=== PATIENT | male | born 1940 | race Caucasian/White ===

== ENCOUNTER → 2018-02-03 | Outpatient (CLI) | payer MEDICARE, BC | END | disposition home or self-care (01) | LOC: PNCL 08:16 | DX: M54.12 Radiculopathy, cervical region (principal) | CPT/HCPCS: 72125; G0463 ==

== ENCOUNTER → 2018-02-10 | Outpatient (CLI) | payer MEDICARE, BC ==
[~2018-02-10] MED LIST: IOHEXOL 180 MG/ML 10 ML VIAL.; LIDOCAINE 1% PF 2 ML VIAL.; methylPREDNISolone ACETATE 40 MG/ML VIAL.; methylPREDNISolone ACETATE 80 MG/ML VIAL.
== END | disposition home or self-care (01) ==
LOC: PNCL 09:21
DX: M50.123 Cervical disc disorder at C6-C7 level with radiculopathy (principal); M48.02 Spinal stenosis, cervical region; K21.9 Gastro-esophageal reflux disease without esophagitis; Z88.1 Allergy status to other antibiotic agents; Z88.8 Allergy status to other drugs, medicaments and biological substances; Z95.810 Presence of automatic (implantable) cardiac defibrillator; Z90.49 Acquired absence of other specified parts of digestive tract; Z85.46 Personal history of malignant neoplasm of prostate; Z90.79 Acquired absence of other genital organ(s); M19.90 Unspecified osteoarthritis, unspecified site; F17.200 Nicotine dependence, unspecified, uncomplicated; Z82.49 Family history of ischemic heart disease and other diseases of the circulatory system; Z83.3 Family history of diabetes mellitus
CPT/HCPCS: 62321; J1030; J1040; Q9965

== ENCOUNTER → 2018-02-24 | Outpatient (CLI) | payer MEDICARE, BC | END | disposition home or self-care (01) | LOC: PNCL 08:56 | DX: M50.10 Cervical disc disorder with radiculopathy, unspecified cervical region (principal); M48.02 Spinal stenosis, cervical region; I10 Essential (primary) hypertension; K21.9 Gastro-esophageal reflux disease without esophagitis; Z82.49 Family history of ischemic heart disease and other diseases of the circulatory system; Z83.3 Family history of diabetes mellitus; Z95.810 Presence of automatic (implantable) cardiac defibrillator; Z90.49 Acquired absence of other specified parts of digestive tract; Z90.79 Acquired absence of other genital organ(s) | CPT/HCPCS: G0463 ==

== ENCOUNTER 2018-06-10 09:17 | Inpatient (IN) | payer MEDICARE, BC ==
[2018-06-10] VITALS (22 sets, daily range): BP systolic 89–150; BP diastolic 60–87
[~2018-06-10] VITALS: Ht 188 cm; Wt 96.2 kg
[~2018-06-10 09:17] MED LIST changes: +AMIO200T4; +AMIO200T4 PO; +ASCO500T2 PO; +ASPI-482 PO; +BERBERINE; +CALC500T54 PO; +CHOL500016 PO; +D RIBOSE; +ESTRODIM; +GLUC100018 PO; +GRAPE SEED; +GREE250C PO; -IOHEXOL 180 MG/ML 10 ML VIAL.; +LEVO125T; -LIDOCAINE 1% PF 2 ML VIAL.; +MAGN400C PO; +METO200T46; +NIAC500T PO; +OMEG-165 PO; +OXYC1TAB15 PO; +POTA20TA4; +PRAS50CA PO; +TAMS0.4C2; +THYR60TA2 PO; +VITA1TAB19 PO; +VITA400C36 PO; +[UNRECOGNIZED DRUG - OTHER]; -methylPREDNISolone ACETATE 40 MG/ML VIAL.; -methylPREDNISolone ACETATE 80 MG/ML VIAL.
[2018-06-10] MEDS ORDERED: ESMOLOL 2500MG/250ML PREMIX 250 ML IV PRN (10:15)
[2018-06-10] MEDS ORDERED: LIDOCAINE 2GM/D5W 500ML PREMIX 500 ML IV PRN (10:15)
[2018-06-10] MEDS ORDERED: LIDOCAINE 2% 100 MG/5 ML SYRINGE. IV ONE (10:15)
[2018-06-10 11:16] LABS: HEMATOCRIT 37.2 % (39.0-53.0); RED BLOOD COUNT 3.75 x10^6/uL (4.30-5.70); RED CELL DISTRIBUTION WIDTH 12.5 % (11.5-14.5); WHITE BLOOD COUNT 5.2 x10^3/uL (4.0-11.0)
[2018-06-10] MEDS ORDERED: MIDAZOLAM HCL/PF 5 MG/5 ML VIAL. ONE ×2 (11:20→12:00)
[2018-06-10] MEDS ORDERED: fentaNYL PF VIAL 100 MCG/2 ML VIAL IV ONE (11:30)
[2018-06-10] MEDS ORDERED: MIDAZOLAM HCL/PF 2 MG/2 ML VIAL. IV ONE ×2 (11:30→13:30)
[2018-06-10] MEDS ORDERED: PROCAINAMIDE 2,000 MG in IV DEXTROSE 5% 500 ML IV PRN (11:30)
[2018-06-10 11:42] LABS: ALBUMIN 3.3 g/dL (3.4-5.0); ALBUMIN/GLOBULIN RATIO 1.1 (1.0-1.7); CALCIUM 8.2 mg/dL (8.5-10.1); GFR 72.5; POTASSIUM 4.4 mmol/L (3.5-5.1); TOTAL BILIRUBIN 0.7 mg/dL (0.2-1.0); TOTAL PROTEIN 6.2 g/dL (6.4-8.2)
[2018-06-10] MEDS ORDERED: PROPOFOL 100 ML IV ONE ×2 (11:53→14:46)
[2018-06-10] MEDS ORDERED: fentaNYL PF VIAL 100 MCG/2 ML VIAL ONE (12:00)
[2018-06-10] MEDS ORDERED: ROCURONIUM 50 MG/5 ML VIAL. ONE (12:00)
[2018-06-10] MEDS ORDERED: PROPOFOL 10 MG/ML (100ML) VIAL. IV ONE (12:00)
[2018-06-10] MEDS ORDERED: ETOMIDATE 20 MG/10 ML VIAL. IV ONE (12:00)
--- NOTE | 2018-06-10 12:06 | PDOC2 ---
CARDIOLOGY CONSULT NOTE CHEIF COMPLAINT: ICD shock. HPI: 77 y.o male with pmx has noted below presenting with ICD shocks. He reports feeling poorly for 2 weeks. Denies any chest pain or dyspnea. He came to ER with episodes of VF and was shocked. His ER labs were not significantly abnormal. Denies any recent changes to meds. Transferred to [place]. He has had recurrent shocks here. He has been started on Amiodarone, procainamide and esmolol gtts. No new OTC meds. PMHX: 1. 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 Normal LV function by echo in 2016 3. Prediabetes 4. Prostate CA. SOCHX: No smoking or illicit drugs. Occ alcohol use. FAMHX: NC CURRENT MEDS: amiodarone, procainamide and esmolol gtt ALLERGIES: Allergies Coded Allergies Type Severity Reaction Last Updated Verified mexiletine Allergy Severe 07/27/17 Yes Cephalosporins Allergy Intermediate itching and swelling 07/27/17 Yes amoxicillin Allergy Intermediate 07/27/17 Yes cefazolin Allergy Intermediate 07/27/17 Yes cephalexin Allergy Intermediate 07/27/17 Yes clavulanic acid Allergy Intermediate 07/27/17 Yes ROS: Negative for 05/02 systems reviewed unless noted above. PHYSICAL EXAM: Vital Signs: HR 60, BP 154/78, RR 14, Pox 95% on 2L Physical Exam: GEN.: No apparent distress. Alert and oriented. HEENT: Head is normocephalic, atraumatic NECK: Supple. LUNGS: Clear to auscultation. HEART: RRR, S1, S2 present. Peripheral pulses intact ABDOMEN: Soft, nontender. Positive bowel sounds. EXTREMITIES: Without any cyanosis. NEUROLOGIC: Normal speech, normal tone PSYCHIATRIC: Normal affect, normal mood. SKIN: No ulcerations DIAGNOSTIC TESTING: EKG: SR, frequent PVC's ICD interrogation: VF successful shocked. NSVT episodes. Labs reviewed, Mg 2.0, K 4.2 Limited Bedside echo: no effusion. EF 40%, global hypokinesis. ASSESSMENT: 1. VF storm 2. Idiopathic VT PLAN: 1. Due to recurrent shocks - approximately 7 despite IV amio and esmolol, will plan for intubation and sedation. 2. Discussed r/b/a of heart cath etc with patient and , they are willing to proceed. 3. Close monitoring of EKG's and lytes. 4. Will consider IABP if needed if any significant hypotension. JORGE LUIS FLORES MD Jun 10, 2018 12:06
[2018-06-10] MEDS ORDERED: MAGNESIUM SULFATE 1GM 100 ML IV ONE (12:30)
--- NOTE | 2018-06-10 12:30 | RAD ---
Single view chest 06/10/2018 CLINICAL INDICATION: Intubation. COMPARISON: None. FINDINGS: Endotracheal tube 3 cm above the level the enid. Mild cardiomegaly without pulmonary venous congestion. There is an irregular nodular opacity in the right midlung. No pleural effusion or pneumothorax. Mild basilar atelectasis. Left chest wall cardiac conduction device. There are multiple abandoned right cardiac conduction leads. IMPRESSION: 1. Endotracheal tube, as detailed. 2. Right midlung nodular opacity, indeterminate. Follow-up CT chest is recommended to exclude pulmonary nodule. Electronically signed by: Mo Mcneil MD (06/10/2018 12:27 PM) [facility]
[2018-06-10] MEDS ORDERED: MIDAZOLAM HCL/PF 2 MG/2 ML VIAL. ONE ×2 (12:32→13:18)
[2018-06-10] MEDS ORDERED: HEPARIN for IV BOLUS 10,000 UNIT/10 ML VIAL. ONE (12:51)
[2018-06-10] MEDS ORDERED: IODIXANOL 320 MG/ML 100 ML VIAL. ONE (13:08)
[2018-06-10] MEDS: IV NORMAL SALINE 1000ML BAG 1,000 ML IV SCH (13:08)
[2018-06-10] MEDS ORDERED: TIROFIBAN 5MG -0.9% NS 100 ML IV ONE (13:09)
[2018-06-10] MEDS: TIROFIBAN 5MG -0.9% NS 100 ML IV PRN ×2 (13:14→16:50)
[2018-06-10] MEDS ORDERED: NITROGLYCERIN 200 MCG/2 ML SYRINGE FOR CATH/VASC LAB. ICAR ONE (13:30)
[2018-06-10] MEDS ORDERED: ASPIRIN 325 MG TABLET PO ONE (13:30)
[2018-06-10] MEDS ORDERED: TICAGRELOR 90 MG TABLET. PO ONE (13:30)
[2018-06-10] MEDS ORDERED: LIDOCAINE 1% PF 30 ML VIAL. INJ ONE (13:30)
[2018-06-10] MEDS ORDERED: HEPARIN for IV BOLUS 10,000 UNIT/10 ML VIAL. IV ONE (13:30)
[2018-06-10] MEDS ORDERED: IODIXANOL 320 MG/ML 100 ML VIAL. IART ONE (13:30)
[2018-06-10] MEDS ORDERED: DEXTROSE 50% 25 GM / 50ML DISP.SYRIN. IV PRN (14:15)
[2018-06-10] MEDS ORDERED: MIDAZOLAM 100mg/100ml NS BAG 100 ML IV PRN (14:15)
[2018-06-10] MEDS ORDERED: fentaNYL PF VIAL 100 MCG/2 ML VIAL IV PRN (14:15)
[2018-06-10] MEDS: INSULIN LISPRO 300 UNITS/3 ML INSULN.PEN. SQ SCH ×2 (14:30→16:50)
[2018-06-10 15:50] LABS: BASE EXCESS ABG -4 mmol/L (-3-3); HCO3 ABG 19 mmol/L (21-28); PCO2 ABG 28 mmHg (35-46); PO2 ABG 144 mmHg (65-108); SAT O2 ABG 98 % (92-99)
[2018-06-10 15:54] LABS: FIO2 ABG 50
--- NOTE | 2018-06-10 15:55 | CARD ---
MR#: [id number] Date of Study: 06/10/2018 Ordering Physician: JORGE LUIS LONGORIA, Referring Physician: DALIA TREVIÑO, Tech: RT Ankur (R) APPROVED REPORT Technologist: RT Ankur (R) Nurse: Dayan Dahl R.N. Procedure(s) performed: Sedation time: 86 minutes [facility], Coronary angiography PCI of the LAD HISTORY The patient is a 77 year-old male with a history of : coronary artery disease, hypertension. INDICATION The indication(s) include : arrhythmia, VF/VT storm.. PROCEDURE NARRATIVE After explaining the risks and benefits of the procedure and alternatives, informed consent was obtai santiago. The patient was brought electively to the cardiac catheterization lab in a fasting state. A yaniv eout was performed confirming the patient's name, date of , procedure, and site of procedure. A ll necessary personnel were wearing the appropriate protective equipment and radiation monitor device s. (See nursing notes for medications administered). The right groin was sterilely prepped and drap ed in the usual fashion. The right groin was infiltrated with 10 mL of 2% lidocaine for subcutaneous anesthesia. A 6 F sheath was inserted into the right femoral artery without difficulty. Right and left coronary angiography was performed using a JR4 and JL4 catheter. Left ventricular end diastolic pressure was obtained with a pigtail catheter and pullback was performed after left ventriculography . Subsequently, a 5 Liberian sheath was inserted into the left common femoral artery in preparation for LAD angioplasty in the setting of VT storm for possibility of injured balloon pump placement if nece ssary. HEMODYNAMICS: AO: 80/60 LVEDP 8 mm Hg No gradient on LV to aortic pullback. LEFT VENTRICULOGRAM: EF 40-45%. Mild global hypokinesis. CORONARY ANGIOGRAPHY: LM is a large caliber vessel with a mid 30% stenosis followed by mid to distal ectasia. LAD is a large caliber vessel proximally and rapidly tapers to a small size vessel after the 1st diag onal. There is a mid 90% stenosis after the diagonal. D1 is a moderate caliber vessel with mild luminal irregularities. LCx is a moderate caliber non-dominant vessel with grossly normal appearance. This vessel has an anom alous origin from the RCC/RCA ostia. OM1 is a moderate caliber vessel with normal angiographic appearance. RCA is a large caliber dominant vessel with mild luminal irregularities. RPDA/RPL are moderate caliber vessels with mild luminal irregularities. Interventional technique: Heparin and tirofiban were used for an to regulation. In light of the patient's significant arrhythmi as with recurrent VF storm and ICD shocks and a critical LAD stenosis and intervention was then perfo rmed. Through a 6 Liberian JL4 guide catheter a 0.014 inch pro-water wire was advanced to the distal LA D. The mid LAD lesion was then angioplastied with a 2.5 x 15 mm balloon at 14 maciej and then subsequent only stented with a resolute 3.5 x 22 mm drug-eluting stent and postdilated with a 4.0 mm noncomplia nt balloon at 16 maciej. Post-PCI angiography demonstrated excellent stent expansion with ADRYAN-3 flow an d no evidence of guider wire-related competitions. The right groin access site sheath was removed and an Angio-Seal device was placed. The left groin ac cess site sheath was sutured to the skin and was used as an arterial line and the patient was transpo rted back to the ICU in critical condition. Conclusion 1. Cardiac arrest and subsequent shock due to VT/VF storm 2. One-vessel critical LAD stenosis status post PCI with a 3.5 x 22 mm drug-eluting stent postdilated with a 4.0 mm noncompliant balloon. 3. Normal left ventricular filling pressures Recommendations Aspirin 81 mg daily Ticagrelor 90 mg twice a day Continue statin therapy. Continue amiodarone and esmolol. We will wean off the procainamide drip over the next 12 hours. Supportive care for now. Discussed with family. Signed by : Jorge Luis Longoria, Electronically Approved : 06/10/2018 15:54:07
[2018-06-10] MEDS ORDERED: SODIUM BICARB ADULT 8.4% 50 MEQ/50 ML DISP.SYRIN. IV ONE (16:30)
--- NOTE | 2018-06-10 17:21 | EKG ---
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
--- NOTE | 2018-06-10 19:39 | PDOC1 ---
History and Physical History of Present Illness History of Present Illness HP per cards: 77 y.o male with pmx has noted below presenting with ICD shocks. He reports feeling poorly for 2 weeks. Denies any chest pain or dyspnea. He came to ER with episodes of VF and was shocked. His ER labs were not significantly abnormal. Denies any recent changes to meds. Transferred to [place]. He has had recurrent shocks here. He has been started on Amiodarone, procainamide and esmolol gtts. No new OTC meds. 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 Past Medical History Cardiovascular: HTN, Other Pulmonary: No pertinent hx GI: No pertinent hx Heme/Onc: No pertinent hx Hepatobiliary: No pertinent hx Psych: No pertinent hx Rheumatologic: No pertinent hx Infectious disease: No pertinent hx Renal/: No pertinent hx Endocrine: No pertinent hx Past Surgical History Past Surgical History: Pacemaker, Other Family History Family History: No Significant Social History ALCOHOL: rare Drugs: None Current Medications Current Medications Current Medications Medications (Trade) Dose Ordered Sig/Jl Start Time Stop Time Status Last Admin Dose Admin Aspirin (Raj Aspirin) 325 mg 1X ONCE 06/10/18 13:30 06/10/18 13:41 DC 06/10/18 14:23 325 MG Dextrose (Dextrose 50%-Water Syringe) 12.5 gm PRN Q15MIN PRN 06/10/18 14:15 Esmolol HCl 250 ml @ 0 mls/hr CONT PRN 06/10/18 10:15 06/10/18 11:07 29.257 MLS/HR Famotidine (Pepcid Vial) 20 mg BID 06/10/18 21:00 Fentanyl Citrate (Fentanyl 2ml Vial) 50 mcg PRN Q1HR PRN 06/10/18 14:15 Heparin Sodium (Porcine) (Heparin Sodium) 7,000 unit 1X ONCE 06/10/18 13:30 06/10/18 13:41 DC 06/10/18 13:30 7,000 UNIT Heparin Sodium/ Sodium Chloride (HEPARIN for ARTERIAL LINE FLUSH) 1,000 unit 1X ONCE 06/10/18 13:30 06/10/18 13:41 DC 06/10/18 13:30 1,000 UNIT Insulin Human Lispro (HumaLOG) 0-5 UNITS Q6HRS 06/10/18 14:30 Iodixanol (Visipaque 320) 209 ml 1X ONCE 06/10/18 13:30 06/10/18 13:41 DC 06/10/18 13:30 209 ML Lidocaine HCl (Lidocaine HCl 2% Abboject) 80 mg 1X ONCE 06/10/18 10:15 06/10/18 10:17 DC Lidocaine HCl (Xylocaine 1% Pf 30ml Vial) 18 ml 1X ONCE 06/10/18 13:30 06/10/18 13:41 DC 06/10/18 13:30 18 ML Lidocaine HCl/ Dextrose 500 ml @ 0 mls/hr CONT PRN 06/10/18 10:15 06/10/18 10:17 DC Magnesium Sulfate/ Dextrose 100 ml @ 100 mls/hr 1X ONCE 06/10/18 12:30 06/10/18 13:29 DC 06/10/18 13:58 100 MLS/HR Midazolam HCl 100 ml @ 0 mls/hr CONT PRN 06/10/18 14:15 06/10/18 14:58 3 MLS/HR Midazolam HCl (Versed) 4 mg 1X ONCE 06/10/18 13:30 06/10/18 13:41 DC 06/10/18 13:30 4 MG Nitroglycerin (Nitroglycerin) 200 mcg 1X ONCE 06/10/18 13:30 06/10/18 13:41 DC 06/10/18 13:30 200 MCG Procainamide HCl 2000 mg/Dextrose 520 ml @ 15.6 mls/hr CONT PRN 06/10/18 11:30 06/10/18 11:36 15.6 MLS/HR Propofol 100 ml @ As Directed STK-MED ONCE 06/10/18 14:46 06/10/18 14:47 DC Sodium Bicarbonate (Sodium Bicarb Adult 8.4% Syr) 50 meq 1X ONCE 06/10/18 16:30 06/10/18 16:31 DC 06/10/18 16:50 50 MEQ Sodium Chloride 1,000 ml @ 75 mls/hr [id number] 06/10/18 14:00 06/10/18 13:08 75 MLS/HR Ticagrelor (Brilinta) 180 mg 1X ONCE 06/10/18 13:30 06/10/18 13:41 DC 06/10/18 14:23 180 MG Tirofiban/Sodium Chloride 100 ml @ 0 mls/hr CONT PRN 06/10/18 13:30 06/10/18 19:30 DC 06/10/18 16:50 17.5 MLS/HR Allergies Allergies Allergies Coded Allergies Type Severity Reaction Last Updated Verified mexiletine Allergy Severe 07/27/17 Yes Cephalosporins Allergy Intermediate itching and swelling 07/27/17 Yes amoxicillin Allergy Intermediate 07/27/17 Yes cefazolin Allergy Intermediate 07/27/17 Yes cephalexin Allergy Intermediate 07/27/17 Yes clavulanic acid Allergy Intermediate 07/27/17 Yes ROS Review of System CONSTITUTIONAL: No fever or chills EYES: No recent changes SKIN: No rash or itching CARDIOVASCULAR: No chest pain, syncope, palpitations, or edema RESPIRATORY: No SOB or cough GASTROINTESTINAL: No nausea, vomiting or abdominal pain NEUROLOGICAL: No headaches or weakness ENDOCRINE: No cold or heat intolerance GENITOURINARY: No urgency or frequency of urination MUSCULOSKELETAL: No back pain or joint pain LYMPHATICS: No enlarged lymph nodes PSYCHIATRIC: No anxiety or depression Physical Exam Physical Exam GEN.: No apparent distress. Alert and oriented. HEENT: Head is normocephalic, atraumatic NECK: Supple. LUNGS: Clear to auscultation. HEART: RRR, S1, S2 present. Peripheral pulses intact ABDOMEN: Soft, nontender. Positive bowel sounds. EXTREMITIES: Without any cyanosis. NEUROLOGIC: Normal speech, normal tone PSYCHIATRIC: Normal affect, normal mood. SKIN: No ulcerations Vitals Vitals Vital Signs Date Time Temp Pulse Resp B/P (MAP) Pulse Ox O2 Delivery O2 Flow Rate FiO2 06/10/18 18:00 79 16 117/62 (80) 98 Ventilator 06/10/18 13:58 2.0 06/10/18 09:15 98.0 98.0 Labs Labs Laboratory Tests Test 06/10/18 11:05 06/10/18 14:59 06/10/18 15:45 06/10/18 16:45 White Blood Count 5.2 x10^3/uL (4.0-11.0) Red Blood Count 3.75 x10^6/uL (4.30-5.70) Hemoglobin 13.0 g/dL (13.0-17.5) Hematocrit 37.2 % (39.0-53.0) Mean Corpuscular Volume 99 fL (79-100) Mean Corpuscular Hemoglobin 35 pg (25-35) Mean Corpuscular Hemoglobin Concent 35 g/dL (31-37) Red Cell Distribution Width 12.5 % (11.5-14.5) Platelet Count 190 x10^3/uL (140-400) Sodium Level 136 mmol/L (136-145) Potassium Level 4.4 mmol/L (3.5-5.1) Chloride Level 105 mmol/L (98-107) Carbon Dioxide Level 26 mmol/L (21-32) Anion Gap 5 (6-14) Blood Urea Nitrogen 13 mg/dL (8-26) Creatinine 1.0 mg/dL (0.7-1.3) Estimated GFR (Cockcroft-Gault) 72.5 BUN/Creatinine Ratio 13 (6-20) Glucose Level 138 mg/dL (70-99) Calcium Level 8.2 mg/dL (8.5-10.1) Magnesium Level 2.0 mg/dL (1.8-2.4) Total Bilirubin 0.7 mg/dL (0.2-1.0) Aspartate Amino Transf (AST/SGOT) 21 U/L (15-37) Alanine Aminotransferase (ALT/SGPT) 27 U/L (16-63) Alkaline Phosphatase 59 U/L (46-116) Total Protein 6.2 g/dL (6.4-8.2) Albumin 3.3 g/dL (3.4-5.0) Albumin/Globulin Ratio 1.1 (1.0-1.7) Glucose (Fingerstick) 110 mg/dL (70-99) 101 mg/dL (70-99) O2 Saturation 98 % (92-99) Arterial Blood pH 7.45 (7.35-7.45) Arterial Blood pCO2 at Patient Temp 28 mmHg (35-46) Arterial Blood pO2 at Patient Temp 144 mmHg (65-108) Arterial Blood HCO3 19 mmol/L (21-28) Arterial Blood Base Excess -4 mmol/L (-3-3) FiO2 50 Laboratory Tests Test 06/10/18 11:05 06/10/18 14:59 06/10/18 15:45 06/10/18 16:45 White Blood Count 5.2 x10^3/uL (4.0-11.0) Red Blood Count 3.75 x10^6/uL (4.30-5.70) Hemoglobin 13.0 g/dL (13.0-17.5) Hematocrit 37.2 % (39.0-53.0) Mean Corpuscular Volume 99 fL (79-100) Mean Corpuscular Hemoglobin 35 pg (25-35) Mean Corpuscular Hemoglobin Concent 35 g/dL (31-37) Red Cell Distribution Width 12.5 % (11.5-14.5) Platelet Count 190 x10^3/uL (140-400) Sodium Level 136 mmol/L (136-145) Potassium Level 4.4 mmol/L (3.5-5.1) Chloride Level 105 mmol/L (98-107) Carbon Dioxide Level 26 mmol/L (21-32) Anion Gap 5 (6-14) Blood Urea Nitrogen 13 mg/dL (8-26) Creatinine 1.0 mg/dL (0.7-1.3) Estimated GFR (Cockcroft-Gault) 72.5 BUN/Creatinine Ratio 13 (6-20) Glucose Level 138 mg/dL (70-99) Calcium Level 8.2 mg/dL (8.5-10.1) Magnesium Level 2.0 mg/dL (1.8-2.4) Total Bilirubin 0.7 mg/dL (0.2-1.0) Aspartate Amino Transf (AST/SGOT) 21 U/L (15-37) Alanine Aminotransferase (ALT/SGPT) 27 U/L (16-63) Alkaline Phosphatase 59 U/L (46-116) Total Protein 6.2 g/dL (6.4-8.2) Albumin 3.3 g/dL (3.4-5.0) Albumin/Globulin Ratio 1.1 (1.0-1.7) Glucose (Fingerstick) 110 mg/dL (70-99) 101 mg/dL (70-99) O2 Saturation 98 % (92-99) Arterial Blood pH 7.45 (7.35-7.45) Arterial Blood pCO2 at Patient Temp 28 mmHg (35-46) Arterial Blood pO2 at Patient Temp 144 mmHg (65-108) Arterial Blood HCO3 19 mmol/L (21-28) Arterial Blood Base Excess -4 mmol/L (-3-3) FiO2 50 VTE Prophylaxis Ordered VTE Prophylaxis Devices: Yes VTE Pharmacological Prophylaxi: Yes Assessment/Plan Assessment/Plan Plan: Intubate/Sedated S/p cath + disease in LAD s/p stent defer further cardiac recc to cards poss extubate in am DALIA TREVIÑO MD Jun 10, 2018 19:39
[2018-06-10] MEDS: FAMOTIDINE 20 MG/2 ML VIAL IVP SCH (21:23)
[2018-06-10] MEDS: PROPOFOL 100 ML IV PRN (21:28)
[2018-06-11] VITALS (24 sets, daily range): BP systolic 83–147; BP diastolic 51–78
[2018-06-11] MEDS: PROPOFOL 100 ML IV PRN ×2 (03:02→09:12)
[2018-06-11] MEDS: INSULIN LISPRO 300 UNITS/3 ML INSULN.PEN. SQ SCH ×4 (06:00→17:00)
[2018-06-11] MEDS: IV NORMAL SALINE 1000ML BAG 1,000 ML IV SCH ×2 (06:50→18:45)
[2018-06-11] MEDS: FAMOTIDINE 20 MG/2 ML VIAL IVP SCH ×2 (08:17→20:55)
[2018-06-11] MEDS ORDERED: ASPIRIN CHEWABLE 81 MG TABLET. PO ONE (08:45)
[2018-06-11 08:56] LABS: BASE EXCESS ABG -3 mmol/L (-3-3); HCO3 ABG 20 mmol/L (21-28); PCO2 ABG 30 mmHg (35-46); PO2 ABG 108 mmHg (65-108); SAT O2 ABG 98 % (92-99)
[2018-06-11 08:57] LABS: FIO2 ABG 40
[2018-06-11] MEDS: TICAGRELOR 90 MG TABLET. PO SCH ×2 (09:14→20:54)
--- NOTE | 2018-06-11 09:59 | PDOC ---
CARDIOLOGY PROGRESS NOTE SUBJECTIVE: No acute events overnight. Sedated. Intubated. OBJECTIVE: Vital SIgns: Vital Signs Date Time Temp Pulse Resp B/P (MAP) Pulse Ox O2 Delivery O2 Flow Rate FiO2 06/11/18 09:00 86 16 86/53 (64) 99 Ventilator 06/11/18 07:00 99.5 99.5 06/10/18 13:58 2.0 I & O Intake and Output 06/11/18 07:00 Intake Total 923.8 ml Output Total 1675 ml Balance -751.2 ml Intake Oral 0 ml IV Total 923.8 ml Output Urine Total 1675 ml Objective: Sedated. Normal heart tones. Clr lungs No edema. Soft groin CURRENT MEDICATIONS: asa, ticagrelor, toprol XL, statin therapy. Amiodarone gtt. DIAGNOSTIC TESTING: Labs/CXR pending ASSESSMENT: 1. VF storm 2. One vessel LAD disease s/p PCI 3. Mixed ischemic and non-ischemic CMP PLAN: 1. Continue present meds. 2. Extubated today per pulmonary 3. Plan for continued forced A-V pacing. 4. Change mode tomorrow. Supportive care. JORGE LUIS FLORES MD Jun 11, 2018 09:59
[2018-06-11] MEDS ORDERED: METOPROLOL SUCC 24HR ER 25 MG TAB.ER.24H. PO ONE (10:00)
--- NOTE | 2018-06-11 10:25 | RAD ---
Single view of the chest. 06/11/2018 9:57 AM Indication: ICU PATIENT. INTUBATION. PRIOR XRAY. Comparison: Chest radiograph June 10, 2018 Findings: Endotracheal tube is stable in configuration. Enteric tube is in place and extends below the diaphragm. Left-sided pacemaking device and right-sided pacemaker leads appear grossly similar. No pneumothorax is identified. No significant pleural effusion is identified. No focal consolidative infiltrate is seen. Heart size appears stable. No acute osseous changes are noted. Nodular opacity in the right midlung is not visualized on today's radiograph. IMPRESSION: 1. Interval placement of enteric tube extending below the diaphragm. Otherwise stable support lines and tubes 2. Nodular opacity seen on prior radiograph is visualized on today's study Electronically signed by: Nolan Hassan MD (06/11/2018 10:22 AM) [id number]
[2018-06-11 11:54] LABS: GFR 72.5; POTASSIUM 3.8 mmol/L (3.5-5.1)
[2018-06-11] MEDS: AMIODARONE 450 MG in IV DEXTROSE 5% 250 ML IV PRN (12:32)
[2018-06-11] MEDS ORDERED: POTASSIUM CHLORIDE 20 MEQ TABLET.ER. PO ONE (13:00)
[2018-06-11] MEDS ORDERED: MAGNESIUM SULFATE 2GM 50 ML IV ONE (13:00)
--- NOTE | 2018-06-11 15:33 | PDOC ---
PULMONARY PROGRESS NOTES Vitals Vital Signs Date Time Temp Pulse Resp B/P (MAP) Pulse Ox O2 Delivery O2 Flow Rate FiO2 06/11/18 14:00 80 16 132/76 (94) 99 Ventilator 06/11/18 11:00 98.6 4.0 98.6 Labs Laboratory Tests Test 06/10/18 11:05 06/10/18 14:59 06/10/18 15:45 06/10/18 16:45 White Blood Count 5.2 x10^3/uL (4.0-11.0) Red Blood Count 3.75 x10^6/uL (4.30-5.70) Hemoglobin 13.0 g/dL (13.0-17.5) Hematocrit 37.2 % (39.0-53.0) Mean Corpuscular Volume 99 fL (79-100) Mean Corpuscular Hemoglobin 35 pg (25-35) Mean Corpuscular Hemoglobin Concent 35 g/dL (31-37) Red Cell Distribution Width 12.5 % (11.5-14.5) Platelet Count 190 x10^3/uL (140-400) Sodium Level 136 mmol/L (136-145) Potassium Level 4.4 mmol/L (3.5-5.1) Chloride Level 105 mmol/L (98-107) Carbon Dioxide Level 26 mmol/L (21-32) Anion Gap 5 (6-14) Blood Urea Nitrogen 13 mg/dL (8-26) Creatinine 1.0 mg/dL (0.7-1.3) Estimated GFR (Cockcroft-Gault) 72.5 BUN/Creatinine Ratio 13 (6-20) Glucose Level 138 mg/dL (70-99) Calcium Level 8.2 mg/dL (8.5-10.1) Magnesium Level 2.0 mg/dL (1.8-2.4) Total Bilirubin 0.7 mg/dL (0.2-1.0) Aspartate Amino Transf (AST/SGOT) 21 U/L (15-37) Alanine Aminotransferase (ALT/SGPT) 27 U/L (16-63) Alkaline Phosphatase 59 U/L (46-116) Total Protein 6.2 g/dL (6.4-8.2) Albumin 3.3 g/dL (3.4-5.0) Albumin/Globulin Ratio 1.1 (1.0-1.7) Glucose (Fingerstick) 110 mg/dL (70-99) 101 mg/dL (70-99) O2 Saturation 98 % (92-99) Arterial Blood pH 7.45 (7.35-7.45) Arterial Blood pCO2 at Patient Temp 28 mmHg (35-46) Arterial Blood pO2 at Patient Temp 144 mmHg (65-108) Arterial Blood HCO3 19 mmol/L (21-28) Arterial Blood Base Excess -4 mmol/L (-3-3) FiO2 50 Test 06/11/18 00:09 06/11/18 06:51 06/11/18 08:35 06/11/18 11:25 Glucose (Fingerstick) 80 mg/dL (70-99) 93 mg/dL (70-99) O2 Saturation 98 % (92-99) Arterial Blood pH 7.44 (7.35-7.45) Arterial Blood pCO2 at Patient Temp 30 mmHg (35-46) Arterial Blood pO2 at Patient Temp 108 mmHg (65-108) Arterial Blood HCO3 20 mmol/L (21-28) Arterial Blood Base Excess -3 mmol/L (-3-3) FiO2 40 Sodium Level 139 mmol/L (136-145) Potassium Level 3.8 mmol/L (3.5-5.1) Chloride Level 105 mmol/L (98-107) Carbon Dioxide Level 24 mmol/L (21-32) Anion Gap 10 (6-14) Blood Urea Nitrogen 10 mg/dL (8-26) Creatinine 1.0 mg/dL (0.7-1.3) Estimated GFR (Cockcroft-Gault) 72.5 Glucose Level 110 mg/dL (70-99) Calcium Level 8.0 mg/dL (8.5-10.1) Magnesium Level 2.0 mg/dL (1.8-2.4) Test 06/11/18 12:27 Glucose (Fingerstick) 97 mg/dL (70-99) Laboratory Tests Test 06/10/18 15:45 06/10/18 16:45 06/11/18 00:09 06/11/18 06:51 O2 Saturation 98 % (92-99) Arterial Blood pH 7.45 (7.35-7.45) Arterial Blood pCO2 at Patient Temp 28 mmHg (35-46) Arterial Blood pO2 at Patient Temp 144 mmHg (65-108) Arterial Blood HCO3 19 mmol/L (21-28) Arterial Blood Base Excess -4 mmol/L (-3-3) FiO2 50 Glucose (Fingerstick) 101 mg/dL (70-99) 80 mg/dL (70-99) 93 mg/dL (70-99) Test 06/11/18 08:35 06/11/18 11:25 06/11/18 12:27 O2 Saturation 98 % (92-99) Arterial Blood pH 7.44 (7.35-7.45) Arterial Blood pCO2 at Patient Temp 30 mmHg (35-46) Arterial Blood pO2 at Patient Temp 108 mmHg (65-108) Arterial Blood HCO3 20 mmol/L (21-28) Arterial Blood Base Excess -3 mmol/L (-3-3) FiO2 40 Sodium Level 139 mmol/L (136-145) Potassium Level 3.8 mmol/L (3.5-5.1) Chloride Level 105 mmol/L (98-107) Carbon Dioxide Level 24 mmol/L (21-32) Anion Gap 10 (6-14) Blood Urea Nitrogen 10 mg/dL (8-26) Creatinine 1.0 mg/dL (0.7-1.3) Estimated GFR (Cockcroft-Gault) 72.5 Glucose Level 110 mg/dL (70-99) Calcium Level 8.0 mg/dL (8.5-10.1) Magnesium Level 2.0 mg/dL (1.8-2.4) Glucose (Fingerstick) 97 mg/dL (70-99) Medications Active Scripts Medications Dose Route/Sig Max Daily Dose Days Date Category [estrodim] BID 02/03/18 Reported [pectacol] 6 Tab DAILY 02/03/18 Reported Green Tea Extract (Green Tea [place] Extract) 250 Mg Capsule 350 Mg PO BID 02/03/18 Reported Glucosamine (Glucosamine Sulfate 2KCL) 1,000 Mg Tablet 2,000 Mg PO DAILY 02/03/18 Reported [berberine/grape seed] DAILY 02/03/18 Reported [D ribose] Unknown Dose 02/03/18 Reported Fish Oil 1,000 mg Softgel ([place]-3S/Dha/Epa/Fish Oil) 1 Each Capsule 1 Each PO DAILY 02/03/18 Reported Vitamin E (Vitamin E Mixed) 400 Unit Capsule 400 Unit PO DAILY 02/03/18 Reported Percocet 5-325 Mg Tablet (Oxycodone/Acetaminophen) 1 Each Tablet 1-2 Tab PO Q4HRS PRN 07/29/17 Reported Vitamin C (Ascorbic Acid) 500 Mg Tablet 500 Mg PO DAILY 07/27/17 Reported Vitamin D3 (Cholecalciferol (Vitamin D3)) 5,000 Unit Tablet 1 Tab PO DAILY 07/27/17 Reported Calcium (Calcium Carbonate) 500 Mg Tab.chew 600 Mg PO DAILY 07/27/17 Reported Niaspan (Niacin) 500 Mg Tab.er.24h 1 Tab PO DAILY 07/27/17 Reported B Complex (Vitamin B Complex) 1 Each Tablet 1 Each PO DAILY 07/27/17 Reported Dhea (Prasterone (Dhea)) 50 Mg Capsule 75 Mg PO DAILY 07/27/17 Reported Aspir 81 (Aspirin) 81 Mg Tablet.dr 1 Tab PO HS 07/27/17 Reported Magnesium (Magnesium Oxide) 400 Mg Capsule 1 Cap PO BID 07/27/17 Reported Amiodarone Hcl 200 Mg Tablet 100 Mg PO QODAY 07/27/17 Reported Klor-Con M20 (Potassium Chloride) 20 Meq Tab.er.prt [id number] 07/27/17 Reported Metoprolol Succinate ( Xl ) (Metoprolol Succinate) 200 Mg Tab.er.24h 100 DAILY 07/27/17 Reported Synthroid (Levothyroxine Sodium) 125 Mcg Tablet 125 DAILY 07/27/17 Reported Amiodarone Hcl 200 Mg Tablet 200 QODAY 07/27/17 Reported Impression . NOTE DICTATED PT EXTUBATED DOING WELL WILL FOLLOW S/P VT AND EMERGENT CATH DANYA VEE MD Jun 11, 2018 15:33
[2018-06-11] MEDS ORDERED: ACETAMINOPHEN 650 MG/20.3 ML SOLUTION. PEG PRN (15:45)
[2018-06-11] MEDS ORDERED: DEXTROSE 50% 25 GM / 50ML DISP.SYRIN. IV PRN (16:00)
--- NOTE | 2018-06-11 18:04 | CARD ---
MR#: [id number] Date of Study: 06/11/2018 Ordering Physician: JORGE LUIS FLORES, Referring Physician: DALIA TREVIÑO, Tech: Kristal Martinez AMARIS APPROVED REPORT EXAM: Two-dimensional and M-mode echocardiogram with Doppler and color Doppler. Other Information Quality : Technically LimitedHR: 80bpm Rhythm : NSRTechnically limited study due to body habitus. INDICATION Arrhythmia 2D DIMENSIONS RVDd3.8 (2.9-3.5cm)Left Atrium(2D)3.7 (1.6-4.0cm) IVSd1.0 (0.7-1.1cm)Aortic Root(2D)3.7 (2.0-3.7cm) LVDd5.1 (3.9-5.9cm)LVOT Diameter2.8 (1.8-2.4cm) PWd1.1 (0.7-1.1cm)LVDs3.6 (2.5-4.0cm) FS (%) 29.6 %SV70.6 ml LVEF(%)56.2 (>50%) M-Mode DIMENSIONS Left Atrium(MM)3.87 (2.5-4.0cm)Aortic Root3.87 (2.2-3.7cm) Aortic Valve AoV Peak Sim.116.3cm/sAoV VTI23.4cm AO Peak GR.5.4mmHgLVOT Peak Sim.83.0cm/s AO Mean GR.3mmHgAVA (VMAX)4.24cm2 CORBY (VTI)3.90cm2 Mitral Valve MV E Mxrqwpna21.3cm/sMV DECEL [id number] MV A Kvubocjy73.0cm/sE/A Ratio0.9 MV A Phtlzgtl103wo Pulmonary Valve PV Peak Rtycozlw14.0cm/s Tricuspid Valve TR P. Dzruoned581zn/sRAP HHAKBUJC34bmMm TR Peak Gr.14pySiNDRL57wrYc LEFT VENTRICLE The left ventricle is normal size. There is mild concentric left ventricular hypertrophy. The left ve ntricular systolic function is normal and the ejection fraction is within normal range. The Ejection Fraction is 55%. There is normal LV segmental wall motion. Septal motion consistent with conduction a bnormality. Transmitral Doppler flow pattern is Grade II-pseudonormal filling dynamics. RIGHT VENTRICLE The right ventricle is borderline dilated. There is normal right ventricular wall thickness. The righ t ventricular systolic function is normal. ICD lead noted in RA/RV. ATRIA The left atrium is borderline dilated. The right atrium is borderline dilated. The interatrial septum is intact with no evidence for an atrial septal defect or patent foramen ovale as noted on 2-D or Do ppler imaging. AORTIC VALVE The aortic valve is calcified but opens well. The aortic valve is trileaflet. Doppler and Color Flow revealed no significant aortic regurgitation. There is no significant aortic valvular stenosis. MITRAL VALVE The mitral valve is normal in structure and function. There is no evidence of mitral valve prolapse. There is no mitral valve stenosis. Doppler and Color Flow revealed no mitral valve regurgitation note d. TRICUSPID VALVE The tricuspid valve is not well visualized. Doppler and Color Flow revealed trace tricuspid regurgita tion. The PA pressure was estimated at 41 mmHg. The tricuspid valve is not well visualized. There is no tricuspid valve stenosis. PULMONIC VALVE The pulmonic valve is not well visualized. GREAT VESSELS The aortic root is normal in size. The ascending aorta is normal in size. PERICARDIAL EFFUSION There is no evidence of significant pericardial effusion. Critical Notification Critical Value: No <Conclusion> The left ventricular systolic function is normal and the ejection fraction is within normal range. Th e Ejection Fraction is 55%. There is normal LV segmental wall motion. Septal motion consistent with conduction abnormality. ICD lead noted in RA/RV. The right ventricle is borderline dilated. Signed by : Jorge Luis Flores, Electronically Approved : 06/11/2018 18:03:08
--- NOTE | 2018-06-11 18:33 | CONS ---
DATE OF CONSULTATION: 06/11/2018 ATTENDING PHYSICIAN: Dr. Garvey REASON FOR CONSULTATION: The patient was seen in pulmonary consultation at the request of Dr. Longoria for vent management. HISTORY OF PRESENT ILLNESS: The patient is a 77-year-old male with a history of previous V-tach, status post ICD placement 20 years ago, presented with having difficulty, not feeling well for the past 2 weeks, denied any chest pain or pressure in the Emergency Room. He had an episode of ventricular fibrillation and was shocked. The patient was taken to the cardiac catheterization lab and found to have a single vessel occlusion. He underwent PCI to the LAD. He had normal left ventricular filling pressures. The patient was placed on amiodarone and esmolol. This morning, he was on mechanical ventilation. He was being given a trial and he self-extubated himself. He is currently off of mechanical ventilation. He is awake, alert and following commands. He smoked for a short period of time many years ago. He denies fever, chills, nausea, vomiting or diarrhea. PAST MEDICAL HISTORY: History of ventricular tachycardia, previous history of ICD placement, hypertension and remote history of tobacco use for a short period of time. PAST SURGICAL HISTORY: As above. FAMILY HISTORY: Nonsignificant. SOCIAL HISTORY: He is rare use of alcohol and smoked for a very short period of time. REVIEW OF SYSTEMS: As indicated above, otherwise, a 10-point system was reviewed and negative. ALLERGIES: CEPHALOSPORINS, AMOXICILLIN, CEFAZOLIN, CEPHALEXIN AND MEXILETINE. PHYSICAL EXAMINATION: GENERAL: The patient was in the intensive care unit. He was off mechanical ventilation awake, alert and following commands. HEENT: Eyes, the sclerae were nonicteric. NECK: Jugular venous distention was not elevated. No lymphadenopathy. CHEST: Full expansion. LUNGS: Adequate airway flow with no wheezes. CARDIOVASCULAR: Regular rate and rhythm with S1, S2, no S3. ABDOMEN: Soft, nontender and nondistended. EXTREMITIES: No clubbing, cyanosis or edema. NEUROLOGIC: The patient was awake, alert and following commands. A detailed neuro exam was not performed. LABORATORY DATA: Reviewed. White count was normal. Hemoglobin and hematocrit were noted. Arterial blood gas noted. Electrolytes were normal. Chest x-ray revealed no acute infiltrates. IMPRESSION: 1. Acute respiratory failure, status post recurrent ventricular tachycardia, status post resuscitation in the Emergency Room. 2. Emergent cardiac catheterization revealing stenosis of the LAD, status post PCI. 3. Mixed ischemic and nonischemic cardiomyopathy. PLAN: 1. The patient extubated as indicated above. 2. Continue current support. 3. Follow Cardiology input. I do appreciate the privilege in sharing in the patient's care. DANYA VEE MD DR: BENIGNO/elizabeth JOB#: [id number] / [id number]
--- NOTE | 2018-06-11 19:33 | PDOC ---
PROGRESS NOTES History of Present Illness History of Present Illness Pt sleeping at bedside No further shocks since LAD stenting Will c/t monitor Cardiac meds per cards team Vitals Vitals Vital Signs Date Time Temp Pulse Resp B/P (MAP) Pulse Ox O2 Delivery O2 Flow Rate FiO2 06/11/18 18:00 80 16 140/72 (94) 99 Room Air 06/11/18 15:00 98.6 98.6 06/11/18 11:00 4.0 Labs LABS Laboratory Tests Test 06/11/18 00:09 06/11/18 06:51 06/11/18 08:35 06/11/18 11:25 Glucose (Fingerstick) 80 mg/dL (70-99) 93 mg/dL (70-99) O2 Saturation 98 % (92-99) Arterial Blood pH 7.44 (7.35-7.45) Arterial Blood pCO2 at Patient Temp 30 mmHg (35-46) Arterial Blood pO2 at Patient Temp 108 mmHg (65-108) Arterial Blood HCO3 20 mmol/L (21-28) Arterial Blood Base Excess -3 mmol/L (-3-3) FiO2 40 Sodium Level 139 mmol/L (136-145) Potassium Level 3.8 mmol/L (3.5-5.1) Chloride Level 105 mmol/L (98-107) Carbon Dioxide Level 24 mmol/L (21-32) Anion Gap 10 (6-14) Blood Urea Nitrogen 10 mg/dL (8-26) Creatinine 1.0 mg/dL (0.7-1.3) Estimated GFR (Cockcroft-Gault) 72.5 Glucose Level 110 mg/dL (70-99) Calcium Level 8.0 mg/dL (8.5-10.1) Magnesium Level 2.0 mg/dL (1.8-2.4) Test 06/11/18 12:27 06/11/18 17:31 Glucose (Fingerstick) 97 mg/dL (70-99) 142 mg/dL (70-99) Comment Review of Relevant I have reviewed the following items guille (where applicable) has been applied. Labs Laboratory Tests Test 06/10/18 09:20 06/10/18 11:05 06/10/18 14:59 06/10/18 15:45 Nasal Screen MRSA (PCR) Negative (Negative) White Blood Count 5.2 x10^3/uL (4.0-11.0) Red Blood Count 3.75 x10^6/uL (4.30-5.70) Hemoglobin 13.0 g/dL (13.0-17.5) Hematocrit 37.2 % (39.0-53.0) Mean Corpuscular Volume 99 fL (79-100) Mean Corpuscular Hemoglobin 35 pg (25-35) Mean Corpuscular Hemoglobin Concent 35 g/dL (31-37) Red Cell Distribution Width 12.5 % (11.5-14.5) Platelet Count 190 x10^3/uL (140-400) Sodium Level 136 mmol/L (136-145) Potassium Level 4.4 mmol/L (3.5-5.1) Chloride Level 105 mmol/L (98-107) Carbon Dioxide Level 26 mmol/L (21-32) Anion Gap 5 (6-14) Blood Urea Nitrogen 13 mg/dL (8-26) Creatinine 1.0 mg/dL (0.7-1.3) Estimated GFR (Cockcroft-Gault) 72.5 BUN/Creatinine Ratio 13 (6-20) Glucose Level 138 mg/dL (70-99) Calcium Level 8.2 mg/dL (8.5-10.1) Magnesium Level 2.0 mg/dL (1.8-2.4) Total Bilirubin 0.7 mg/dL (0.2-1.0) Aspartate Amino Transf (AST/SGOT) 21 U/L (15-37) Alanine Aminotransferase (ALT/SGPT) 27 U/L (16-63) Alkaline Phosphatase 59 U/L (46-116) Total Protein 6.2 g/dL (6.4-8.2) Albumin 3.3 g/dL (3.4-5.0) Albumin/Globulin Ratio 1.1 (1.0-1.7) Glucose (Fingerstick) 110 mg/dL (70-99) O2 Saturation 98 % (92-99) Arterial Blood pH 7.45 (7.35-7.45) Arterial Blood pCO2 at Patient Temp 28 mmHg (35-46) Arterial Blood pO2 at Patient Temp 144 mmHg (65-108) Arterial Blood HCO3 19 mmol/L (21-28) Arterial Blood Base Excess -4 mmol/L (-3-3) FiO2 50 Test 06/10/18 16:45 06/11/18 00:09 06/11/18 06:51 06/11/18 08:35 Glucose (Fingerstick) 101 mg/dL (70-99) 80 mg/dL (70-99) 93 mg/dL (70-99) O2 Saturation 98 % (92-99) Arterial Blood pH 7.44 (7.35-7.45) Arterial Blood pCO2 at Patient Temp 30 mmHg (35-46) Arterial Blood pO2 at Patient Temp 108 mmHg (65-108) Arterial Blood HCO3 20 mmol/L (21-28) Arterial Blood Base Excess -3 mmol/L (-3-3) FiO2 40 Test 06/11/18 11:25 06/11/18 12:27 06/11/18 17:31 Sodium Level 139 mmol/L (136-145) Potassium Level 3.8 mmol/L (3.5-5.1) Chloride Level 105 mmol/L (98-107) Carbon Dioxide Level 24 mmol/L (21-32) Anion Gap 10 (6-14) Blood Urea Nitrogen 10 mg/dL (8-26) Creatinine 1.0 mg/dL (0.7-1.3) Estimated GFR (Cockcroft-Gault) 72.5 Glucose Level 110 mg/dL (70-99) Calcium Level 8.0 mg/dL (8.5-10.1) Magnesium Level 2.0 mg/dL (1.8-2.4) Glucose (Fingerstick) 97 mg/dL (70-99) 142 mg/dL (70-99) Laboratory Tests Test 06/11/18 00:09 06/11/18 06:51 06/11/18 08:35 06/11/18 11:25 Glucose (Fingerstick) 80 mg/dL (70-99) 93 mg/dL (70-99) O2 Saturation 98 % (92-99) Arterial Blood pH 7.44 (7.35-7.45) Arterial Blood pCO2 at Patient Temp 30 mmHg (35-46) Arterial Blood pO2 at Patient Temp 108 mmHg (65-108) Arterial Blood HCO3 20 mmol/L (21-28) Arterial Blood Base Excess -3 mmol/L (-3-3) FiO2 40 Sodium Level 139 mmol/L (136-145) Potassium Level 3.8 mmol/L (3.5-5.1) Chloride Level 105 mmol/L (98-107) Carbon Dioxide Level 24 mmol/L (21-32) Anion Gap 10 (6-14) Blood Urea Nitrogen 10 mg/dL (8-26) Creatinine 1.0 mg/dL (0.7-1.3) Estimated GFR (Cockcroft-Gault) 72.5 Glucose Level 110 mg/dL (70-99) Calcium Level 8.0 mg/dL (8.5-10.1) Magnesium Level 2.0 mg/dL (1.8-2.4) Test 06/11/18 12:27 06/11/18 17:31 Glucose (Fingerstick) 97 mg/dL (70-99) 142 mg/dL (70-99) Medications Current Medications Lidocaine HCl/ Dextrose 500 ml @ 0 mls/hr CONT PRN IV SEE I/O RECORD; Start at 10:15; Stop 06/10/18 at 10:17; Status DC Lidocaine HCl (Lidocaine HCl 2% Abboject) 80 mg 1X ONCE IV ; Start 06/10/18 at 10:15; Stop 06/10/18 at 10:17; Status DC Esmolol HCl 250 ml @ 0 mls/hr CONT PRN IV SEE I/O RECORD Last administered on 06/10/18at 11:07; Start 06/10/18 at 10:15 Fentanyl Citrate (Fentanyl 2ml Vial) 50 mcg 1X ONCE IV Last administered on at 13:58; Start 06/10/18 at 11:30; Stop 06/10/18 at 11:31; Status DC Midazolam HCl (Versed) 2 mg 1X ONCE IV ; Start 06/10/18 at 11:30; Stop at 11:31; Status DC Procainamide HCl 2000 mg/Dextrose 520 ml @ 15.6 mls/hr CONT PRN IV SEE I/O RECORD Last administered on 06/10/18at 11:36; Start 06/10/18 at 11:30 Midazolam HCl (Versed) 5 mg STK-MED ONCE .ROUTE ; Start 06/10/18 at 11:20; Stop 06/10/18 at 11:21; Status DC Propofol 100 ml @ As Directed STK-MED ONCE IV ; Start 06/10/18 at 11:53; Stop 06/10/18 at 11:54; Status DC Magnesium Sulfate/ Dextrose 100 ml @ 100 mls/hr 1X ONCE IV Last administered on 06/10/18at 13:58; Start 06/10/18 at 12:30; Stop 06/10/18 at 13:29; Status DC Midazolam HCl (Versed) 2 mg STK-MED ONCE .ROUTE ; Start 06/10/18 at 12:32; Stop 06/10/18 at 12:34; Status DC Heparin Sodium (Porcine) (Heparin Sodium) 10,000 unit STK-MED ONCE .ROUTE ; Start 06/10/18 at 12:51; Stop 06/10/18 at 12:52; Status DC Iodixanol (Visipaque 320) 100 ml STK-MED ONCE .ROUTE ; Start 06/10/18 at 13:08 ; Stop 06/10/18 at 13:09; Status DC Tirofiban/Sodium Chloride 100 ml @ As Directed STK-MED ONCE IV ; Start at 13:09; Stop 06/10/18 at 13:10; Status DC Midazolam HCl (Versed) 2 mg STK-MED ONCE .ROUTE ; Start 06/10/18 at 13:18; Stop 06/10/18 at 13:19; Status DC Nitroglycerin (Nitroglycerin) 200 mcg 1X ONCE ICAR Last administered on at 13:30; Start 06/10/18 at 13:30; Stop 06/10/18 at 13:41; Status DC Heparin Sodium/ Sodium Chloride (HEPARIN for ARTERIAL LINE FLUSH) 1,000 unit 1X ONCE IART Last administered on 06/10/18at 13:30; Start 06/10/18 at 13:30; Stop 06/10/18 at 13:41; Status DC Heparin Sodium/ Sodium Chloride (HEPARIN for ARTERIAL LINE FLUSH) 1,000 unit 1X ONCE IART Last administered on 06/10/18at 13:30; Start 06/10/18 at 13:30; Stop 06/10/18 at 13:41; Status DC Midazolam HCl (Versed) 4 mg 1X ONCE IV Last administered on 06/10/18at 13:30; Start 06/10/18 at 13:30; Stop 06/10/18 at 13:41; Status DC Iodixanol (Visipaque 320) 209 ml 1X ONCE IART Last administered on 06/10/18at 13:30; Start 06/10/18 at 13:30; Stop 06/10/18 at 13:41; Status DC Ticagrelor (Brilinta) 180 mg 1X ONCE PO Last administered on 06/10/18at 14:23 ; Start 06/10/18 at 13:30; Stop 06/10/18 at 13:41; Status DC Aspirin (Raj Aspirin) 325 mg 1X ONCE PO Last administered on 06/10/18at 14: 23; Start 06/10/18 at 13:30; Stop 06/10/18 at 13:41; Status DC Heparin Sodium (Porcine) (Heparin Sodium) 7,000 unit 1X ONCE IV Last administered on 06/10/18at 13:30; Start 06/10/18 at 13:30; Stop 06/10/18 at 13 :41; Status DC Tirofiban/Sodium Chloride 100 ml @ 0 mls/hr CONT PRN IV PER PROTOCOL Last administered on 06/10/18at 16:50; Start 06/10/18 at 13:30; Stop 06/10/18 at 19 :30; Status DC Lidocaine HCl (Xylocaine 1% Pf 30ml Vial) 18 ml 1X ONCE INJ Last administered on 06/10/18at 13:30; Start 06/10/18 at 13:30; Stop 06/10/18 at 13:41; Status DC Sodium Chloride 1,000 ml @ 75 mls/hr [id number] IV Last administered on at 18:45; Start 06/10/18 at 14:00 Insulin Human Lispro (HumaLOG) 0-5 UNITS Q6HRS SQ ; Start 06/10/18 at 14:30; Stop 06/11/18 at 15:57; Status DC Dextrose (Dextrose 50%-Water Syringe) 12.5 gm PRN Q15MIN PRN IV SEE COMMENTS; Start 06/10/18 at 14:15; Stop 06/11/18 at 15:57; Status DC Fentanyl Citrate (Fentanyl 2ml Vial) 50 mcg PRN Q1HR PRN IV SEE COMMENTS; Start 06/10/18 at 14:15 Midazolam HCl 100 ml @ 0 mls/hr CONT PRN IV SEE PROTOCOL Last administered on 06/10/18at 14:58; Start 06/10/18 at 14:15; Stop 06/11/18 at 15:57; Status DC Propofol 100 ml @ As Directed STK-MED ONCE IV ; Start 06/10/18 at 14:46; Stop 06/10/18 at 14:47; Status DC Famotidine (Pepcid Vial) 20 mg BID IVP Last administered on 06/11/18at 08:17; Start 06/10/18 at 21:00 Sodium Bicarbonate (Sodium Bicarb Adult 8.4% Syr) 50 meq 1X ONCE IV Last administered on 06/10/18at 16:50; Start 06/10/18 at 16:30; Stop 06/10/18 at 16 :31; Status DC Propofol 100 ml @ 0 mls/hr CONT PRN IV SEE I/O RECORD Last administered on at 09:12; Start 06/10/18 at 21:15; Stop 06/11/18 at 15:57; Status DC Rocuronium [place] (Zemuron) 50 mg STK-MED ONCE .ROUTE ; Start 06/10/18 at 12: 00; Stop 06/11/18 at 07:23; Status DC Etomidate (Amidate) 20 mg STK-MED ONCE IV ; Start 06/10/18 at 12:00; Stop at 07:23; Status DC Aspirin (Children'S Aspirin) 81 mg 1X ONCE PO Last administered on 06/11/18at 09:14; Start 06/11/18 at 08:45; Stop 06/11/18 at 08:46; Status DC Aspirin (Children'S Aspirin) 81 mg DAILYWBKFT PO ; Start 06/12/18 at 08:00 Ticagrelor (Brilinta) 90 mg BID PO Last administered on 06/11/18at 09:14; Start 06/11/18 at 09:00 Amiodarone HCl 450 mg/Dextrose 259 ml @ 17.26 mls/ hr CONT PRN IV SEE I/O RECORD Last administered on 06/11/18at 12:32; Start 06/11/18 at 09:45 Metoprolol Succinate (Toprol Xl) 25 mg 1X ONCE PO Last administered on at 13:51; Start 06/11/18 at 10:00; Stop 06/11/18 at 10:01; Status DC Metoprolol Succinate (Toprol Xl) 25 mg DAILY PO ; Start 06/12/18 at 09:00 Atorvastatin Calcium (Lipitor) 40 mg QHS PO ; Start 06/11/18 at 21:00 Potassium Chloride (Klor-Con) 40 meq 1X ONCE PO Last administered on at 13:51; Start 06/11/18 at 13:00; Stop 06/11/18 at 13:01; Status DC Magnesium Sulfate 50 ml @ 25 mls/hr 1X ONCE IV Last administered on at 12:38; Start 06/11/18 at 13:00; Stop 06/11/18 at 14:59; Status DC Acetaminophen (Tylenol) 650 mg PRN Q4HRS PRN PEG MILD PAIN / TEMP; Start 06/11 at 15:45; Stop 06/11/18 at 15:57; Status DC Insulin Human Lispro (HumaLOG) 0-5 UNITS TIDWMEALS SQ ; Start 06/11/18 at 17:00 Dextrose (Dextrose 50%-Water Syringe) 12.5 gm PRN Q15MIN PRN IV SEE COMMENTS; Start 06/11/18 at 16:00 Temazepam (Restoril) 7.5 mg PRN QHS PRN PO INSOMNIA; Start 06/11/18 at 19:30; Status UNV Active Scripts Active Reported [estrodim] BID [pectacol] 6 Tab DAILY Green Tea Extract (Green Tea [place] Extract) 250 Mg Capsule 350 Mg PO BID Glucosamine (Glucosamine Sulfate 2KCL) 1,000 Mg Tablet 2,000 Mg PO DAILY [berberine/grape seed] DAILY [D ribose] Unknown Dose Fish Oil 1,000 mg Softgel (Naselle-3S/Dha/Epa/Fish Oil) 1 Each Capsule 1 Each PO DAILY Vitamin E (Vitamin E Mixed) 400 Unit Capsule 400 Unit PO DAILY Percocet 5-325 Mg Tablet (Oxycodone/Acetaminophen) 1 Each Tablet 1-2 Tab PO Q4HRS PRN Vitamin C (Ascorbic Acid) 500 Mg Tablet 500 Mg PO DAILY Vitamin D3 (Cholecalciferol (Vitamin D3)) 5,000 Unit Tablet 1 Tab PO DAILY Calcium (Calcium Carbonate) 500 Mg Tab.chew 600 Mg PO DAILY Niaspan (Niacin) 500 Mg Tab.er.24h 1 Tab PO DAILY B Complex (Vitamin B Complex) 1 Each Tablet 1 Each PO DAILY Dhea (Prasterone (Dhea)) 50 Mg Capsule 75 Mg PO DAILY Aspir 81 (Aspirin) 81 Mg Tablet.dr 1 Tab PO HS Magnesium (Magnesium Oxide) 400 Mg Capsule 1 Cap PO BID Amiodarone Hcl 200 Mg Tablet 100 Mg PO QODAY Klor-Con M20 (Potassium Chloride) 20 Meq Tab.er.prt DAILYWBKFT Metoprolol Succinate ( Xl ) (Metoprolol Succinate) 200 Mg Tab.er.24h 100 DAILY Synthroid (Levothyroxine Sodium) 125 Mcg Tablet 125 DAILY Amiodarone Hcl 200 Mg Tablet 200 QODAY Vitals/I & O Vital Sign - Last 24 Hours 06/10/18 06/10/18 06/10/18 06/10/18 20:00 20:00 20:05 21:00 Temp 98.4 98.4 Pulse 80 80 Resp 16 16 B/P (MAP) 117/73 (88) 114/68 (83) Pulse Ox 100 100 100 O2 Delivery Mechanical Ventilator Ventilator Ventilator Ventilator 06/10/18 06/10/18 06/10/18 06/11/18 22:00 23:00 23:46 00:00 Pulse 80 80 Resp 16 16 B/P (MAP) 117/70 (86) 115/70 (85) Pulse Ox 100 99 99 O2 Delivery Ventilator Ventilator Ventilator Mechanical Ventilator 06/11/18 06/11/18 06/11/18 06/11/18 00:00 01:00 02:00 02:22 Temp 98.6 98.6 Pulse 80 80 80 Resp 16 16 16 B/P (MAP) 105/67 (80) 120/67 (84) 83/51 (62) Pulse Ox 99 98 98 99 O2 Delivery Ventilator Ventilator Ventilator Ventilator 06/11/18 06/11/18 06/11/18 06/11/18 03:00 04:00 04:00 04:00 Temp 98.1 98.1 Pulse 80 80 Resp 16 16 B/P (MAP) 95/56 (69) 87/54 (65) Pulse Ox 98 99 98 O2 Delivery Ventilator Ventilator Mechanical Ventilator Ventilator 06/11/18 06/11/18 06/11/18 06/11/18 05:00 05:50 06:00 07:00 Temp 99.5 99.5 Pulse 80 80 86 Resp 16 16 16 B/P (MAP) 91/51 (64) 92/55 (67) 107/61 (76) Pulse Ox 97 99 98 98 O2 Delivery Ventilator Ventilator Ventilator Ventilator 06/11/18 06/11/18 06/11/18 06/11/18 07:58 08:00 08:35 09:00 Pulse 82 86 Resp 16 16 B/P (MAP) 94/53 (67) 86/53 (64) Pulse Ox 99 99 99 O2 Delivery Mechanical Ventilator Ventilator Ventilator Ventilator 06/11/18 06/11/18 06/11/18 06/11/18 10:00 11:00 12:00 12:00 Temp 98.6 98.6 Pulse 80 80 80 Resp 16 16 16 B/P (MAP) 96/59 (71) 140/68 (92) 136/77 (96) Pulse Ox 99 98 99 O2 Delivery Ventilator Nasal Cannula Ventilator Mechanical Ventilator O2 Flow Rate 4.0 06/11/18 06/11/18 06/11/18 06/11/18 13:00 13:51 14:00 15:00 Temp 98.6 98.6 Pulse 80 80 80 80 Resp 16 16 16 B/P (MAP) 134/77 (96) 134/77 132/76 (94) 137/78 (97) Pulse Ox 99 99 99 O2 Delivery Ventilator Ventilator Ventilator 06/11/18 06/11/18 06/11/18 06/11/18 16:00 16:00 17:00 18:00 Pulse 80 80 80 Resp 16 16 16 B/P (MAP) 137/70 (92) 134/70 (91) 140/72 (94) Pulse Ox 98 98 99 O2 Delivery Room Air Room Air Room Air Room Air Intake and Output 06/10/18 06/10/18 06/11/18 15:00 23:00 07:00 Intake Total 200 ml 723.8 ml Output Total 950 ml 450 ml 275 ml Balance -950 ml -250 ml 448.8 ml DALIA TREVIÑO MD Jun 11, 2018 19:33
[2018-06-11] MEDS: ATORVASTATIN CALCIUM 40 MG TABLET. PO SCH (20:54)
[2018-06-11] MEDS: TEMAZEPAM 7.5 MG CAPSULE PO PRN (20:54)
[2018-06-12] VITALS (15 sets, daily range): BP systolic 123–170; BP diastolic 55–91
[2018-06-12 03:51] LABS: HEMATOCRIT 33.5 % (39.0-53.0); HEMOGLOBIN 11.8 g/dL (13.0-17.5); RED BLOOD COUNT 3.39 x10^6/uL (4.30-5.70); RED CELL DISTRIBUTION WIDTH 12.5 % (11.5-14.5); WHITE BLOOD COUNT 9.1 x10^3/uL (4.0-11.0)
[2018-06-12 04:22] LABS: CALCIUM 8.2 mg/dL (8.5-10.1); GFR 72.5; MAGNESIUM 2.1 mg/dL (1.8-2.4); POTASSIUM 3.5 mmol/L (3.5-5.1)
[2018-06-12] MEDS: AMIODARONE 450 MG in IV DEXTROSE 5% 250 ML IV PRN (05:53)
--- NOTE | 2018-06-12 06:27 | PDOC ---
PULMONARY PROGRESS NOTES Subjective no sob, no cp, has occ cough. on amio, on home cpap Vitals Vital Signs Date Time Temp Pulse Resp B/P (MAP) Pulse Ox O2 Delivery O2 Flow Rate FiO2 06/12/18 06:00 80 22 128/68 (88) 96 Room Air 06/12/18 04:00 98.3 98.3 06/11/18 11:00 4.0 Comments ros as mentioned as above other sys otherwise neg ROS: No Nausea General: Alert HEENT: Other (nc at perrl nose throat clear neck no lad, no thyromegaly) Lungs: Crackles Cardiovascular: S1, S2 Abdomen: Soft, Non-tender Neuro Exam: Alert Extremities: No Edema Skin: Warm Labs Laboratory Tests Test 06/10/18 09:20 06/10/18 11:05 06/10/18 14:59 06/10/18 15:45 Nasal Screen MRSA (PCR) Negative (Negative) White Blood Count 5.2 x10^3/uL (4.0-11.0) Red Blood Count 3.75 x10^6/uL (4.30-5.70) Hemoglobin 13.0 g/dL (13.0-17.5) Hematocrit 37.2 % (39.0-53.0) Mean Corpuscular Volume 99 fL (79-100) Mean Corpuscular Hemoglobin 35 pg (25-35) Mean Corpuscular Hemoglobin Concent 35 g/dL (31-37) Red Cell Distribution Width 12.5 % (11.5-14.5) Platelet Count 190 x10^3/uL (140-400) Sodium Level 136 mmol/L (136-145) Potassium Level 4.4 mmol/L (3.5-5.1) Chloride Level 105 mmol/L (98-107) Carbon Dioxide Level 26 mmol/L (21-32) Anion Gap 5 (6-14) Blood Urea Nitrogen 13 mg/dL (8-26) Creatinine 1.0 mg/dL (0.7-1.3) Estimated GFR (Cockcroft-Gault) 72.5 BUN/Creatinine Ratio 13 (6-20) Glucose Level 138 mg/dL (70-99) Calcium Level 8.2 mg/dL (8.5-10.1) Magnesium Level 2.0 mg/dL (1.8-2.4) Total Bilirubin 0.7 mg/dL (0.2-1.0) Aspartate Amino Transf (AST/SGOT) 21 U/L (15-37) Alanine Aminotransferase (ALT/SGPT) 27 U/L (16-63) Alkaline Phosphatase 59 U/L (46-116) Total Protein 6.2 g/dL (6.4-8.2) Albumin 3.3 g/dL (3.4-5.0) Albumin/Globulin Ratio 1.1 (1.0-1.7) Glucose (Fingerstick) 110 mg/dL (70-99) O2 Saturation 98 % (92-99) Arterial Blood pH 7.45 (7.35-7.45) Arterial Blood pCO2 at Patient Temp 28 mmHg (35-46) Arterial Blood pO2 at Patient Temp 144 mmHg (65-108) Arterial Blood HCO3 19 mmol/L (21-28) Arterial Blood Base Excess -4 mmol/L (-3-3) FiO2 50 Test 06/10/18 16:45 06/11/18 00:09 06/11/18 06:51 06/11/18 08:35 Glucose (Fingerstick) 101 mg/dL (70-99) 80 mg/dL (70-99) 93 mg/dL (70-99) O2 Saturation 98 % (92-99) Arterial Blood pH 7.44 (7.35-7.45) Arterial Blood pCO2 at Patient Temp 30 mmHg (35-46) Arterial Blood pO2 at Patient Temp 108 mmHg (65-108) Arterial Blood HCO3 20 mmol/L (21-28) Arterial Blood Base Excess -3 mmol/L (-3-3) FiO2 40 Test 06/11/18 11:25 06/11/18 12:27 06/11/18 17:31 06/12/18 02:30 Sodium Level 139 mmol/L (136-145) 144 mmol/L (136-145) Potassium Level 3.8 mmol/L (3.5-5.1) 3.5 mmol/L (3.5-5.1) Chloride Level 105 mmol/L (98-107) 108 mmol/L (98-107) Carbon Dioxide Level 24 mmol/L (21-32) 26 mmol/L (21-32) Anion Gap 10 (6-14) 10 (6-14) Blood Urea Nitrogen 10 mg/dL (8-26) 9 mg/dL (8-26) Creatinine 1.0 mg/dL (0.7-1.3) 1.0 mg/dL (0.7-1.3) Estimated GFR (Cockcroft-Gault) 72.5 72.5 Glucose Level 110 mg/dL (70-99) 128 mg/dL (70-99) Calcium Level 8.0 mg/dL (8.5-10.1) 8.2 mg/dL (8.5-10.1) Magnesium Level 2.0 mg/dL (1.8-2.4) 2.1 mg/dL (1.8-2.4) Glucose (Fingerstick) 97 mg/dL (70-99) 142 mg/dL (70-99) Test 06/12/18 03:00 White Blood Count 9.1 x10^3/uL (4.0-11.0) Red Blood Count 3.39 x10^6/uL (4.30-5.70) Hemoglobin 11.8 g/dL (13.0-17.5) Hematocrit 33.5 % (39.0-53.0) Mean Corpuscular Volume 99 fL (79-100) Mean Corpuscular Hemoglobin 35 pg (25-35) Mean Corpuscular Hemoglobin Concent 35 g/dL (31-37) Red Cell Distribution Width 12.5 % (11.5-14.5) Platelet Count 185 x10^3/uL (140-400) Laboratory Tests Test 06/11/18 06:51 06/11/18 08:35 06/11/18 11:25 06/11/18 12:27 Glucose (Fingerstick) 93 mg/dL (70-99) 97 mg/dL (70-99) O2 Saturation 98 % (92-99) Arterial Blood pH 7.44 (7.35-7.45) Arterial Blood pCO2 at Patient Temp 30 mmHg (35-46) Arterial Blood pO2 at Patient Temp 108 mmHg (65-108) Arterial Blood HCO3 20 mmol/L (21-28) Arterial Blood Base Excess -3 mmol/L (-3-3) FiO2 40 Sodium Level 139 mmol/L (136-145) Potassium Level 3.8 mmol/L (3.5-5.1) Chloride Level 105 mmol/L (98-107) Carbon Dioxide Level 24 mmol/L (21-32) Anion Gap 10 (6-14) Blood Urea Nitrogen 10 mg/dL (8-26) Creatinine 1.0 mg/dL (0.7-1.3) Estimated GFR (Cockcroft-Gault) 72.5 Glucose Level 110 mg/dL (70-99) Calcium Level 8.0 mg/dL (8.5-10.1) Magnesium Level 2.0 mg/dL (1.8-2.4) Test 06/11/18 17:31 06/12/18 02:30 06/12/18 03:00 Glucose (Fingerstick) 142 mg/dL (70-99) Sodium Level 144 mmol/L (136-145) Potassium Level 3.5 mmol/L (3.5-5.1) Chloride Level 108 mmol/L (98-107) Carbon Dioxide Level 26 mmol/L (21-32) Anion Gap 10 (6-14) Blood Urea Nitrogen 9 mg/dL (8-26) Creatinine 1.0 mg/dL (0.7-1.3) Estimated GFR (Cockcroft-Gault) 72.5 Glucose Level 128 mg/dL (70-99) Calcium Level 8.2 mg/dL (8.5-10.1) Magnesium Level 2.1 mg/dL (1.8-2.4) White Blood Count 9.1 x10^3/uL (4.0-11.0) Red Blood Count 3.39 x10^6/uL (4.30-5.70) Hemoglobin 11.8 g/dL (13.0-17.5) Hematocrit 33.5 % (39.0-53.0) Mean Corpuscular Volume 99 fL (79-100) Mean Corpuscular Hemoglobin 35 pg (25-35) Mean Corpuscular Hemoglobin Concent 35 g/dL (31-37) Red Cell Distribution Width 12.5 % (11.5-14.5) Platelet Count 185 x10^3/uL (140-400) Medications Active Scripts Medications Dose Route/Sig Max Daily Dose Days Date Category [estrodim] BID 02/03/18 Reported [pectacol] 6 Tab DAILY 02/03/18 Reported Green Tea Extract (Green Tea [place] Extract) 250 Mg Capsule 350 Mg PO BID 02/03/18 Reported Glucosamine (Glucosamine Sulfate 2KCL) 1,000 Mg Tablet 2,000 Mg PO DAILY 02/03/18 Reported [berberine/grape seed] DAILY 02/03/18 Reported [D ribose] Unknown Dose 02/03/18 Reported Fish Oil 1,000 mg Softgel ([place]-3S/Dha/Epa/Fish Oil) 1 Each Capsule 1 Each PO DAILY 02/03/18 Reported Vitamin E (Vitamin E Mixed) 400 Unit Capsule 400 Unit PO DAILY 02/03/18 Reported Percocet 5-325 Mg Tablet (Oxycodone/Acetaminophen) 1 Each Tablet 1-2 Tab PO Q4HRS PRN 07/29/17 Reported Vitamin C (Ascorbic Acid) 500 Mg Tablet 500 Mg PO DAILY 07/27/17 Reported Vitamin D3 (Cholecalciferol (Vitamin D3)) 5,000 Unit Tablet 1 Tab PO DAILY 07/27/17 Reported Calcium (Calcium Carbonate) 500 Mg Tab.chew 600 Mg PO DAILY 07/27/17 Reported Niaspan (Niacin) 500 Mg Tab.er.24h 1 Tab PO DAILY 07/27/17 Reported B Complex (Vitamin B Complex) 1 Each Tablet 1 Each PO DAILY 07/27/17 Reported Dhea (Prasterone (Dhea)) 50 Mg Capsule 75 Mg PO DAILY 07/27/17 Reported Aspir 81 (Aspirin) 81 Mg Tablet.dr 1 Tab PO HS 07/27/17 Reported Magnesium (Magnesium Oxide) 400 Mg Capsule 1 Cap PO BID 07/27/17 Reported Amiodarone Hcl 200 Mg Tablet 100 Mg PO QODAY 07/27/17 Reported Klor-Con M20 (Potassium Chloride) 20 Meq Tab.er.prt DAILYWBKFT 07/27/17 Reported Metoprolol Succinate ( Xl ) (Metoprolol Succinate) 200 Mg Tab.er.24h 100 DAILY 07/27/17 Reported Synthroid (Levothyroxine Sodium) 125 Mcg Tablet 125 DAILY 07/27/17 Reported Amiodarone Hcl 200 Mg Tablet 200 QODAY 07/27/17 Reported Comments cxr reviewed Impression . IMPRESSION: 1. Acute respiratory failure, status post recurrent ventricular tachycardia, status post resuscitation in the Emergency Room. 2. Emergent cardiac catheterization revealing stenosis of the LAD, status post PCI. 3. Mixed ischemic and nonischemic cardiomyopathy. 4. KENY Plan . PLAN: 1. o2 titration 2. Continue current support. 3. Follow Cardiology input. 4. use cpap during sleep discussed w rn, pt ROSEMARY SMITH MD Jun 12, 2018 06:27
[2018-06-12] MEDS: INSULIN LISPRO 300 UNITS/3 ML INSULN.PEN. SQ SCH ×3 (08:00→17:00)
[2018-06-12] MEDS: FAMOTIDINE 20 MG/2 ML VIAL IVP SCH ×2 (08:27→20:01)
[2018-06-12] MEDS: IV NORMAL SALINE 1000ML BAG 1,000 ML IV SCH (08:27)
[2018-06-12] MEDS: TICAGRELOR 90 MG TABLET. PO SCH ×2 (08:28→20:01)
[2018-06-12] MEDS: METOPROLOL SUCC 24HR ER 25 MG TAB.ER.24H. PO SCH (08:28)
[2018-06-12] MEDS: ASPIRIN CHEWABLE 81 MG TABLET. PO SCH (08:28)
[2018-06-12] MEDS: AMIODARONE HCL 200 MG TABLET. PO SCH ×2 (09:56→20:02)
[2018-06-12] MEDS ORDERED: LORazepam 0.5 MG TABLET PO ONE (11:00)
--- NOTE | 2018-06-12 12:10 | PDOC ---
CARDIOLOGY PROGRESS NOTE SUBJECTIVE: No new events overnight. Denies any chest pain Anxiety about future ICD shocks. OBJECTIVE: Vital SIgns: Vital Signs Date Time Temp Pulse Resp B/P (MAP) Pulse Ox O2 Delivery O2 Flow Rate FiO2 06/12/18 11:00 79 20 170/91 (117) 97 Room Air 06/12/18 07:00 98.2 98.2 06/11/18 11:00 4.0 I & O Intake and Output 06/12/18 07:00 Intake Total 1974 ml Output Total 2770 ml Balance -796 ml Intake Oral 420 ml IV Total 1454 ml Other 100 ml Output Urine Total 2770 ml Objective: a/o x 3. NAD CVS; RRR, no m/r/g. PULM: CTAB ABD: Soft, NT/ND +BS EXT: No edema. CURRENT MEDICATIONS: Amiodarone 400mg bid TOprol XL ASA Ticagrelor 90mg bid DIAGNOSTIC TESTING: K 3.5, Mg 2.1 ASSESSMENT: 1. VT storm 2. 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 HTN PLAN: 1. Continue current medical therapy with Amiodarone, Toprol XL and asa/ ticagrelor 2. Continue statin therapy. 3. Will change pacing rate 60 baseline 4. Reassess PVC burden. Will discuss with primary EP regarding additional agents to his regimen. JORGE LUIS FLORES MD Jun 12, 2018 12:10
[2018-06-12] MEDS ORDERED: amLODIPine BESYLATE 5 MG TABLET PO ONE (12:15)
[2018-06-12] MEDS ORDERED: POTASSIUM CHLORIDE 20 MEQ TABLET.ER. PO ONE (12:30)
[2018-06-12] MEDS ORDERED: LORazepam 0.5 MG TABLET PO PRN (14:45)
--- NOTE | 2018-06-12 19:51 | PDOC ---
PROGRESS NOTES History of Present Illness History of Present Illness Plan: Pt awake and oob --> chair and family at bedside No further shocks since LAD stenting Will c/t monitor Cardiac meds per cards team Poss dc on Thursday or per Cards ativan for anxiety related to shocks Tx to 2nd floor Consults: Cards Pending Issues: titrate meds ensure no more Defib shocks Vitals Vitals Vital Signs Date Time Temp Pulse Resp B/P (MAP) Pulse Ox O2 Delivery O2 Flow Rate FiO2 06/12/18 19:43 98.4 61 19 137/61 (86) 95 Room Air 98.4 06/11/18 11:00 4.0 Physical Exam Lungs: Crackles Labs LABS Laboratory Tests Test 06/12/18 02:30 06/12/18 03:00 06/12/18 10:45 06/12/18 12:13 Sodium Level 144 mmol/L (136-145) Potassium Level 3.5 mmol/L (3.5-5.1) Chloride Level 108 mmol/L (98-107) Carbon Dioxide Level 26 mmol/L (21-32) Anion Gap 10 (6-14) Blood Urea Nitrogen 9 mg/dL (8-26) Creatinine 1.0 mg/dL (0.7-1.3) Estimated GFR (Cockcroft-Gault) 72.5 Glucose Level 128 mg/dL (70-99) Calcium Level 8.2 mg/dL (8.5-10.1) Magnesium Level 2.1 mg/dL (1.8-2.4) White Blood Count 9.1 x10^3/uL (4.0-11.0) Red Blood Count 3.39 x10^6/uL (4.30-5.70) Hemoglobin 11.8 g/dL (13.0-17.5) Hematocrit 33.5 % (39.0-53.0) Mean Corpuscular Volume 99 fL (79-100) Mean Corpuscular Hemoglobin 35 pg (25-35) Mean Corpuscular Hemoglobin Concent 35 g/dL (31-37) Red Cell Distribution Width 12.5 % (11.5-14.5) Platelet Count 185 x10^3/uL (140-400) Glucose (Fingerstick) 167 mg/dL (70-99) 132 mg/dL (70-99) Test 06/12/18 17:31 Glucose (Fingerstick) 143 mg/dL (70-99) Comment Review of Relevant I have reviewed the following items guille (where applicable) has been applied. Labs Laboratory Tests Test 06/11/18 00:09 06/11/18 06:51 06/11/18 08:35 06/11/18 11:25 Glucose (Fingerstick) 80 mg/dL (70-99) 93 mg/dL (70-99) O2 Saturation 98 % (92-99) Arterial Blood pH 7.44 (7.35-7.45) Arterial Blood pCO2 at Patient Temp 30 mmHg (35-46) Arterial Blood pO2 at Patient Temp 108 mmHg (65-108) Arterial Blood HCO3 20 mmol/L (21-28) Arterial Blood Base Excess -3 mmol/L (-3-3) FiO2 40 Sodium Level 139 mmol/L (136-145) Potassium Level 3.8 mmol/L (3.5-5.1) Chloride Level 105 mmol/L (98-107) Carbon Dioxide Level 24 mmol/L (21-32) Anion Gap 10 (6-14) Blood Urea Nitrogen 10 mg/dL (8-26) Creatinine 1.0 mg/dL (0.7-1.3) Estimated GFR (Cockcroft-Gault) 72.5 Glucose Level 110 mg/dL (70-99) Calcium Level 8.0 mg/dL (8.5-10.1) Magnesium Level 2.0 mg/dL (1.8-2.4) Test 06/11/18 12:27 06/11/18 17:31 06/12/18 02:30 06/12/18 03:00 Glucose (Fingerstick) 97 mg/dL (70-99) 142 mg/dL (70-99) Sodium Level 144 mmol/L (136-145) Potassium Level 3.5 mmol/L (3.5-5.1) Chloride Level 108 mmol/L (98-107) Carbon Dioxide Level 26 mmol/L (21-32) Anion Gap 10 (6-14) Blood Urea Nitrogen 9 mg/dL (8-26) Creatinine 1.0 mg/dL (0.7-1.3) Estimated GFR (Cockcroft-Gault) 72.5 Glucose Level 128 mg/dL (70-99) Calcium Level 8.2 mg/dL (8.5-10.1) Magnesium Level 2.1 mg/dL (1.8-2.4) White Blood Count 9.1 x10^3/uL (4.0-11.0) Red Blood Count 3.39 x10^6/uL (4.30-5.70) Hemoglobin 11.8 g/dL (13.0-17.5) Hematocrit 33.5 % (39.0-53.0) Mean Corpuscular Volume 99 fL (79-100) Mean Corpuscular Hemoglobin 35 pg (25-35) Mean Corpuscular Hemoglobin Concent 35 g/dL (31-37) Red Cell Distribution Width 12.5 % (11.5-14.5) Platelet Count 185 x10^3/uL (140-400) Test 06/12/18 10:45 06/12/18 12:13 06/12/18 17:31 Glucose (Fingerstick) 167 mg/dL (70-99) 132 mg/dL (70-99) 143 mg/dL (70-99) Laboratory Tests Test 06/12/18 02:30 06/12/18 03:00 06/12/18 10:45 06/12/18 12:13 Sodium Level 144 mmol/L (136-145) Potassium Level 3.5 mmol/L (3.5-5.1) Chloride Level 108 mmol/L (98-107) Carbon Dioxide Level 26 mmol/L (21-32) Anion Gap 10 (6-14) Blood Urea Nitrogen 9 mg/dL (8-26) Creatinine 1.0 mg/dL (0.7-1.3) Estimated GFR (Cockcroft-Gault) 72.5 Glucose Level 128 mg/dL (70-99) Calcium Level 8.2 mg/dL (8.5-10.1) Magnesium Level 2.1 mg/dL (1.8-2.4) White Blood Count 9.1 x10^3/uL (4.0-11.0) Red Blood Count 3.39 x10^6/uL (4.30-5.70) Hemoglobin 11.8 g/dL (13.0-17.5) Hematocrit 33.5 % (39.0-53.0) Mean Corpuscular Volume 99 fL (79-100) Mean Corpuscular Hemoglobin 35 pg (25-35) Mean Corpuscular Hemoglobin Concent 35 g/dL (31-37) Red Cell Distribution Width 12.5 % (11.5-14.5) Platelet Count 185 x10^3/uL (140-400) Glucose (Fingerstick) 167 mg/dL (70-99) 132 mg/dL (70-99) Test 06/12/18 17:31 Glucose (Fingerstick) 143 mg/dL (70-99) Medications Current Medications Lidocaine HCl/ Dextrose 500 ml @ 0 mls/hr CONT PRN IV SEE I/O RECORD; Start at 10:15; Stop 06/10/18 at 10:17; Status DC Lidocaine HCl (Lidocaine HCl 2% Abboject) 80 mg 1X ONCE IV ; Start 06/10/18 at 10:15; Stop 06/10/18 at 10:17; Status DC Esmolol HCl 250 ml @ 0 mls/hr CONT PRN IV SEE I/O RECORD Last administered on 06/10/18at 11:07; Start 06/10/18 at 10:15 Fentanyl Citrate (Fentanyl 2ml Vial) 50 mcg 1X ONCE IV Last administered on at 13:58; Start 06/10/18 at 11:30; Stop 06/10/18 at 11:31; Status DC Midazolam HCl (Versed) 2 mg 1X ONCE IV ; Start 06/10/18 at 11:30; Stop at 11:31; Status DC Procainamide HCl 2000 mg/Dextrose 520 ml @ 15.6 mls/hr CONT PRN IV SEE I/O RECORD Last administered on 06/10/18at 11:36; Start 06/10/18 at 11:30 Midazolam HCl (Versed) 5 mg STK-MED ONCE .ROUTE ; Start 06/10/18 at 11:20; Stop 06/10/18 at 11:21; Status DC Propofol 100 ml @ As Directed STK-MED ONCE IV ; Start 06/10/18 at 11:53; Stop 06/10/18 at 11:54; Status DC Magnesium Sulfate/ Dextrose 100 ml @ 100 mls/hr 1X ONCE IV Last administered on 06/10/18at 13:58; Start 06/10/18 at 12:30; Stop 06/10/18 at 13:29; Status DC Midazolam HCl (Versed) 2 mg STK-MED ONCE .ROUTE ; Start 06/10/18 at 12:32; Stop 06/10/18 at 12:34; Status DC Heparin Sodium (Porcine) (Heparin Sodium) 10,000 unit STK-MED ONCE .ROUTE ; Start 06/10/18 at 12:51; Stop 06/10/18 at 12:52; Status DC Iodixanol (Visipaque 320) 100 ml STK-MED ONCE .ROUTE ; Start 06/10/18 at 13:08 ; Stop 06/10/18 at 13:09; Status DC Tirofiban/Sodium Chloride 100 ml @ As Directed STK-MED ONCE IV ; Start at 13:09; Stop 06/10/18 at 13:10; Status DC Midazolam HCl (Versed) 2 mg STK-MED ONCE .ROUTE ; Start 06/10/18 at 13:18; Stop 06/10/18 at 13:19; Status DC Nitroglycerin (Nitroglycerin) 200 mcg 1X ONCE ICAR Last administered on at 13:30; Start 06/10/18 at 13:30; Stop 06/10/18 at 13:41; Status DC Heparin Sodium/ Sodium Chloride (HEPARIN for ARTERIAL LINE FLUSH) 1,000 unit 1X ONCE IART Last administered on 06/10/18at 13:30; Start 06/10/18 at 13:30; Stop 06/10/18 at 13:41; Status DC Heparin Sodium/ Sodium Chloride (HEPARIN for ARTERIAL LINE FLUSH) 1,000 unit 1X ONCE IART Last administered on 06/10/18at 13:30; Start 06/10/18 at 13:30; Stop 06/10/18 at 13:41; Status DC Midazolam HCl (Versed) 4 mg 1X ONCE IV Last administered on 06/10/18at 13:30; Start 06/10/18 at 13:30; Stop 06/10/18 at 13:41; Status DC Iodixanol (Visipaque 320) 209 ml 1X ONCE IART Last administered on 06/10/18at 13:30; Start 06/10/18 at 13:30; Stop 06/10/18 at 13:41; Status DC Ticagrelor (Brilinta) 180 mg 1X ONCE PO Last administered on 06/10/18at 14:23 ; Start 06/10/18 at 13:30; Stop 06/10/18 at 13:41; Status DC Aspirin (Raj Aspirin) 325 mg 1X ONCE PO Last administered on 06/10/18at 14: 23; Start 06/10/18 at 13:30; Stop 06/10/18 at 13:41; Status DC Heparin Sodium (Porcine) (Heparin Sodium) 7,000 unit 1X ONCE IV Last administered on 06/10/18at 13:30; Start 06/10/18 at 13:30; Stop 06/10/18 at 13 :41; Status DC Tirofiban/Sodium Chloride 100 ml @ 0 mls/hr CONT PRN IV PER PROTOCOL Last administered on 06/10/18at 16:50; Start 06/10/18 at 13:30; Stop 06/10/18 at 19 :30; Status DC Lidocaine HCl (Xylocaine 1% Pf 30ml Vial) 18 ml 1X ONCE INJ Last administered on 06/10/18at 13:30; Start 06/10/18 at 13:30; Stop 06/10/18 at 13:41; Status DC Sodium Chloride 1,000 ml @ 75 mls/hr [id number] IV Last administered on at 08:27; Start 06/10/18 at 14:00; Stop 06/12/18 at 12:52; Status DC Insulin Human Lispro (HumaLOG) 0-5 UNITS Q6HRS SQ ; Start 06/10/18 at 14:30; Stop 06/11/18 at 15:57; Status DC Dextrose (Dextrose 50%-Water Syringe) 12.5 gm PRN Q15MIN PRN IV SEE COMMENTS; Start 06/10/18 at 14:15; Stop 06/11/18 at 15:57; Status DC Fentanyl Citrate (Fentanyl 2ml Vial) 50 mcg PRN Q1HR PRN IV SEE COMMENTS; Start 06/10/18 at 14:15 Midazolam HCl 100 ml @ 0 mls/hr CONT PRN IV SEE PROTOCOL Last administered on 06/10/18at 14:58; Start 06/10/18 at 14:15; Stop 06/11/18 at 15:57; Status DC Propofol 100 ml @ As Directed STK-MED ONCE IV ; Start 06/10/18 at 14:46; Stop 06/10/18 at 14:47; Status DC Famotidine (Pepcid Vial) 20 mg BID IVP Last administered on 06/12/18at 08:27; Start 06/10/18 at 21:00 Sodium Bicarbonate (Sodium Bicarb Adult 8.4% Syr) 50 meq 1X ONCE IV Last administered on 06/10/18at 16:50; Start 06/10/18 at 16:30; Stop 06/10/18 at 16 :31; Status DC Propofol 100 ml @ 0 mls/hr CONT PRN IV SEE I/O RECORD Last administered on at 09:12; Start 06/10/18 at 21:15; Stop 06/11/18 at 15:57; Status DC Rocuronium [place] (Zemuron) 50 mg STK-MED ONCE .ROUTE ; Start 06/10/18 at 12: 00; Stop 06/11/18 at 07:23; Status DC Etomidate (Amidate) 20 mg STK-MED ONCE IV ; Start 06/10/18 at 12:00; Stop at 07:23; Status DC Aspirin (Children'S Aspirin) 81 mg 1X ONCE PO Last administered on 06/11/18at 09:14; Start 06/11/18 at 08:45; Stop 06/11/18 at 08:46; Status DC Aspirin (Children'S Aspirin) 81 mg DAILYWBKFT PO Last administered on at 08:28; Start 06/12/18 at 08:00 Ticagrelor (Brilinta) 90 mg BID PO Last administered on 06/12/18at 08:28; Start 06/11/18 at 09:00 Amiodarone HCl 450 mg/Dextrose 259 ml @ 17.26 mls/ hr CONT PRN IV SEE I/O RECORD Last administered on 06/12/18at 05:53; Start 06/11/18 at 09:45 Metoprolol Succinate (Toprol Xl) 25 mg 1X ONCE PO Last administered on at 13:51; Start 06/11/18 at 10:00; Stop 06/11/18 at 10:01; Status DC Metoprolol Succinate (Toprol Xl) 25 mg DAILY PO Last administered on at 08:28; Start 06/12/18 at 09:00 Atorvastatin Calcium (Lipitor) 40 mg QHS PO Last administered on 06/11/18at 20: 54; Start 06/11/18 at 21:00 Potassium Chloride (Klor-Con) 40 meq 1X ONCE PO Last administered on at 13:51; Start 06/11/18 at 13:00; Stop 06/11/18 at 13:01; Status DC Magnesium Sulfate 50 ml @ 25 mls/hr 1X ONCE IV Last administered on at 12:38; Start 06/11/18 at 13:00; Stop 06/11/18 at 14:59; Status DC Acetaminophen (Tylenol) 650 mg PRN Q4HRS PRN PEG MILD PAIN / TEMP; Start 06/11 at 15:45; Stop 06/11/18 at 15:57; Status DC Insulin Human Lispro (HumaLOG) 0-5 UNITS TIDWMEALS SQ ; Start 06/11/18 at 17:00 Dextrose (Dextrose 50%-Water Syringe) 12.5 gm PRN Q15MIN PRN IV SEE COMMENTS; Start 06/11/18 at 16:00 Temazepam (Restoril) 7.5 mg PRN QHS PRN PO INSOMNIA Last administered on at 20:54; Start 06/11/18 at 19:30 Amiodarone HCl (Cordarone) 400 mg BID PO Last administered on 06/12/18at 09:56 ; Start 06/12/18 at 10:00 Lorazepam (Ativan) 0.5 mg 1X ONCE PO Last administered on 06/12/18at 10:51; Start 06/12/18 at 11:00; Stop 06/12/18 at 11:01; Status DC Potassium Chloride (Klor-Con) 80 meq 1X ONCE PO Last administered on at 12:26; Start 06/12/18 at 12:30; Stop 06/12/18 at 12:31; Status DC Amlodipine Besylate (Norvasc) 5 mg 1X ONCE PO Last administered on 06/12/18at 12:26; Start 06/12/18 at 12:15; Stop 06/12/18 at 12:16; Status DC Amlodipine Besylate (Norvasc) 5 mg DAILY PO ; Start 06/13/18 at 09:00 Lorazepam (Ativan) 0.5 mg PRN Q8HRS PRN PO ANXIETY / AGITATION; Start at 14:45 Active Scripts Active Reported [estrodim] BID [pectacol] 6 Tab DAILY Green Tea Extract (Green Tea [place] Extract) 250 Mg Capsule 350 Mg PO BID Glucosamine (Glucosamine Sulfate 2KCL) 1,000 Mg Tablet 2,000 Mg PO DAILY [berberine/grape seed] DAILY [D ribose] Unknown Dose Fish Oil 1,000 mg Softgel ([place]-3S/Dha/Epa/Fish Oil) 1 Each Capsule 1 Each PO DAILY Vitamin E (Vitamin E Mixed) 400 Unit Capsule 400 Unit PO DAILY Percocet 5-325 Mg Tablet (Oxycodone/Acetaminophen) 1 Each Tablet 1-2 Tab PO Q4HRS PRN Vitamin C (Ascorbic Acid) 500 Mg Tablet 500 Mg PO DAILY Vitamin D3 (Cholecalciferol (Vitamin D3)) 5,000 Unit Tablet 1 Tab PO DAILY Calcium (Calcium Carbonate) 500 Mg Tab.chew 600 Mg PO DAILY Niaspan (Niacin) 500 Mg Tab.er.24h 1 Tab PO DAILY B Complex (Vitamin B Complex) 1 Each Tablet 1 Each PO DAILY Dhea (Prasterone (Dhea)) 50 Mg Capsule 75 Mg PO DAILY Aspir 81 (Aspirin) 81 Mg Tablet.dr 1 Tab PO HS Magnesium (Magnesium Oxide) 400 Mg Capsule 1 Cap PO BID Amiodarone Hcl 200 Mg Tablet 100 Mg PO QODAY Klor-Con M20 (Potassium Chloride) 20 Meq Tab.er.prt DAILYWBKFT Metoprolol Succinate ( Xl ) (Metoprolol Succinate) 200 Mg Tab.er.24h 100 DAILY Synthroid (Levothyroxine Sodium) 125 Mcg Tablet 125 DAILY Amiodarone Hcl 200 Mg Tablet 200 QODAY Vitals/I & O Vital Sign - Last 24 Hours 06/11/18 06/11/18 06/11/18 06/11/18 20:00 20:00 21:00 22:00 Temp 98.1 98.1 Pulse 80 80 80 Resp 24 17 22 B/P (MAP) 147/68 (94) 145/74 (97) 116/74 (88) Pulse Ox 96 97 97 O2 Delivery Room Air Room Air Room Air Room Air 06/11/18 06/12/18 06/12/18 06/12/18 23:00 00:00 00:00 01:00 Pulse 80 80 80 Resp 17 22 18 B/P (MAP) 142/71 (94) 145/85 (105) 124/56 (78) Pulse Ox 97 97 96 O2 Delivery Room Air Room Air Room Air Room Air 06/12/18 06/12/18 06/12/18 06/12/18 02:00 03:00 04:00 04:00 Temp 98.3 98.3 Pulse 80 80 80 Resp 20 19 19 B/P (MAP) 123/55 (77) 128/58 (81) 131/63 (85) Pulse Ox 96 95 96 O2 Delivery Room Air Room Air Room Air Room Air 06/12/18 06/12/18 06/12/18 06/12/18 05:00 06:00 07:00 08:00 Temp 98.2 98.2 Pulse 80 80 79 81 Resp 19 22 14 18 B/P (MAP) 142/61 (88) 128/68 (88) 159/74 (102) 150/74 (99) Pulse Ox 96 96 96 96 O2 Delivery Room Air Room Air Room Air Room Air 06/12/18 06/12/18 06/12/18 06/12/18 08:00 08:28 09:00 09:56 Pulse 79 81 83 Resp 22 B/P (MAP) 150/74 127/67 (87) 127/67 Pulse Ox 97 O2 Delivery Room Air Room Air 06/12/18 06/12/18 06/12/18 06/12/18 10:00 11:00 12:00 12:00 Temp 98.4 98.4 Pulse 82 79 60 Resp 20 20 20 B/P (MAP) 156/79 (104) 170/91 (117) 143/74 (97) Pulse Ox 98 97 97 O2 Delivery Room Air Room Air Room Air Room Air 06/12/18 06/12/18 06/12/18 12:26 17:19 19:43 Temp 97.8 98.4 97.8 98.4 Pulse 63 61 Resp 19 B/P (MAP) 155/86 158/85 (109) 137/61 (86) Pulse Ox 95 O2 Delivery Room Air Intake and Output 06/11/18 06/11/18 06/12/18 15:00 23:00 07:00 Intake Total 390 ml 610 ml 974 ml Output Total 970 ml 800 ml 1000 ml Balance -580 ml -190 ml -26 ml DALIA TREVIÑO MD Jun 12, 2018 19:51
[2018-06-12] MEDS: ATORVASTATIN CALCIUM 40 MG TABLET. PO SCH (20:01)
[2018-06-12] MEDS: TEMAZEPAM 7.5 MG CAPSULE PO PRN (20:01)
[2018-06-13 00:27] VITALS: BP 168/78
--- NOTE | 2018-06-13 06:22 | PDOC ---
PULMONARY PROGRESS NOTES Subjective on home cpap, no sob, no cp, has cough. has post nasal drip. has arm pain, iv infiltrated, iv out Vitals Vital Signs Date Time Temp Pulse Resp B/P (MAP) Pulse Ox O2 Delivery O2 Flow Rate FiO2 06/13/18 00:27 97.6 66 19 168/78 (108) 94 Room Air 97.6 Comments ros as mentioned as above other sys otherwise neg ROS: No Nausea General: Alert HEENT: Other (nc at perrl nose throat clear neck no lad, no thyromegaly) Lungs: Crackles Cardiovascular: S1, S2 Abdomen: Soft, Non-tender Neuro Exam: Alert Extremities: No Edema Skin: Warm Labs Laboratory Tests Test 06/11/18 06:51 06/11/18 08:35 06/11/18 11:25 06/11/18 12:27 Glucose (Fingerstick) 93 mg/dL (70-99) 97 mg/dL (70-99) O2 Saturation 98 % (92-99) Arterial Blood pH 7.44 (7.35-7.45) Arterial Blood pCO2 at Patient Temp 30 mmHg (35-46) Arterial Blood pO2 at Patient Temp 108 mmHg (65-108) Arterial Blood HCO3 20 mmol/L (21-28) Arterial Blood Base Excess -3 mmol/L (-3-3) FiO2 40 Sodium Level 139 mmol/L (136-145) Potassium Level 3.8 mmol/L (3.5-5.1) Chloride Level 105 mmol/L (98-107) Carbon Dioxide Level 24 mmol/L (21-32) Anion Gap 10 (6-14) Blood Urea Nitrogen 10 mg/dL (8-26) Creatinine 1.0 mg/dL (0.7-1.3) Estimated GFR (Cockcroft-Gault) 72.5 Glucose Level 110 mg/dL (70-99) Calcium Level 8.0 mg/dL (8.5-10.1) Magnesium Level 2.0 mg/dL (1.8-2.4) Test 06/11/18 17:31 06/12/18 02:30 06/12/18 03:00 06/12/18 10:45 Glucose (Fingerstick) 142 mg/dL (70-99) 167 mg/dL (70-99) Sodium Level 144 mmol/L (136-145) Potassium Level 3.5 mmol/L (3.5-5.1) Chloride Level 108 mmol/L (98-107) Carbon Dioxide Level 26 mmol/L (21-32) Anion Gap 10 (6-14) Blood Urea Nitrogen 9 mg/dL (8-26) Creatinine 1.0 mg/dL (0.7-1.3) Estimated GFR (Cockcroft-Gault) 72.5 Glucose Level 128 mg/dL (70-99) Calcium Level 8.2 mg/dL (8.5-10.1) Magnesium Level 2.1 mg/dL (1.8-2.4) White Blood Count 9.1 x10^3/uL (4.0-11.0) Red Blood Count 3.39 x10^6/uL (4.30-5.70) Hemoglobin 11.8 g/dL (13.0-17.5) Hematocrit 33.5 % (39.0-53.0) Mean Corpuscular Volume 99 fL (79-100) Mean Corpuscular Hemoglobin 35 pg (25-35) Mean Corpuscular Hemoglobin Concent 35 g/dL (31-37) Red Cell Distribution Width 12.5 % (11.5-14.5) Platelet Count 185 x10^3/uL (140-400) Test 06/12/18 12:13 06/12/18 17:31 06/12/18 20:32 Glucose (Fingerstick) 132 mg/dL (70-99) 143 mg/dL (70-99) 154 mg/dL (70-99) Laboratory Tests Test 06/12/18 10:45 06/12/18 12:13 06/12/18 17:31 06/12/18 20:32 Glucose (Fingerstick) 167 mg/dL (70-99) 132 mg/dL (70-99) 143 mg/dL (70-99) 154 mg/dL (70-99) Medications Active Scripts Medications Dose Route/Sig Max Daily Dose Days Date Category [estrodim] BID 02/03/18 Reported [pectacol] 6 Tab DAILY 02/03/18 Reported Green Tea Extract (Green Tea [employer] Extract) 250 Mg Capsule 350 Mg PO BID 02/03/18 Reported Glucosamine (Glucosamine Sulfate 2KCL) 1,000 Mg Tablet 2,000 Mg PO DAILY 02/03/18 Reported [berberine/grape seed] DAILY 02/03/18 Reported [D ribose] Unknown Dose 02/03/18 Reported Fish Oil 1,000 mg Softgel ([place]-3S/Dha/Epa/Fish Oil) 1 Each Capsule 1 Each PO DAILY 02/03/18 Reported Vitamin E (Vitamin E Mixed) 400 Unit Capsule 400 Unit PO DAILY 02/03/18 Reported Percocet 5-325 Mg Tablet (Oxycodone/Acetaminophen) 1 Each Tablet 1-2 Tab PO Q4HRS PRN 07/29/17 Reported Vitamin C (Ascorbic Acid) 500 Mg Tablet 500 Mg PO DAILY 07/27/17 Reported Vitamin D3 (Cholecalciferol (Vitamin D3)) 5,000 Unit Tablet 1 Tab PO DAILY 07/27/17 Reported Calcium (Calcium Carbonate) 500 Mg Tab.chew 600 Mg PO DAILY 07/27/17 Reported Niaspan (Niacin) 500 Mg Tab.er.24h 1 Tab PO DAILY 07/27/17 Reported B Complex (Vitamin B Complex) 1 Each Tablet 1 Each PO DAILY 07/27/17 Reported Dhea (Prasterone (Dhea)) 50 Mg Capsule 75 Mg PO DAILY 07/27/17 Reported Aspir 81 (Aspirin) 81 Mg Tablet.dr 1 Tab PO HS 07/27/17 Reported Magnesium (Magnesium Oxide) 400 Mg Capsule 1 Cap PO BID 07/27/17 Reported Amiodarone Hcl 200 Mg Tablet 100 Mg PO QODAY 07/27/17 Reported Klor-Con M20 (Potassium Chloride) 20 Meq Tab.er.prt DAILYWBKFT 07/27/17 Reported Metoprolol Succinate ( Xl ) (Metoprolol Succinate) 200 Mg Tab.er.24h 100 DAILY 07/27/17 Reported Synthroid (Levothyroxine Sodium) 125 Mcg Tablet 125 DAILY 07/27/17 Reported Amiodarone Hcl 200 Mg Tablet 200 QODAY 07/27/17 Reported Comments cxr reviewed Impression . IMPRESSION: 1. Acute respiratory failure, status post recurrent ventricular tachycardia, status post resuscitation in the Emergency Room. 2. Emergent cardiac catheterization revealing stenosis of the LAD, status post PCI. 3. Mixed ischemic and nonischemic cardiomyopathy. 4. KENY 5. allergic rhinitis Plan . PLAN: 1. o2 titration 2. Continue current support. 3. Follow Cardiology input. 4. use cpap during sleep, keny the importance of tx discussed 5. add flonase. discussed w rn, pt ROSEMARY SMITH MD Jun 13, 2018 06:22
[2018-06-13 07:24] VITALS: BP 124/63
[2018-06-13] MEDS: INSULIN LISPRO 300 UNITS/3 ML INSULN.PEN. SQ SCH ×3 (08:00→17:00)
[2018-06-13] MEDS: AMIODARONE HCL 200 MG TABLET. PO SCH ×2 (08:07→20:35)
[2018-06-13] MEDS: TICAGRELOR 90 MG TABLET. PO SCH ×2 (08:07→20:35)
[2018-06-13] MEDS: ASPIRIN CHEWABLE 81 MG TABLET. PO SCH (08:07)
[2018-06-13] MEDS: METOPROLOL SUCC 24HR ER 25 MG TAB.ER.24H. PO SCH (08:07)
[2018-06-13] MEDS: FAMOTIDINE 20 MG/2 ML VIAL IVP SCH (08:08)
[2018-06-13] MEDS: FLUTICASONE 50MCG/NASAL SPRAY 16GM BOTTLE. NS SCH ×2 (08:08→08:13)
[2018-06-13] MEDS: amLODIPine BESYLATE 5 MG TABLET PO SCH ×2 (08:09→08:12)
--- NOTE | 2018-06-13 10:55 | PDOC ---
CARDIOLOGY PROGRESS NOTE SUBJECTIVE: No new events. OBJECTIVE: Vital SIgns: Vital Signs Date Time Temp Pulse Resp B/P (MAP) Pulse Ox O2 Delivery O2 Flow Rate FiO2 06/13/18 08:15 Room Air 06/13/18 08:12 65 124/63 06/13/18 07:24 98.0 19 97 98.0 I & O Intake and Output 06/13/18 07:00 Intake Total 200 ml Output Total 825 ml Balance -625 ml Intake Oral 200 ml Output Urine Total 825 ml # Voids 2 # Bowel Movements 1 Objective: Normal heart tones. Clear lungs No edema. CURRENT MEDICATIONS: Current Medications Medications (Trade) Dose Ordered Sig/Jl Start Time Stop Time Status Last Admin Dose Admin Acetaminophen (Tylenol) 650 mg PRN Q4HRS PRN 06/11/18 15:45 06/11/18 15:57 DC Amiodarone HCl (Cordarone) 400 mg BID 06/12/18 10:00 06/13/18 08:07 400 MG Amiodarone HCl 450 mg/Dextrose 259 ml @ 17.26 mls/ hr CONT PRN 06/11/18 09:45 06/12/18 05:53 17.26 MLS/HR Amlodipine Besylate (Norvasc) 5 mg DAILY 06/13/18 09:00 Aspirin (Raj Aspirin) 325 mg 1X ONCE 06/10/18 13:30 06/10/18 13:41 DC 06/10/18 14:23 325 MG Aspirin (Children'S Aspirin) 81 mg DAILYWBKFT 06/12/18 08:00 06/13/18 08:07 81 MG Atorvastatin Calcium (Lipitor) 40 mg QHS 06/11/18 21:00 06/12/18 20:01 40 MG Dextrose (Dextrose 50%-Water Syringe) 12.5 gm PRN Q15MIN PRN 06/11/18 16:00 Esmolol HCl 250 ml @ 0 mls/hr CONT PRN 06/10/18 10:15 06/10/18 11:07 29.257 MLS/HR Etomidate (Amidate) 20 mg STK-MED ONCE 06/10/18 12:00 06/11/18 07:23 DC Famotidine (Pepcid Vial) 20 mg BID 06/10/18 21:00 06/13/18 08:08 20 MG Fentanyl Citrate (Fentanyl 2ml Vial) 50 mcg PRN Q1HR PRN 06/10/18 14:15 Fluticasone Propionate (Flonase) 2 spray DAILY 06/13/18 09:00 Heparin Sodium (Porcine) (Heparin Sodium) 7,000 unit 1X ONCE 06/10/18 13:30 06/10/18 13:41 DC 06/10/18 13:30 7,000 UNIT Heparin Sodium/ Sodium Chloride (HEPARIN for ARTERIAL LINE FLUSH) 1,000 unit 1X ONCE 06/10/18 13:30 06/10/18 13:41 DC 06/10/18 13:30 1,000 UNIT Insulin Human Lispro (HumaLOG) 0-5 UNITS TIDWMEALS 06/11/18 17:00 Iodixanol (Visipaque 320) 209 ml 1X ONCE 06/10/18 13:30 06/10/18 13:41 DC 06/10/18 13:30 209 ML Lidocaine HCl (Lidocaine HCl 2% Abboject) 80 mg 1X ONCE 06/10/18 10:15 06/10/18 10:17 DC Lidocaine HCl (Xylocaine 1% Pf 30ml Vial) 18 ml 1X ONCE 06/10/18 13:30 06/10/18 13:41 DC 06/10/18 13:30 18 ML Lidocaine HCl/ Dextrose 500 ml @ 0 mls/hr CONT PRN 06/10/18 10:15 06/10/18 10:17 DC Lorazepam (Ativan) 0.5 mg PRN Q8HRS PRN 06/12/18 14:45 Magnesium Sulfate 50 ml @ 25 mls/hr 1X ONCE 06/11/18 13:00 06/11/18 14:59 DC 06/11/18 12:38 25 MLS/HR Magnesium Sulfate/ Dextrose 100 ml @ 100 mls/hr 1X ONCE 06/10/18 12:30 06/10/18 13:29 DC 06/10/18 13:58 100 MLS/HR Metoprolol Succinate (Toprol Xl) 25 mg DAILY 06/12/18 09:00 06/13/18 08:07 25 MG Midazolam HCl 100 ml @ 0 mls/hr CONT PRN 06/10/18 14:15 06/11/18 15:57 DC 06/10/18 14:58 3 MLS/HR Midazolam HCl (Versed) 4 mg 1X ONCE 06/10/18 13:30 06/10/18 13:41 DC 06/10/18 13:30 4 MG Nitroglycerin (Nitroglycerin) 200 mcg 1X ONCE 06/10/18 13:30 06/10/18 13:41 DC 06/10/18 13:30 200 MCG Potassium Chloride (Klor-Con) 80 meq 1X ONCE 06/12/18 12:30 06/12/18 12:31 DC 06/12/18 12:26 80 MEQ Procainamide HCl 2000 mg/Dextrose 520 ml @ 15.6 mls/hr CONT PRN 06/10/18 11:30 06/10/18 11:36 15.6 MLS/HR Propofol 100 ml @ 0 mls/hr CONT PRN 06/10/18 21:15 06/11/18 15:57 DC 06/11/18 09:12 17.5 MLS/HR Rocuronium [place] (Zemuron) 50 mg STK-MED ONCE 06/10/18 12:00 06/11/18 07:23 DC Sodium Bicarbonate (Sodium Bicarb Adult 8.4% Syr) 50 meq 1X ONCE 06/10/18 16:30 06/10/18 16:31 DC 06/10/18 16:50 50 MEQ Sodium Chloride 1,000 ml @ 75 mls/hr [id number] 06/10/18 14:00 06/12/18 12:52 DC 06/12/18 08:27 75 MLS/HR Temazepam (Restoril) 7.5 mg PRN QHS PRN 06/11/18 19:30 06/12/18 20:01 7.5 MG Ticagrelor (Brilinta) 90 mg BID 06/11/18 09:00 06/13/18 08:07 90 MG Tirofiban/Sodium Chloride 100 ml @ 0 mls/hr CONT PRN 06/10/18 13:30 06/10/18 19:30 DC 06/10/18 16:50 17.5 MLS/HR DIAGNOSTIC TESTING: Tele - no VT/VF ASSESSMENT: 1. VF storm, resolved. 2. CAD s/p LAD PCI PLAN: 1 Continue present cardiac meds. 2. Plan for device interrogation for PVC burden. 3. Plan for DC tomorrow. Thanks. JORGE LUIS FLORES MD Jun 13, 2018 10:55
[2018-06-13 11:04] VITALS: BP 136/73
[2018-06-13 11:48] LABS: CALCIUM 8.8 mg/dL (8.5-10.1); CREATININE 1.1 mg/dL (0.7-1.3); GFR 64.9; POTASSIUM 3.9 mmol/L (3.5-5.1)
[2018-06-13 11:49] LABS: MAGNESIUM 1.6 mg/dL (1.8-2.4)
[2018-06-13] MEDS ORDERED: MAGNESIUM SULFATE 2GM 50 ML IV ONE (12:00)
[2018-06-13] MEDS ORDERED: POTASSIUM CHLORIDE 20 MEQ TABLET.ER. PO ONE (12:00)
[2018-06-13 14:47] VITALS: BP 126/67
--- NOTE | 2018-06-13 17:46 | PDOC ---
PROGRESS NOTES History of Present Illness History of Present Illness Plan: Pt awake and oob --> chair and family at bedside No further shocks since LAD stenting last week Will c/t monitor Cardiac meds per cards team [facility] on Thursday per carads rec Consults: Cards Pending Issues: titrate meds ensure no more Defib shocks Vitals Vitals Vital Signs Date Time Temp Pulse Resp B/P (MAP) Pulse Ox O2 Delivery O2 Flow Rate FiO2 06/13/18 14:47 98.0 60 19 126/67 (86) 96 Room Air 98.0 06/13/18 08:15 Physical Exam General: Alert, Oriented X3 Heart: Regular rate, No murmurs, Rubs Lungs: Crackles Extremities: No clubbing, No cyanosis Labs LABS Laboratory Tests Test 06/12/18 20:32 06/13/18 07:15 06/13/18 11:15 06/13/18 11:51 Glucose (Fingerstick) 154 mg/dL (70-99) 122 mg/dL (70-99) 147 mg/dL (70-99) Sodium Level 140 mmol/L (136-145) Potassium Level 3.9 mmol/L (3.5-5.1) Chloride Level 104 mmol/L (98-107) Carbon Dioxide Level 27 mmol/L (21-32) Anion Gap 9 (6-14) Blood Urea Nitrogen 10 mg/dL (8-26) Creatinine 1.1 mg/dL (0.7-1.3) Estimated GFR (Cockcroft-Gault) 64.9 Glucose Level 187 mg/dL (70-99) Calcium Level 8.8 mg/dL (8.5-10.1) Magnesium Level 1.6 mg/dL (1.8-2.4) Test 06/13/18 17:17 Glucose (Fingerstick) 184 mg/dL (70-99) Comment Review of Relevant I have reviewed the following items guille (where applicable) has been applied. Labs Laboratory Tests Test 06/12/18 02:30 06/12/18 03:00 06/12/18 10:45 06/12/18 12:13 Sodium Level 144 mmol/L (136-145) Potassium Level 3.5 mmol/L (3.5-5.1) Chloride Level 108 mmol/L (98-107) Carbon Dioxide Level 26 mmol/L (21-32) Anion Gap 10 (6-14) Blood Urea Nitrogen 9 mg/dL (8-26) Creatinine 1.0 mg/dL (0.7-1.3) Estimated GFR (Cockcroft-Gault) 72.5 Glucose Level 128 mg/dL (70-99) Calcium Level 8.2 mg/dL (8.5-10.1) Magnesium Level 2.1 mg/dL (1.8-2.4) White Blood Count 9.1 x10^3/uL (4.0-11.0) Red Blood Count 3.39 x10^6/uL (4.30-5.70) Hemoglobin 11.8 g/dL (13.0-17.5) Hematocrit 33.5 % (39.0-53.0) Mean Corpuscular Volume 99 fL (79-100) Mean Corpuscular Hemoglobin 35 pg (25-35) Mean Corpuscular Hemoglobin Concent 35 g/dL (31-37) Red Cell Distribution Width 12.5 % (11.5-14.5) Platelet Count 185 x10^3/uL (140-400) Glucose (Fingerstick) 167 mg/dL (70-99) 132 mg/dL (70-99) Test 06/12/18 17:31 06/12/18 20:32 06/13/18 07:15 06/13/18 11:15 Glucose (Fingerstick) 143 mg/dL (70-99) 154 mg/dL (70-99) 122 mg/dL (70-99) Sodium Level 140 mmol/L (136-145) Potassium Level 3.9 mmol/L (3.5-5.1) Chloride Level 104 mmol/L (98-107) Carbon Dioxide Level 27 mmol/L (21-32) Anion Gap 9 (6-14) Blood Urea Nitrogen 10 mg/dL (8-26) Creatinine 1.1 mg/dL (0.7-1.3) Estimated GFR (Cockcroft-Gault) 64.9 Glucose Level 187 mg/dL (70-99) Calcium Level 8.8 mg/dL (8.5-10.1) Magnesium Level 1.6 mg/dL (1.8-2.4) Test 06/13/18 11:51 06/13/18 17:17 Glucose (Fingerstick) 147 mg/dL (70-99) 184 mg/dL (70-99) Laboratory Tests Test 06/12/18 20:32 06/13/18 07:15 06/13/18 11:15 06/13/18 11:51 Glucose (Fingerstick) 154 mg/dL (70-99) 122 mg/dL (70-99) 147 mg/dL (70-99) Sodium Level 140 mmol/L (136-145) Potassium Level 3.9 mmol/L (3.5-5.1) Chloride Level 104 mmol/L (98-107) Carbon Dioxide Level 27 mmol/L (21-32) Anion Gap 9 (6-14) Blood Urea Nitrogen 10 mg/dL (8-26) Creatinine 1.1 mg/dL (0.7-1.3) Estimated GFR (Cockcroft-Gault) 64.9 Glucose Level 187 mg/dL (70-99) Calcium Level 8.8 mg/dL (8.5-10.1) Magnesium Level 1.6 mg/dL (1.8-2.4) Test 06/13/18 17:17 Glucose (Fingerstick) 184 mg/dL (70-99) Medications Current Medications Lidocaine HCl/ Dextrose 500 ml @ 0 mls/hr CONT PRN IV SEE I/O RECORD; Start at 10:15; Stop 06/10/18 at 10:17; Status DC Lidocaine HCl (Lidocaine HCl 2% Abboject) 80 mg 1X ONCE IV ; Start 06/10/18 at 10:15; Stop 06/10/18 at 10:17; Status DC Esmolol HCl 250 ml @ 0 mls/hr CONT PRN IV SEE I/O RECORD Last administered on 06/10/18at 11:07; Start 06/10/18 at 10:15; Stop 06/13/18 at 15:58; Status DC Fentanyl Citrate (Fentanyl 2ml Vial) 50 mcg 1X ONCE IV Last administered on at 13:58; Start 06/10/18 at 11:30; Stop 06/10/18 at 11:31; Status DC Midazolam HCl (Versed) 2 mg 1X ONCE IV ; Start 06/10/18 at 11:30; Stop at 11:31; Status DC Procainamide HCl 2000 mg/Dextrose 520 ml @ 15.6 mls/hr CONT PRN IV SEE I/O RECORD Last administered on 06/10/18at 11:36; Start 06/10/18 at 11:30; Stop at 15:59; Status DC Midazolam HCl (Versed) 5 mg STK-MED ONCE .ROUTE ; Start 06/10/18 at 11:20; Stop 06/10/18 at 11:21; Status DC Propofol 100 ml @ As Directed STK-MED ONCE IV ; Start 06/10/18 at 11:53; Stop 06/10/18 at 11:54; Status DC Magnesium Sulfate/ Dextrose 100 ml @ 100 mls/hr 1X ONCE IV Last administered on 06/10/18at 13:58; Start 06/10/18 at 12:30; Stop 06/10/18 at 13:29; Status DC Midazolam HCl (Versed) 2 mg STK-MED ONCE .ROUTE ; Start 06/10/18 at 12:32; Stop 06/10/18 at 12:34; Status DC Heparin Sodium (Porcine) (Heparin Sodium) 10,000 unit STK-MED ONCE .ROUTE ; Start 06/10/18 at 12:51; Stop 06/10/18 at 12:52; Status DC Iodixanol (Visipaque 320) 100 ml STK-MED ONCE .ROUTE ; Start 06/10/18 at 13:08 ; Stop 06/10/18 at 13:09; Status DC Tirofiban/Sodium Chloride 100 ml @ As Directed STK-MED ONCE IV ; Start at 13:09; Stop 06/10/18 at 13:10; Status DC Midazolam HCl (Versed) 2 mg STK-MED ONCE .ROUTE ; Start 06/10/18 at 13:18; Stop 06/10/18 at 13:19; Status DC Nitroglycerin (Nitroglycerin) 200 mcg 1X ONCE ICAR Last administered on at 13:30; Start 06/10/18 at 13:30; Stop 06/10/18 at 13:41; Status DC Heparin Sodium/ Sodium Chloride (HEPARIN for ARTERIAL LINE FLUSH) 1,000 unit 1X ONCE IART Last administered on 06/10/18at 13:30; Start 06/10/18 at 13:30; Stop 06/10/18 at 13:41; Status DC Heparin Sodium/ Sodium Chloride (HEPARIN for ARTERIAL LINE FLUSH) 1,000 unit 1X ONCE IART Last administered on 06/10/18at 13:30; Start 06/10/18 at 13:30; Stop 06/10/18 at 13:41; Status DC Midazolam HCl (Versed) 4 mg 1X ONCE IV Last administered on 06/10/18at 13:30; Start 06/10/18 at 13:30; Stop 06/10/18 at 13:41; Status DC Iodixanol (Visipaque 320) 209 ml 1X ONCE IART Last administered on 06/10/18at 13:30; Start 06/10/18 at 13:30; Stop 06/10/18 at 13:41; Status DC Ticagrelor (Brilinta) 180 mg 1X ONCE PO Last administered on 06/10/18at 14:23 ; Start 06/10/18 at 13:30; Stop 06/10/18 at 13:41; Status DC Aspirin (Raj Aspirin) 325 mg 1X ONCE PO Last administered on 06/10/18at 14: 23; Start 06/10/18 at 13:30; Stop 06/10/18 at 13:41; Status DC Heparin Sodium (Porcine) (Heparin Sodium) 7,000 unit 1X ONCE IV Last administered on 06/10/18at 13:30; Start 06/10/18 at 13:30; Stop 06/10/18 at 13 :41; Status DC Tirofiban/Sodium Chloride 100 ml @ 0 mls/hr CONT PRN IV PER PROTOCOL Last administered on 06/10/18at 16:50; Start 06/10/18 at 13:30; Stop 06/10/18 at 19 :30; Status DC Lidocaine HCl (Xylocaine 1% Pf 30ml Vial) 18 ml 1X ONCE INJ Last administered on 06/10/18at 13:30; Start 06/10/18 at 13:30; Stop 06/10/18 at 13:41; Status DC Sodium Chloride 1,000 ml @ 75 mls/hr [id number] IV Last administered on at 08:27; Start 06/10/18 at 14:00; Stop 06/12/18 at 12:52; Status DC Insulin Human Lispro (HumaLOG) 0-5 UNITS Q6HRS SQ ; Start 06/10/18 at 14:30; Stop 06/11/18 at 15:57; Status DC Dextrose (Dextrose 50%-Water Syringe) 12.5 gm PRN Q15MIN PRN IV SEE COMMENTS; Start 06/10/18 at 14:15; Stop 06/11/18 at 15:57; Status DC Fentanyl Citrate (Fentanyl 2ml Vial) 50 mcg PRN Q1HR PRN IV SEE COMMENTS; Start 06/10/18 at 14:15 Midazolam HCl 100 ml @ 0 mls/hr CONT PRN IV SEE PROTOCOL Last administered on 06/10/18at 14:58; Start 06/10/18 at 14:15; Stop 06/11/18 at 15:57; Status DC Propofol 100 ml @ As Directed STK-MED ONCE IV ; Start 06/10/18 at 14:46; Stop 06/10/18 at 14:47; Status DC Famotidine (Pepcid Vial) 20 mg BID IVP Last administered on 06/13/18at 08:08; Start 06/10/18 at 21:00; Stop 06/13/18 at 16:07; Status DC Sodium Bicarbonate (Sodium Bicarb Adult 8.4% Syr) 50 meq 1X ONCE IV Last administered on 06/10/18at 16:50; Start 06/10/18 at 16:30; Stop 06/10/18 at 16 :31; Status DC Propofol 100 ml @ 0 mls/hr CONT PRN IV SEE I/O RECORD Last administered on at 09:12; Start 06/10/18 at 21:15; Stop 06/11/18 at 15:57; Status DC Rocuronium [place] (Zemuron) 50 mg STK-MED ONCE .ROUTE ; Start 06/10/18 at 12: 00; Stop 06/11/18 at 07:23; Status DC Etomidate (Amidate) 20 mg STK-MED ONCE IV ; Start 06/10/18 at 12:00; Stop at 07:23; Status DC Aspirin (Children'S Aspirin) 81 mg 1X ONCE PO Last administered on 06/11/18at 09:14; Start 06/11/18 at 08:45; Stop 06/11/18 at 08:46; Status DC Aspirin (Children'S Aspirin) 81 mg DAILYWBKFT PO Last administered on at 08:07; Start 06/12/18 at 08:00 Ticagrelor (Brilinta) 90 mg BID PO Last administered on 06/13/18at 08:07; Start 06/11/18 at 09:00 Amiodarone HCl 450 mg/Dextrose 259 ml @ 17.26 mls/ hr CONT PRN IV SEE I/O RECORD Last administered on 06/12/18at 05:53; Start 06/11/18 at 09:45; Stop at 16:00; Status DC Metoprolol Succinate (Toprol Xl) 25 mg 1X ONCE PO Last administered on at 13:51; Start 06/11/18 at 10:00; Stop 06/11/18 at 10:01; Status DC Metoprolol Succinate (Toprol Xl) 25 mg DAILY PO Last administered on at 08:07; Start 06/12/18 at 09:00 Atorvastatin Calcium (Lipitor) 40 mg QHS PO Last administered on 06/12/18at 20: 01; Start 06/11/18 at 21:00 Potassium Chloride (Klor-Con) 40 meq 1X ONCE PO Last administered on at 13:51; Start 06/11/18 at 13:00; Stop 06/11/18 at 13:01; Status DC Magnesium Sulfate 50 ml @ 25 mls/hr 1X ONCE IV Last administered on at 12:38; Start 06/11/18 at 13:00; Stop 06/11/18 at 14:59; Status DC Acetaminophen (Tylenol) 650 mg PRN Q4HRS PRN PEG MILD PAIN / TEMP; Start 06/11 at 15:45; Stop 06/11/18 at 15:57; Status DC Insulin Human Lispro (HumaLOG) 0-5 UNITS TIDWMEALS SQ ; Start 06/11/18 at 17:00 Dextrose (Dextrose 50%-Water Syringe) 12.5 gm PRN Q15MIN PRN IV SEE COMMENTS; Start 06/11/18 at 16:00 Temazepam (Restoril) 7.5 mg PRN QHS PRN PO INSOMNIA Last administered on at 20:01; Start 06/11/18 at 19:30 Amiodarone HCl (Cordarone) 400 mg BID PO Last administered on 06/13/18at 08:07 ; Start 06/12/18 at 10:00 Lorazepam (Ativan) 0.5 mg 1X ONCE PO Last administered on 06/12/18at 10:51; Start 06/12/18 at 11:00; Stop 06/12/18 at 11:01; Status DC Potassium Chloride (Klor-Con) 80 meq 1X ONCE PO Last administered on at 12:26; Start 06/12/18 at 12:30; Stop 06/12/18 at 12:31; Status DC Amlodipine Besylate (Norvasc) 5 mg 1X ONCE PO Last administered on 06/12/18at 12:26; Start 06/12/18 at 12:15; Stop 06/12/18 at 12:16; Status DC Amlodipine Besylate (Norvasc) 5 mg DAILY PO ; Start 06/13/18 at 09:00 Lorazepam (Ativan) 0.5 mg PRN Q8HRS PRN PO ANXIETY / AGITATION; Start at 14:45 Fluticasone Propionate (Flonase) 2 spray DAILY NS ; Start 06/13/18 at 09:00 Magnesium Sulfate 50 ml @ 25 mls/hr 1X ONCE IV Last administered on at 12:10; Start 06/13/18 at 12:00; Stop 06/13/18 at 13:59; Status DC Potassium Chloride (Klor-Con) 40 meq 1X ONCE PO Last administered on at 12:10; Start 06/13/18 at 12:00; Stop 06/13/18 at 12:01; Status DC Famotidine (Pepcid) 20 mg BID PO ; Start 06/13/18 at 21:00 Active Scripts Active Reported [estrodim] BID [pectacol] 6 Tab DAILY Green Tea Extract (Green Tea [place] Extract) 250 Mg Capsule 350 Mg PO BID Glucosamine (Glucosamine Sulfate 2KCL) 1,000 Mg Tablet 2,000 Mg PO DAILY [berberine/grape seed] DAILY [D ribose] Unknown Dose Fish Oil 1,000 mg Softgel ([place]-3S/Dha/Epa/Fish Oil) 1 Each Capsule 1 Each PO DAILY Vitamin E (Vitamin E Mixed) 400 Unit Capsule 400 Unit PO DAILY Percocet 5-325 Mg Tablet (Oxycodone/Acetaminophen) 1 Each Tablet 1-2 Tab PO Q4HRS PRN Vitamin C (Ascorbic Acid) 500 Mg Tablet 500 Mg PO DAILY Vitamin D3 (Cholecalciferol (Vitamin D3)) 5,000 Unit Tablet 1 Tab PO DAILY Calcium (Calcium Carbonate) 500 Mg Tab.chew 600 Mg PO DAILY Niaspan (Niacin) 500 Mg Tab.er.24h 1 Tab PO DAILY B Complex (Vitamin B Complex) 1 Each Tablet 1 Each PO DAILY Dhea (Prasterone (Dhea)) 50 Mg Capsule 75 Mg PO DAILY Aspir 81 (Aspirin) 81 Mg Tablet.dr 1 Tab PO HS Magnesium (Magnesium Oxide) 400 Mg Capsule 1 Cap PO BID Amiodarone Hcl 200 Mg Tablet 100 Mg PO QODAY Klor-Con M20 (Potassium Chloride) 20 Meq Tab.er.prt DAILYWBKFT Metoprolol Succinate ( Xl ) (Metoprolol Succinate) 200 Mg Tab.er.24h 100 DAILY Synthroid (Levothyroxine Sodium) 125 Mcg Tablet 125 DAILY Amiodarone Hcl 200 Mg Tablet 200 QODAY Vitals/I & O Vital Sign - Last 24 Hours 06/12/18 06/12/18 06/12/18 06/13/18 19:43 20:00 20:02 00:27 Temp 98.4 97.6 98.4 97.6 Pulse 61 61 66 Resp 19 19 B/P (MAP) 137/61 (86) 137/61 168/78 (108) Pulse Ox 95 94 O2 Delivery Room Air Room Air Room Air 06/13/18 06/13/18 06/13/18 06/13/18 07:24 08:07 08:07 08:12 Temp 98.0 98.0 Pulse 59 64 62 65 Resp 19 B/P (MAP) 124/63 (83) 124/63 124/63 124/63 Pulse Ox 97 O2 Delivery Room Air 06/13/18 06/13/18 06/13/18 08:15 11:04 14:47 Temp 97.9 98.0 97.9 98.0 Pulse 78 60 Resp 19 19 B/P (MAP) 136/73 (94) 126/67 (86) Pulse Ox 98 96 O2 Delivery Room Air Room Air Room Air O2 Flow Rate Intake and Output 06/12/18 06/12/18 06/13/18 15:00 23:00 07:00 Intake Total 200 ml Output Total 425 ml 400 ml Balance -225 ml -400 ml DALIA TREVIÑO MD Jun 13, 2018 17:46
[2018-06-13 18:46] VITALS: BP 145/73
[2018-06-13] MEDS: ATORVASTATIN CALCIUM 40 MG TABLET. PO SCH (20:35)
[2018-06-13] MEDS: FAMOTIDINE 20 MG TABLET. PO SCH (20:35)
[2018-06-13 22:37] VITALS: BP 122/61
[2018-06-14 03:00] VITALS: BP 145/83
[2018-06-14 07:20] VITALS: BP 144/90
[2018-06-14] MEDS: INSULIN LISPRO 300 UNITS/3 ML INSULN.PEN. SQ SCH (08:00)
[2018-06-14] MEDS: METOPROLOL SUCC 24HR ER 25 MG TAB.ER.24H. PO SCH (08:41)
[2018-06-14] MEDS: amLODIPine BESYLATE 5 MG TABLET PO SCH (08:41)
[2018-06-14] MEDS: FAMOTIDINE 20 MG TABLET. PO SCH (08:42)
[2018-06-14] MEDS: TICAGRELOR 90 MG TABLET. PO SCH (08:42)
[2018-06-14] MEDS: ASPIRIN CHEWABLE 81 MG TABLET. PO SCH (08:42)
[2018-06-14] MEDS: AMIODARONE HCL 200 MG TABLET. PO SCH (08:42)
[2018-06-14] MEDS: FLUTICASONE 50MCG/NASAL SPRAY 16GM BOTTLE. NS SCH (08:45)
[2018-06-14 10:54] VITALS: BP 130/76
--- NOTE | 2018-06-14 11:43 | PDOC ---
ANTOINELIZABETH LUCÍA 06/14/18 1143: CARDIO Progress Notes Date and Time Date of Service 06/14/18 Time of Evaluation 1130 Subjective Subjective: No Chest Pain, No shortness of breath Vitals Vitals Vital Signs Date Time Temp Pulse Resp B/P (MAP) Pulse Ox O2 Delivery O2 Flow Rate FiO2 06/14/18 10:54 97.9 80 22 130/76 (94) 95 Room Air 97.9 06/13/18 08:15 Weight Weight [ ] Input and Output Intake and Output Intake and Output 06/14/18 07:00 Intake Total 1050 ml Output Total 1 ml Balance 1049 ml Intake Oral 1050 ml Output Urine Total 1 ml # Voids 2 Laboratory Labs Laboratory Tests Test 06/13/18 11:51 06/13/18 17:17 06/13/18 20:37 06/14/18 07:22 Glucose (Fingerstick) 147 mg/dL (70-99) 184 mg/dL (70-99) 174 mg/dL (70-99) 136 mg/dL (70-99) Test 06/14/18 11:29 Glucose (Fingerstick) 157 mg/dL (70-99) Physical Exam HEENT: Neck Supple W Full Motion LUNGS: Clear to Auscultation Heart: S1S2, RRR Abdomen: Soft N/T Extremities: No Calf Tenderness, Other (LUE AC erythema/edema ) Neurology: alert, oriented, follow commands Assessment Assessment 1. VF storm, resolved. 2. Idiopathetic VT 3. CAD s/p LAD PCI 4. Anxiety 6. Hypomagnesemia; replaced Recommendations Secondary prevention measures including DAPT with ASA and Brilinta Risk stratification modification Cardiac rehab referral Amiodarone for rhythm maintenance F/u with EP, Dr. Turner, in 1-2 weeks. 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 JORGE LUIS FLORES MD 06/14/18 1531: CARDIO Progress Notes Plan Plan Pt. seen and examined. Agree with above CONFIDENTIAL INVESTIGATOR note. Spoke to Dr. Rocha at [facility]. f/u in the office with us for PCI and then will f/u with [facility] as usual. LIZABETH SCHULTZ APRN Jun 14, 2018 11:43 JORGE LUIS FLORES MD Jun 14, 2018 15:31
--- NOTE | 2018-06-14 12:26 | DS ---
DATE OF DISCHARGE: 06/14/2018 ADMISSION DIAGNOSIS: Arrhythmias (he has an AICD that was firing). DISCHARGE DIAGNOSIS: 1. New coronary artery disease noted and the patient went for cardiac catheterization and he got a stent to the left anterior descending. 2. History of automatic implantable cardioverter defibrillator. 3. History of idiopathic ventricular fibrillation. CONSULTS: Dr. Longoria. PROCEDURES: Cardiac catheterization with stent placement. 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 Basically, he has got idiopathic V-fib. He had an old AICD for years that has been replaced twice. On , he developed V-Fib, we think. His AICD started firing. They called the ambulance. He was brought into the hospital. He was actually intubated at one point because they were worried about the ICD continuing to fire and they did not want him feeling that. He was taken to the labor mediator. He did receive an LAD stent. Post-procedure, he is now extubated, he is up on the cardiac floor, he is doing great. Although the patient is complaining of anxiety, we are going to send him home and have him see his doctor in a week. DISPOSITION: Home. ACTIVITY: As tolerated. DIET: Cardiac. MEDICATIONS: Please see the MRAD. LM BRASWELL DO DR: RIKI/elizabeth JOB#: [id number] / [id number] OFFICE, [facility] SCOTT MCGOVERN MD
[2018-06-14 12:50] LABS: CALCIUM 9.2 mg/dL (8.5-10.1); CREATININE 1.2 mg/dL (0.7-1.3); GFR 58.7; POTASSIUM 3.9 mmol/L (3.5-5.1)
--- NOTE | 2018-06-14 13:15 | RAD ---
Left Upper Extremity Venous Doppler Ultrasound Indication: Left arm swelling. Comparison: None. Procedure: Color Doppler, spectral Doppler, and grayscale imaging was performed of the upper extremity. Imaged veins were jugular, subclavian, axillary, brachial, radial, ulnar, basilic, and cephalic veins. Findings: Occlusive superficial venous thrombosis can be seen involving the left cephalic vein extending from the upper arm through the antecubital region. The other veins are patent and demonstrate normal Doppler flow dynamics. There is no evidence of upper extremity deep venous thrombosis. Impression: 1. Occlusive superficial venous thrombosis involving portions of the left cephalic vein. 2. No evidence of left upper extremity deep venous thrombosis. 3. Results were relayed by environmental health technologist to patient's nurse soon upon completion of examination. Electronically signed by: Constantin Cornejo MD (06/14/2018 1:11 PM) [facility]
--- NOTE | 2018-06-14 13:29 | PDOC ---
PROGRESS NOTES Chief Complaint Chief Complaint V-Fib History of Present Illness History of Present Illness Pt was seen today at bedside with his family in the room. He had underwent cardiac catherization 06/10 and 1 stent was placed in the LAD. He has a indurated, hard, and hot to the touch lesion on his bicep, so a L UE US was ordered to r/o DVT. He complains only of anxiety - pt was prescribed 0.5 xanax. Vitals Vitals Vital Signs Date Time Temp Pulse Resp B/P (MAP) Pulse Ox O2 Delivery O2 Flow Rate FiO2 06/14/18 10:54 97.9 80 22 130/76 (94) 95 Room Air 97.9 06/13/18 08:15 Physical Exam General: Alert, Oriented X3 Heart: Regular rate, No murmurs, Rubs Lungs: Crackles Abdomen: Normal bowel sounds, Soft Extremities: No clubbing, No cyanosis Skin: Other (Indurated, hot, hard lesion on left bicep) Labs LABS Laboratory Tests Test 06/13/18 17:17 06/13/18 20:37 06/14/18 07:22 06/14/18 11:29 Glucose (Fingerstick) 184 mg/dL (70-99) 174 mg/dL (70-99) 136 mg/dL (70-99) 157 mg/dL (70-99) Test 06/14/18 12:30 Sodium Level 139 mmol/L (136-145) Potassium Level 3.9 mmol/L (3.5-5.1) Chloride Level 102 mmol/L (98-107) Carbon Dioxide Level 28 mmol/L (21-32) Anion Gap 9 (6-14) Blood Urea Nitrogen 11 mg/dL (8-26) Creatinine 1.2 mg/dL (0.7-1.3) Estimated GFR (Cockcroft-Gault) 58.7 Glucose Level 151 mg/dL (70-99) Calcium Level 9.2 mg/dL (8.5-10.1) Magnesium Level 2.0 mg/dL (1.8-2.4) Review of Systems Review of Systems GENERAL: No unexpected wt loss, fever/chills GI: No n/v, abd pain HEENT: No changes in vision, hearing Assessment and Plan Assessmemt and Plan ASSESSMENT: V-Fib PLAN: US of L UE to r/o DVT Prescribed 0.5 xanax for anxiety Home meds Consult pt/ot Discharge today if cleared by cardio F/u with PCP in 1 week Comment Review of Relevant I have reviewed the following items guille (where applicable) has been applied. Labs Laboratory Tests Test 06/12/18 17:31 06/12/18 20:32 06/13/18 07:15 06/13/18 11:15 Glucose (Fingerstick) 143 mg/dL (70-99) 154 mg/dL (70-99) 122 mg/dL (70-99) Sodium Level 140 mmol/L (136-145) Potassium Level 3.9 mmol/L (3.5-5.1) Chloride Level 104 mmol/L (98-107) Carbon Dioxide Level 27 mmol/L (21-32) Anion Gap 9 (6-14) Blood Urea Nitrogen 10 mg/dL (8-26) Creatinine 1.1 mg/dL (0.7-1.3) Estimated GFR (Cockcroft-Gault) 64.9 Glucose Level 187 mg/dL (70-99) Calcium Level 8.8 mg/dL (8.5-10.1) Magnesium Level 1.6 mg/dL (1.8-2.4) Test 06/13/18 11:51 06/13/18 17:17 06/13/18 20:37 06/14/18 07:22 Glucose (Fingerstick) 147 mg/dL (70-99) 184 mg/dL (70-99) 174 mg/dL (70-99) 136 mg/dL (70-99) Test 06/14/18 11:29 06/14/18 12:30 Glucose (Fingerstick) 157 mg/dL (70-99) Sodium Level 139 mmol/L (136-145) Potassium Level 3.9 mmol/L (3.5-5.1) Chloride Level 102 mmol/L (98-107) Carbon Dioxide Level 28 mmol/L (21-32) Anion Gap 9 (6-14) Blood Urea Nitrogen 11 mg/dL (8-26) Creatinine 1.2 mg/dL (0.7-1.3) Estimated GFR (Cockcroft-Gault) 58.7 Glucose Level 151 mg/dL (70-99) Calcium Level 9.2 mg/dL (8.5-10.1) Magnesium Level 2.0 mg/dL (1.8-2.4) Laboratory Tests Test 06/13/18 17:17 06/13/18 20:37 06/14/18 07:22 06/14/18 11:29 Glucose (Fingerstick) 184 mg/dL (70-99) 174 mg/dL (70-99) 136 mg/dL (70-99) 157 mg/dL (70-99) Test 06/14/18 12:30 Sodium Level 139 mmol/L (136-145) Potassium Level 3.9 mmol/L (3.5-5.1) Chloride Level 102 mmol/L (98-107) Carbon Dioxide Level 28 mmol/L (21-32) Anion Gap 9 (6-14) Blood Urea Nitrogen 11 mg/dL (8-26) Creatinine 1.2 mg/dL (0.7-1.3) Estimated GFR (Cockcroft-Gault) 58.7 Glucose Level 151 mg/dL (70-99) Calcium Level 9.2 mg/dL (8.5-10.1) Magnesium Level 2.0 mg/dL (1.8-2.4) Medications Current Medications Lidocaine HCl/ Dextrose 500 ml @ 0 mls/hr CONT PRN IV SEE I/O RECORD; Start at 10:15; Stop 06/10/18 at 10:17; Status DC Lidocaine HCl (Lidocaine HCl 2% Abboject) 80 mg 1X ONCE IV ; Start 06/10/18 at 10:15; Stop 06/10/18 at 10:17; Status DC Esmolol HCl 250 ml @ 0 mls/hr CONT PRN IV SEE I/O RECORD Last administered on 06/10/18at 11:07; Start 06/10/18 at 10:15; Stop 06/13/18 at 15:58; Status DC Fentanyl Citrate (Fentanyl 2ml Vial) 50 mcg 1X ONCE IV Last administered on at 13:58; Start 06/10/18 at 11:30; Stop 06/10/18 at 11:31; Status DC Midazolam HCl (Versed) 2 mg 1X ONCE IV ; Start 06/10/18 at 11:30; Stop at 11:31; Status DC Procainamide HCl 2000 mg/Dextrose 520 ml @ 15.6 mls/hr CONT PRN IV SEE I/O RECORD Last administered on 06/10/18at 11:36; Start 06/10/18 at 11:30; Stop at 15:59; Status DC Midazolam HCl (Versed) 5 mg STK-MED ONCE .ROUTE ; Start 06/10/18 at 11:20; Stop 06/10/18 at 11:21; Status DC Propofol 100 ml @ As Directed STK-MED ONCE IV ; Start 06/10/18 at 11:53; Stop 06/10/18 at 11:54; Status DC Magnesium Sulfate/ Dextrose 100 ml @ 100 mls/hr 1X ONCE IV Last administered on 06/10/18at 13:58; Start 06/10/18 at 12:30; Stop 06/10/18 at 13:29; Status DC Midazolam HCl (Versed) 2 mg STK-MED ONCE .ROUTE ; Start 06/10/18 at 12:32; Stop 06/10/18 at 12:34; Status DC Heparin Sodium (Porcine) (Heparin Sodium) 10,000 unit STK-MED ONCE .ROUTE ; Start 06/10/18 at 12:51; Stop 06/10/18 at 12:52; Status DC Iodixanol (Visipaque 320) 100 ml STK-MED ONCE .ROUTE ; Start 06/10/18 at 13:08 ; Stop 06/10/18 at 13:09; Status DC Tirofiban/Sodium Chloride 100 ml @ As Directed STK-MED ONCE IV ; Start at 13:09; Stop 06/10/18 at 13:10; Status DC Midazolam HCl (Versed) 2 mg STK-MED ONCE .ROUTE ; Start 06/10/18 at 13:18; Stop 06/10/18 at 13:19; Status DC Nitroglycerin (Nitroglycerin) 200 mcg 1X ONCE ICAR Last administered on at 13:30; Start 06/10/18 at 13:30; Stop 06/10/18 at 13:41; Status DC Heparin Sodium/ Sodium Chloride (HEPARIN for ARTERIAL LINE FLUSH) 1,000 unit 1X ONCE IART Last administered on 06/10/18at 13:30; Start 06/10/18 at 13:30; Stop 06/10/18 at 13:41; Status DC Heparin Sodium/ Sodium Chloride (HEPARIN for ARTERIAL LINE FLUSH) 1,000 unit 1X ONCE IART Last administered on 06/10/18at 13:30; Start 06/10/18 at 13:30; Stop 06/10/18 at 13:41; Status DC Midazolam HCl (Versed) 4 mg 1X ONCE IV Last administered on 06/10/18at 13:30; Start 06/10/18 at 13:30; Stop 06/10/18 at 13:41; Status DC Iodixanol (Visipaque 320) 209 ml 1X ONCE IART Last administered on 06/10/18at 13:30; Start 06/10/18 at 13:30; Stop 06/10/18 at 13:41; Status DC Ticagrelor (Brilinta) 180 mg 1X ONCE PO Last administered on 06/10/18at 14:23 ; Start 06/10/18 at 13:30; Stop 06/10/18 at 13:41; Status DC Aspirin (Raj Aspirin) 325 mg 1X ONCE PO Last administered on 06/10/18at 14: 23; Start 06/10/18 at 13:30; Stop 06/10/18 at 13:41; Status DC Heparin Sodium (Porcine) (Heparin Sodium) 7,000 unit 1X ONCE IV Last administered on 06/10/18at 13:30; Start 06/10/18 at 13:30; Stop 06/10/18 at 13 :41; Status DC Tirofiban/Sodium Chloride 100 ml @ 0 mls/hr CONT PRN IV PER PROTOCOL Last administered on 06/10/18at 16:50; Start 06/10/18 at 13:30; Stop 06/10/18 at 19 :30; Status DC Lidocaine HCl (Xylocaine 1% Pf 30ml Vial) 18 ml 1X ONCE INJ Last administered on 06/10/18at 13:30; Start 06/10/18 at 13:30; Stop 06/10/18 at 13:41; Status DC Sodium Chloride 1,000 ml @ 75 mls/hr [id number] IV Last administered on at 08:27; Start 06/10/18 at 14:00; Stop 06/12/18 at 12:52; Status DC Insulin Human Lispro (HumaLOG) 0-5 UNITS Q6HRS SQ ; Start 06/10/18 at 14:30; Stop 06/11/18 at 15:57; Status DC Dextrose (Dextrose 50%-Water Syringe) 12.5 gm PRN Q15MIN PRN IV SEE COMMENTS; Start 06/10/18 at 14:15; Stop 06/11/18 at 15:57; Status DC Fentanyl Citrate (Fentanyl 2ml Vial) 50 mcg PRN Q1HR PRN IV SEE COMMENTS; Start 06/10/18 at 14:15 Midazolam HCl 100 ml @ 0 mls/hr CONT PRN IV SEE PROTOCOL Last administered on 06/10/18at 14:58; Start 06/10/18 at 14:15; Stop 06/11/18 at 15:57; Status DC Propofol 100 ml @ As Directed STK-MED ONCE IV ; Start 06/10/18 at 14:46; Stop 06/10/18 at 14:47; Status DC Famotidine (Pepcid Vial) 20 mg BID IVP Last administered on 06/13/18at 08:08; Start 06/10/18 at 21:00; Stop 06/13/18 at 16:07; Status DC Sodium Bicarbonate (Sodium Bicarb Adult 8.4% Syr) 50 meq 1X ONCE IV Last administered on 06/10/18at 16:50; Start 06/10/18 at 16:30; Stop 06/10/18 at 16 :31; Status DC Propofol 100 ml @ 0 mls/hr CONT PRN IV SEE I/O RECORD Last administered on at 09:12; Start 06/10/18 at 21:15; Stop 06/11/18 at 15:57; Status DC Rocuronium [place] (Zemuron) 50 mg STK-MED ONCE .ROUTE ; Start 06/10/18 at 12: 00; Stop 06/11/18 at 07:23; Status DC Etomidate (Amidate) 20 mg STK-MED ONCE IV ; Start 06/10/18 at 12:00; Stop at 07:23; Status DC Aspirin (Children'S Aspirin) 81 mg 1X ONCE PO Last administered on 06/11/18at 09:14; Start 06/11/18 at 08:45; Stop 06/11/18 at 08:46; Status DC Aspirin (Children'S Aspirin) 81 mg DAILYWBKFT PO Last administered on at 08:42; Start 06/12/18 at 08:00 Ticagrelor (Brilinta) 90 mg BID PO Last administered on 06/14/18at 08:42; Start 06/11/18 at 09:00 Amiodarone HCl 450 mg/Dextrose 259 ml @ 17.26 mls/ hr CONT PRN IV SEE I/O RECORD Last administered on 06/12/18at 05:53; Start 06/11/18 at 09:45; Stop at 16:00; Status DC Metoprolol Succinate (Toprol Xl) 25 mg 1X ONCE PO Last administered on at 13:51; Start 06/11/18 at 10:00; Stop 06/11/18 at 10:01; Status DC Metoprolol Succinate (Toprol Xl) 25 mg DAILY PO Last administered on at 08:41; Start 06/12/18 at 09:00 Atorvastatin Calcium (Lipitor) 40 mg QHS PO Last administered on 06/13/18at 20: 35; Start 06/11/18 at 21:00 Potassium Chloride (Klor-Con) 40 meq 1X ONCE PO Last administered on at 13:51; Start 06/11/18 at 13:00; Stop 06/11/18 at 13:01; Status DC Magnesium Sulfate 50 ml @ 25 mls/hr 1X ONCE IV Last administered on at 12:38; Start 06/11/18 at 13:00; Stop 06/11/18 at 14:59; Status DC Acetaminophen (Tylenol) 650 mg PRN Q4HRS PRN PEG MILD PAIN / TEMP; Start 06/11 at 15:45; Stop 06/11/18 at 15:57; Status DC Insulin Human Lispro (HumaLOG) 0-5 UNITS TIDWMEALS SQ ; Start 06/11/18 at 17:00 Dextrose (Dextrose 50%-Water Syringe) 12.5 gm PRN Q15MIN PRN IV SEE COMMENTS; Start 06/11/18 at 16:00 Temazepam (Restoril) 7.5 mg PRN QHS PRN PO INSOMNIA Last administered on at 20:01; Start 06/11/18 at 19:30 Amiodarone HCl (Cordarone) 400 mg BID PO Last administered on 06/14/18at 08:42 ; Start 06/12/18 at 10:00 Lorazepam (Ativan) 0.5 mg 1X ONCE PO Last administered on 06/12/18at 10:51; Start 06/12/18 at 11:00; Stop 06/12/18 at 11:01; Status DC Potassium Chloride (Klor-Con) 80 meq 1X ONCE PO Last administered on at 12:26; Start 06/12/18 at 12:30; Stop 06/12/18 at 12:31; Status DC Amlodipine Besylate (Norvasc) 5 mg 1X ONCE PO Last administered on 06/12/18at 12:26; Start 06/12/18 at 12:15; Stop 06/12/18 at 12:16; Status DC Amlodipine Besylate (Norvasc) 5 mg DAILY PO Last administered on 06/14/18at 08: 41; Start 06/13/18 at 09:00 Lorazepam (Ativan) 0.5 mg PRN Q8HRS PRN PO ANXIETY / AGITATION Last administered on 06/14/18at 11:03; Start 06/12/18 at 14:45 Fluticasone Propionate (Flonase) 2 spray DAILY NS Last administered on at 08:45; Start 06/13/18 at 09:00 Magnesium Sulfate 50 ml @ 25 mls/hr 1X ONCE IV Last administered on at 12:10; Start 06/13/18 at 12:00; Stop 06/13/18 at 13:59; Status DC Potassium Chloride (Klor-Con) 40 meq 1X ONCE PO Last administered on at 12:10; Start 06/13/18 at 12:00; Stop 06/13/18 at 12:01; Status DC Famotidine (Pepcid) 20 mg BID PO Last administered on 06/14/18at 08:42; Start 06/13/18 at 21:00 Fentanyl Citrate (Fentanyl 2ml Vial) 100 mcg STK-MED ONCE .ROUTE ; Start at 12:00; Stop 06/14/18 at 09:11; Status DC Midazolam HCl (Versed) 5 mg STK-MED ONCE .ROUTE ; Start 06/10/18 at 12:00; Stop 06/14/18 at 09:11; Status DC Propofol (Diprivan) 2,000 mg STK-MED ONCE IV ; Start 06/10/18 at 12:00; Stop 06/14/18 at 09:11; Status DC Active Scripts Active Reported [estrodim] BID [pectacol] 6 Tab DAILY Green Tea Extract (Green Tea [place] Extract) 250 Mg Capsule 350 Mg PO BID Glucosamine (Glucosamine Sulfate 2KCL) 1,000 Mg Tablet 2,000 Mg PO DAILY [berberine/grape seed] DAILY [D ribose] Unknown Dose Fish Oil 1,000 mg Softgel ([place]-3S/Dha/Epa/Fish Oil) 1 Each Capsule 1 Each PO DAILY Vitamin E (Vitamin E Mixed) 400 Unit Capsule 400 Unit PO DAILY Percocet 5-325 Mg Tablet (Oxycodone/Acetaminophen) 1 Each Tablet 1-2 Tab PO Q4HRS PRN Vitamin C (Ascorbic Acid) 500 Mg Tablet 500 Mg PO DAILY Vitamin D3 (Cholecalciferol (Vitamin D3)) 5,000 Unit Tablet 1 Tab PO DAILY Calcium (Calcium Carbonate) 500 Mg Tab.chew 600 Mg PO DAILY Niaspan (Niacin) 500 Mg Tab.er.24h 1 Tab PO DAILY B Complex (Vitamin B Complex) 1 Each Tablet 1 Each PO DAILY Dhea (Prasterone (Dhea)) 50 Mg Capsule 75 Mg PO DAILY Aspir 81 (Aspirin) 81 Mg Tablet. 1 Tab PO HS Magnesium (Magnesium Oxide) 400 Mg Capsule 1 Cap PO BID Amiodarone Hcl 200 Mg Tablet 100 Mg PO QODAY Klor-Con M20 (Potassium Chloride) 20 Meq Tab.er.prt DAILYWBKFT Metoprolol Succinate ( Xl ) (Metoprolol Succinate) 200 Mg Tab.er.24h 100 DAILY Synthroid (Levothyroxine Sodium) 125 Mcg Tablet 125 DAILY Amiodarone Hcl 200 Mg Tablet 200 QODAY Vitals/I & O Vital Sign - Last 24 Hours 06/13/18 06/13/18 06/13/18 06/13/18 14:47 18:46 19:43 20:35 Temp 98.0 99.3 98.0 99.3 Pulse 60 63 63 Resp 19 19 B/P (MAP) 126/67 (86) 145/73 (97) 145/73 Pulse Ox 96 96 O2 Delivery Room Air Room Air Room Air 11/2506/14/18 06/14/18 06/14/18 22:37 03:00 07:20 08:00 Temp 98.8 97.9 97.9 98.8 97.9 97.9 Pulse 63 70 83 Resp 22 22 22 B/P (MAP) 122/61 (81) 145/83 (103) 144/90 (108) Pulse Ox 96 97 95 O2 Delivery BiPAP/CPAP Room Air Room Air Room Air 06/14/18 06/14/18 06/14/18 06/14/18 08:41 08:41 08:42 10:54 Temp 97.9 97.9 Pulse 83 83 83 80 Resp B/P (MAP) 144/90 144/90 144/90 130/76 (94) Pulse Ox 95 O2 Delivery Room Air Intake and Output 06/13/18 06/13/18 06/14/18 15:00 23:00 07:00 Intake Total 1050 ml Output Total 1 ml Balance 1050 ml -1 ml LM BRASWELL III DO Jun 14, 2018 13:29
[2018-06-14] MEDS ORDERED: AMIO200T4 PO (13:56)
[2018-06-14] MEDS ORDERED: TICA90TA PO (13:56)
--- NOTE | 2018-06-14 14:15 | PDOC ---
PULMONARY PROGRESS NOTES Subjective no sob, no cp, Vitals Vital Signs Date Time Temp Pulse Resp B/P (MAP) Pulse Ox O2 Delivery O2 Flow Rate FiO2 06/14/18 10:54 97.9 80 22 130/76 (94) 95 Room Air 97.9 06/13/18 08:15 Comments ros as mentioned as above other sys otherwise neg ROS: No Chest Pain General: Alert HEENT: Other (nc at perrl nose throat clear neck no lad, no thyromegaly) Lungs: Clear Cardiovascular: S1, S2 Abdomen: Soft, Non-tender Neuro Exam: Alert Extremities: No Edema Skin: Warm Labs Laboratory Tests Test 06/12/18 17:31 06/12/18 20:32 06/13/18 07:15 06/13/18 11:15 Glucose (Fingerstick) 143 mg/dL (70-99) 154 mg/dL (70-99) 122 mg/dL (70-99) Sodium Level 140 mmol/L (136-145) Potassium Level 3.9 mmol/L (3.5-5.1) Chloride Level 104 mmol/L (98-107) Carbon Dioxide Level 27 mmol/L (21-32) Anion Gap 9 (6-14) Blood Urea Nitrogen 10 mg/dL (8-26) Creatinine 1.1 mg/dL (0.7-1.3) Estimated GFR (Cockcroft-Gault) 64.9 Glucose Level 187 mg/dL (70-99) Calcium Level 8.8 mg/dL (8.5-10.1) Magnesium Level 1.6 mg/dL (1.8-2.4) Test 06/13/18 11:51 06/13/18 17:17 06/13/18 20:37 06/14/18 07:22 Glucose (Fingerstick) 147 mg/dL (70-99) 184 mg/dL (70-99) 174 mg/dL (70-99) 136 mg/dL (70-99) Test 06/14/18 11:29 06/14/18 12:30 Glucose (Fingerstick) 157 mg/dL (70-99) Sodium Level 139 mmol/L (136-145) Potassium Level 3.9 mmol/L (3.5-5.1) Chloride Level 102 mmol/L (98-107) Carbon Dioxide Level 28 mmol/L (21-32) Anion Gap 9 (6-14) Blood Urea Nitrogen 11 mg/dL (8-26) Creatinine 1.2 mg/dL (0.7-1.3) Estimated GFR (Cockcroft-Gault) 58.7 Glucose Level 151 mg/dL (70-99) Calcium Level 9.2 mg/dL (8.5-10.1) Magnesium Level 2.0 mg/dL (1.8-2.4) Laboratory Tests Test 06/13/18 17:17 06/13/18 20:37 06/14/18 07:22 06/14/18 11:29 Glucose (Fingerstick) 184 mg/dL (70-99) 174 mg/dL (70-99) 136 mg/dL (70-99) 157 mg/dL (70-99) Test 06/14/18 12:30 Sodium Level 139 mmol/L (136-145) Potassium Level 3.9 mmol/L (3.5-5.1) Chloride Level 102 mmol/L (98-107) Carbon Dioxide Level 28 mmol/L (21-32) Anion Gap 9 (6-14) Blood Urea Nitrogen 11 mg/dL (8-26) Creatinine 1.2 mg/dL (0.7-1.3) Estimated GFR (Cockcroft-Gault) 58.7 Glucose Level 151 mg/dL (70-99) Calcium Level 9.2 mg/dL (8.5-10.1) Magnesium Level 2.0 mg/dL (1.8-2.4) Medications Active Scripts Medications Dose Route/Sig Max Daily Dose Days Date Category [estrodim] BID 02/03/18 Reported [pectacol] 6 Tab DAILY 02/03/18 Reported Green Tea Extract (Green Tea [place] Extract) 250 Mg Capsule 350 Mg PO BID 02/03/18 Reported Glucosamine (Glucosamine Sulfate 2KCL) 1,000 Mg Tablet 2,000 Mg PO DAILY 02/03/18 Reported [berberine/grape seed] DAILY 02/03/18 Reported [D ribose] Unknown Dose 02/03/18 Reported Fish Oil 1,000 mg Softgel ([place]-3S/Dha/Epa/Fish Oil) 1 Each Capsule 1 Each PO DAILY 02/03/18 Reported Vitamin E (Vitamin E Mixed) 400 Unit Capsule 400 Unit PO DAILY 02/03/18 Reported Percocet 5-325 Mg Tablet (Oxycodone/Acetaminophen) 1 Each Tablet 1-2 Tab PO Q4HRS PRN 07/29/17 Reported Vitamin C (Ascorbic Acid) 500 Mg Tablet 500 Mg PO DAILY 07/27/17 Reported Vitamin D3 (Cholecalciferol (Vitamin D3)) 5,000 Unit Tablet 1 Tab PO DAILY 07/27/17 Reported Calcium (Calcium Carbonate) 500 Mg Tab.chew 600 Mg PO DAILY 07/27/17 Reported Niaspan (Niacin) 500 Mg Tab.er.24h 1 Tab PO DAILY 07/27/17 Reported B Complex (Vitamin B Complex) 1 Each Tablet 1 Each PO DAILY 07/27/17 Reported Dhea (Prasterone (Dhea)) 50 Mg Capsule 75 Mg PO DAILY 07/27/17 Reported Aspir 81 (Aspirin) 81 Mg Tablet.dr 1 Tab PO HS 07/27/17 Reported Magnesium (Magnesium Oxide) 400 Mg Capsule 1 Cap PO BID 07/27/17 Reported Amiodarone Hcl 200 Mg Tablet 100 Mg PO QODAY 07/27/17 Reported Klor-Con M20 (Potassium Chloride) 20 Meq Tab.er.prt DAILYWBKFT 07/27/17 Reported Metoprolol Succinate ( Xl ) (Metoprolol Succinate) 200 Mg Tab.er.24h 100 DAILY 07/27/17 Reported Synthroid (Levothyroxine Sodium) 125 Mcg Tablet 125 DAILY 07/27/17 Reported Amiodarone Hcl 200 Mg Tablet 200 QODAY 07/27/17 Reported Comments cxr reviewed Impression . IMPRESSION: 1. Acute respiratory failure, status post recurrent ventricular tachycardia, status post resuscitation in the Emergency Room. 2. Emergent cardiac catheterization revealing stenosis of the LAD, status post PCI. 3. Mixed ischemic and nonischemic cardiomyopathy. 4. KENY 5. allergic rhinitis Plan . PLAN: 1. off o2 2. Continue current support. 3. Follow Cardiology input. 4. use cpap during sleep, 5. flonase. ok with tamara yadav w rn, pt KATY NEWBERRY MD Jun 14, 2018 14:15
== END 2018-06-14 16:12 | disposition home or self-care (01) | DRG 246 ==
LOC: 1 WEST ICU 09:17 → 2 NORTH 06-12 17:05
PROVIDERS: ADMIT Hospitalist; ATTEND Hospitalist
PROC: 027034Z Dilation of Coronary Artery, One Artery with Drug-eluting Intraluminal Device, Percutaneous Approach (ICD-10-PCS; principal; 2018-06-10)
PROC: 4A023N7 Measurement of Cardiac Sampling and Pressure, Left Heart, Percutaneous Approach (ICD-10-PCS; 2018-06-10)
PROC: B2111ZZ Fluoroscopy of Multiple Coronary Arteries using Low Osmolar Contrast (ICD-10-PCS; 2018-06-10)
PROC: B2151ZZ Fluoroscopy of Left Heart using Low Osmolar Contrast (ICD-10-PCS; 2018-06-10)
PROC: 3E033PZ Introduction of Platelet Inhibitor into Peripheral Vein, Percutaneous Approach (ICD-10-PCS; 2018-06-10)
PROC: 0BH17EZ Insertion of Endotracheal Airway into Trachea, Via Natural or Artificial Opening (ICD-10-PCS; 2018-06-10)
PROC: 5A1945Z Respiratory Ventilation, 24-96 Consecutive Hours (ICD-10-PCS; 2018-06-10)
PROC: 5A09357 Assistance with Respiratory Ventilation, Less than 24 Consecutive Hours, Continuous Positive Airway Pressure (ICD-10-PCS; 2018-06-13)
DX: I49.01 Ventricular fibrillation (principal); J96.00 Acute respiratory failure, unspecified whether with hypoxia or hypercapnia; E83.42 Hypomagnesemia; Z79.899 Other long term (current) drug therapy; I25.10 Atherosclerotic heart disease of native coronary artery without angina pectoris; I25.5 Ischemic cardiomyopathy; G47.33 Obstructive sleep apnea (adult) (pediatric); F41.9 Anxiety disorder, unspecified; I10 Essential (primary) hypertension; J30.9 Allergic rhinitis, unspecified; Z86.79 Personal history of other diseases of the circulatory system; Z87.891 Personal history of nicotine dependence; Z95.810 Presence of automatic (implantable) cardiac defibrillator
CPT/HCPCS: 36415; 36600; 71045; 80048; 80053; 82805; 82962; 83735; 85027; 87641; 93005; 93306; 93458; 93971; 94003; 94660; C1725; C1769; C1771; C1874; C1887; C1892; J0282; J1644; J1815; J2250; J2690; J2704; J3010; J3475; J3490; J7030; J3246

== ENCOUNTER 2018-06-21 12:10 | Observation (INO) | payer MEDICARE, BC ==
[~2018-06-21] VITALS: Ht 177.8 cm; Wt 93.0 kg
[~2018-06-21 12:10] MED LIST changes: +TICA90TA PO
--- NOTE | 2018-06-21 13:14 | EKG ---
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
[2018-06-21] MEDS ORDERED: IV NORMAL SALINE 1000ML BAG 1,000 ML IV ONE (13:15)
[2018-06-21] MEDS ORDERED: ASPIRIN 325 MG TABLET PO ONE (13:15)
[2018-06-21 13:19] LABS: BASO # 0.1 x10^3/uL (0.0-0.2); BASO % 1 % (0-3); EOS # 0.1 x10^3/uL (0.0-0.7); EOS % 2 % (0-3); HEMOGLOBIN 12.8 g/dL (13.0-17.5); LYMPH # 1.3 x10^3/uL (1.0-4.8); LYMPH % 19 % (24-48); MEAN CORPUSCULAR HEMOGLOBIN 34 pg (25-35); MEAN CORPUSCULAR HGB CONC 35 g/dL (31-37); MEAN CORPUSCULAR VOLUME 98 fL (79-100); MONO # 0.6 x10^3/uL (0.0-1.1); MONO % 9 % (0-9); NEUT # 4.6 x10^3uL (1.8-7.7); NEUT % 68 % (31-73); PLATELET COUNT 429 x10^3/uL (140-400); RED BLOOD COUNT 3.79 x10^6/uL (4.30-5.70); RED CELL DISTRIBUTION WIDTH 12.6 % (11.5-14.5); WHITE BLOOD COUNT 6.8 x10^3/uL (4.0-11.0)
--- NOTE | 2018-06-21 13:25 | PHYS DOC ---
Past Medical History Past Medical History: CAD, Cancer Additional Past Medical Histor: SLEEP APNEA, PROSTATE CANCER, IDIOVENTRICULAR DYSRYTHMIA Past Surgical History: Appendectomy, Pacemaker ([employer]tronic AICD) Additional Past Surgical Histo: SHOULDER, KNEE, Cardiac stent Smoking: Quit Greater Than 1 Year Alcohol Use: Occasionally Drug Use: None Adult General Chief Complaint Chief Complaint: OTHER COMPLAINTS HPI HPI 77-year-old male presents with report of lightheadedness and concerned that his AICD might have "gone off" at approximately 1100 today. Patient recently admitted on Thanksgiving for same to [place] and was found to have some coronary blockage requiring catheterization and stent placement. Reports some chest discomfort. Denies "room spinning" sensation. Denies fever/chills. Denies cough. Review of Systems Review of Systems Constitutional: Denies fever or chills [] Eyes: Denies change in visual acuity, redness, or eye pain [] HENT: Denies nasal congestion or sore throat [] Respiratory: Denies cough or shortness of breath [] Cardiovascular: Reports chest pain; denies palpitations GI: Denies abdominal pain, nausea, vomiting, or diarrhea [] : Denies dysuria or hematuria [] Musculoskeletal: Denies back pain or joint pain [] Integument: Denies rash or skin lesions [] Neurologic: Denies headache, focal weakness or sensory changes; reports lightheadedness Complete systems were reviewed and found to be within normal limits, except as documented in this note. Current Medications Current Medications Current Medications Medications (Trade) Dose Ordered Sig/Jl Start Time Stop Time Status Last Admin Dose Admin Aspirin (Raj Aspirin) 325 mg 1X ONCE 06/21/18 13:15 06/21/18 13:16 DC 06/21/18 13:17 325 MG Sodium Chloride 1,000 ml @ 1,000 mls/hr 1X ONCE 06/21/18 13:15 06/21/18 14:14 DC 06/21/18 13:17 1,000 MLS/HR Allergies Allergies Allergies Coded Allergies Type Severity Reaction Last Updated Verified mexiletine Allergy Severe 07/27/17 Yes Cephalosporins Allergy Intermediate itching and swelling 07/27/17 Yes amoxicillin Allergy Intermediate 07/27/17 Yes cefazolin Allergy Intermediate 07/27/17 Yes cephalexin Allergy Intermediate 07/27/17 Yes clavulanic acid Allergy Intermediate 1/8/18 Yes Physical Exam Physical Exam Constitutional: Well developed, well nourished, non-toxic appearance. [] HENT: Normocephalic, atraumatic, oropharynx moist Eyes: PERRL, EOMI, conjunctiva normal, no discharge. [] Neck: Normal range of motion, no tenderness, supple, no meningeal signs Cardiovascular: Heart rate regular rhythm, no murmur [] Lungs & Thorax: Bilateral breath sounds clear to auscultation [] Abdomen: Soft, no tenderness Skin: Warm, dry, no erythema, no rash. [] Extremities: No tenderness, ROM intact Neurologic: Alert and oriented X 3, normal motor function, normal sensory function, no focal deficits noted. [] Psychologic: Affect normal, judgement normal, mood normal. [] Current Patient Data Vital Signs Vital Signs Date Time Temp Pulse Resp B/P (MAP) Pulse Ox O2 Delivery O2 Flow Rate FiO2 06/21/18 14:00 60 16 126/71 (89) 97 Room Air 06/21/18 12:30 98.6 98.6 Lab Values Laboratory Tests Test 06/21/18 12:39 White Blood Count 6.8 x10^3/uL (4.0-11.0) Red Blood Count 3.79 x10^6/uL (4.30-5.70) L Hemoglobin 12.8 g/dL (13.0-17.5) L Hematocrit 37.0 % (39.0-53.0) L Mean Corpuscular Volume 98 fL (79-100) Mean Corpuscular Hemoglobin 34 pg (25-35) Mean Corpuscular Hemoglobin Concent 35 g/dL (31-37) Red Cell Distribution Width 12.6 % (11.5-14.5) Platelet Count 429 x10^3/uL (140-400) H Neutrophils (%) (Auto) 68 % (31-73) Lymphocytes (%) (Auto) 19 % (24-48) L Monocytes (%) (Auto) 9 % (0-9) Eosinophils (%) (Auto) 2 % (0-3) Basophils (%) (Auto) 1 % (0-3) Neutrophils # (Auto) 4.6 x10^3uL (1.8-7.7) Lymphocytes # (Auto) 1.3 x10^3/uL (1.0-4.8) Monocytes # (Auto) 0.6 x10^3/uL (0.0-1.1) Eosinophils # (Auto) 0.1 x10^3/uL (0.0-0.7) Basophils # (Auto) 0.1 x10^3/uL (0.0-0.2) Segmented Neutrophils % 60 % (35-66) Band Neutrophils % 5 % (0-9) Lymphocytes % 22 % (24-48) L Monocytes % 10 % (0-10) Eosinophils % 2 % (0-5) Metamyelocytes % 1 % (0-0) H Platelet Estimate Increased (ADEQUATE) Prothrombin Time 13.3 SEC (11.7-14.0) Prothrombin Time INR 1.1 (0.8-1.1) Sodium Level 139 mmol/L (136-145) Potassium Level 4.3 mmol/L (3.5-5.1) Chloride Level 102 mmol/L (98-107) Carbon Dioxide Level 29 mmol/L (21-32) Anion Gap 8 (6-14) Blood Urea Nitrogen 17 mg/dL (8-26) Creatinine 1.2 mg/dL (0.7-1.3) Estimated GFR (Cockcroft-Gault) 58.7 BUN/Creatinine Ratio 14 (6-20) Glucose Level 138 mg/dL (70-99) H Calcium Level 9.5 mg/dL (8.5-10.1) Magnesium Level 2.1 mg/dL (1.8-2.4) Total Bilirubin 0.5 mg/dL (0.2-1.0) Aspartate Amino Transferase (AST) 21 U/L (15-37) Alanine Aminotransferase (ALT) 30 U/L (16-63) Alkaline Phosphatase 62 U/L (46-116) Creatine Kinase 87 U/L (39-308) Creatine Kinase MB (Mass) 1.0 ng/mL (0.0-3.6) Creatine Kinase MB Relative Index 1.1 % (0-4) Troponin I Quantitative < 0.017 ng/mL (0.000-0.055) HC-Shc-W-Type Natriuretic Peptide 333 pg/mL (0-449) Total Protein 7.7 g/dL (6.4-8.2) Albumin 3.8 g/dL (3.4-5.0) Albumin/Globulin Ratio 1.0 (1.0-1.7) Lipase 124 U/L (73-393) Laboratory Tests 06/21/18 12:39 Laboratory Tests 06/21/18 12:39 EKG EKG @1308 NSR at 60bpm, baseline artifact noted in V3, NO ST elevation., t wave inversion in III Radiology/Procedures Radiology/Procedures PROCEDURE: PORTABLE CHEST 1V Portable chest, 06/21/2018: HISTORY: Chest pain Comparison is made to a study from 06/11/2018. Active and inactive bilateral transvenous pacing leads remain in place. The ET tube and NG tube have been removed. The heart size and pulmonary vascularity are normal. A calcified granuloma is present in the left upper lobe. No acute infiltrate is seen. There is no evidence of pleural fluid. Moderate hypertrophic spurring is present in the spine. IMPRESSION: No acute cardiopulmonary abnormality is detected. Electronically signed by: Carlton Macedo MD (06/21/2018 1:40 PM) [facility] Course & Med Decision Making Course & Med Decision Making Pertinent Labs and Imaging studies reviewed. (See chart for details) Patient presents with history of present illness and physical exam concerning for near syncopal episode with report of defibrillation from the AICD. Patient recently admitted for similar with subsequent cardiac stenting. Patient neurologically intact. Labs obtained and posted chart. Troponin within normal limits. EKG stable. AICD interrogation performed without any finding of defibrillation. Patient requiring admission for further evaluation and treatment. Discussed with Dr. Gardiner (hospitalist) who is in agreement with admission. Dr. Gardiner request to place patient in Chest pain Obs,. Discussed findings and plan with patient and family, who acknowledge understanding and agreement. Dragon Disclaimer Dragon Disclaimer This electronic medical record was generated, in whole or in part, using a voice recognition dictation system. Departure Departure Impression: Primary Impression: Near syncope Additional Impressions: Encounter for interrogation of cardiac defibrillator Chest pain Disposition: ADMITTED INPATIENT (OBS CVC) Admitting Physician: Xie. Hernandez Condition: STABLE Referrals: SCOTT MCGOVERN MD (PCP) Problem Qualifiers Additional Impressions: Chest pain Chest pain type: unspecified Qualified Codes: R07.9 - Chest pain, unspecified JAKOB HAGER DO Jun 21, 2018 13:25
[2018-06-21 13:28] LABS: PROTHROMBIN TIME PATIENT 13.3 SEC (11.7-14.0)
[2018-06-21 13:29] LABS: CALCIUM 9.5 mg/dL (8.5-10.1); CREATININE 1.2 mg/dL (0.7-1.3); GFR 58.7; POTASSIUM 4.3 mmol/L (3.5-5.1)
[2018-06-21 13:36] LABS: ALBUMIN 3.8 g/dL (3.4-5.0); MAGNESIUM 2.1 mg/dL (1.8-2.4); TOTAL BILIRUBIN 0.5 mg/dL (0.2-1.0); TOTAL PROTEIN 7.7 g/dL (6.4-8.2)
--- NOTE | 2018-06-21 13:44 | RAD ---
Portable chest, 06/21/2018: HISTORY: Chest pain Comparison is made to a study from 06/11/2018. Active and inactive bilateral transvenous pacing leads remain in place. The ET tube and NG tube have been removed. The heart size and pulmonary vascularity are normal. A calcified granuloma is present in the left upper lobe. No acute infiltrate is seen. There is no evidence of pleural fluid. Moderate hypertrophic spurring is present in the spine. IMPRESSION: No acute cardiopulmonary abnormality is detected. Electronically signed by: Carlton Macedo MD (06/21/2018 1:40 PM) [facility]
[2018-06-21 14:10] LABS: % BANDS 5 % (0-9); % EOS 2 % (0-5); % LYMPHS 22 % (24-48); % METAS 1 % (0-0); % MONOS 10 % (0-10); % SEGS 60 % (35-66)
[2018-06-21 14:16] LABS: PLT ESTIMATE INCREASED (ADEQUATE)
[2018-06-21] MEDS ORDERED: ONDANSETRON PF 4 MG/2 ML VIAL. IV PRN (17:00)
[2018-06-21] MEDS ORDERED: DOCUSATE SODIUM 100 MG CAPSULE. PO PRN (17:00)
[2018-06-21] MEDS ORDERED: traMADol 50 MG TABLET PO PRN (17:00)
[2018-06-21] MEDS ORDERED: MORPHINE SULFATE 2 MG/ML VIAL. IV PRN (17:00)
[2018-06-21] MEDS ORDERED: oxyCODONE/APAP 5/325 1 TAB TABLET PO PRN (17:00)
[2018-06-21] MEDS ORDERED: ACETAMINOPHEN 325 MG TABLET. PO PRN (17:00)
--- NOTE | 2018-06-21 17:08 | PDOC1 ---
History and Physical Date of Admission Date of Admission 06/21/18 Identification/Chief Complaint Chief Complaint ICD go off Source Source: Chart review, Patient History of Present Illness History of Present Illness HPI 77-year-old male presents with report of lightheadedness and concerned that his AICD might have "gone off" at approximately 1100 today. PT Is a poor historian. 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 He actually was just dced here 1 week ago, got 1 stent at LAD. Today about 11am, he said he felt his ICD "gone off" again, for that he had some dizzyness, no chest pain, or sob. no fever, chills, N/V, diarrhea. ERP showed me the integration records from 06/18 and there is no arrythmia. Past Medical History Cardiovascular: CAD, HTN, Other Pulmonary: No pertinent hx GI: No pertinent hx Heme/Onc: No pertinent hx Hepatobiliary: No pertinent hx Psych: No pertinent hx Rheumatologic: No pertinent hx Infectious disease: No pertinent hx Renal/: No pertinent hx Endocrine: No pertinent hx Past Surgical History Past Surgical History: Other Family History Family History: Hypertension Social History Smoke: Quit ALCOHOL: rare Drugs: None Current Problem List Problem List Problems Medical Problems: (1) Chest pain Status: Acute (2) Encounter for interrogation of cardiac defibrillator Status: Acute (3) Near syncope Status: Acute Current Medications Current Medications Current Medications Medications (Trade) Dose Ordered Sig/Jl Start Time Stop Time Status Last Admin Dose Admin Aspirin (Raj Aspirin) 325 mg 1X ONCE 06/21/18 13:15 06/21/18 13:16 DC 06/21/18 13:17 325 MG Lorazepam (Ativan) 0.5 mg 1X ONCE 06/21/18 14:45 06/21/18 14:46 DC 06/21/18 14:37 0.5 MG Sodium Chloride 1,000 ml @ 1,000 mls/hr 1X ONCE 06/21/18 13:15 06/21/18 14:14 DC 06/21/18 13:17 1,000 MLS/HR Allergies Allergies Allergies Coded Allergies Type Severity Reaction Last Updated Verified mexiletine Allergy Severe 07/27/17 Yes Cephalosporins Allergy Intermediate itching and swelling 07/27/17 Yes amoxicillin Allergy Intermediate 07/27/17 Yes cefazolin Allergy Intermediate 07/27/17 Yes cephalexin Allergy Intermediate 07/27/17 Yes clavulanic acid Allergy Intermediate 07/27/17 Yes ROS Review of System CONSTITUTIONAL: No fever or chills EYES: No recent changes SKIN: No rash or itching CARDIOVASCULAR: No chest pain, syncope, palpitations, or edema RESPIRATORY: No SOB or cough GASTROINTESTINAL: No nausea, vomiting or abdominal pain NEUROLOGICAL: No headaches or weakness ENDOCRINE: No cold or heat intolerance GENITOURINARY: No urgency or frequency of urination MUSCULOSKELETAL: No back pain or joint pain LYMPHATICS: No enlarged lymph nodes PSYCHIATRIC: No anxiety or depression Physical Exam Physical Exam GEN.: No apparent distress. Alert and oriented. HEENT: Head is normocephalic, atraumatic NECK: Supple. LUNGS: Clear to auscultation. HEART: RRR, S1, S2 present. Peripheral pulses intact ABDOMEN: Soft, nontender. Positive bowel sounds. EXTREMITIES: Without any cyanosis. NEUROLOGIC: Normal speech, normal tone PSYCHIATRIC: Normal affect, normal mood. SKIN: No ulcerations Vitals Vitals Vital Signs Date Time Temp Pulse Resp B/P (MAP) Pulse Ox O2 Delivery O2 Flow Rate FiO2 06/21/18 15:00 60 18 115/63 (80) 97 Room Air 06/21/18 12:30 98.6 98.6 Labs Labs Laboratory Tests Test 06/21/18 12:39 White Blood Count 6.8 x10^3/uL (4.0-11.0) Red Blood Count 3.79 x10^6/uL (4.30-5.70) Hemoglobin 12.8 g/dL (13.0-17.5) Hematocrit 37.0 % (39.0-53.0) Mean Corpuscular Volume 98 fL (79-100) Mean Corpuscular Hemoglobin 34 pg (25-35) Mean Corpuscular Hemoglobin Concent 35 g/dL (31-37) Red Cell Distribution Width 12.6 % (11.5-14.5) Platelet Count 429 x10^3/uL (140-400) Neutrophils (%) (Auto) 68 % (31-73) Lymphocytes (%) (Auto) 19 % (24-48) Monocytes (%) (Auto) 9 % (0-9) Eosinophils (%) (Auto) 2 % (0-3) Basophils (%) (Auto) 1 % (0-3) Neutrophils # (Auto) 4.6 x10^3uL (1.8-7.7) Lymphocytes # (Auto) 1.3 x10^3/uL (1.0-4.8) Monocytes # (Auto) 0.6 x10^3/uL (0.0-1.1) Eosinophils # (Auto) 0.1 x10^3/uL (0.0-0.7) Basophils # (Auto) 0.1 x10^3/uL (0.0-0.2) Segmented Neutrophils % 60 % (35-66) Band Neutrophils % 5 % (0-9) Lymphocytes % 22 % (24-48) Monocytes % 10 % (0-10) Eosinophils % 2 % (0-5) Metamyelocytes % 1 % (0-0) Platelet Estimate Increased (ADEQUATE) Prothrombin Time 13.3 SEC (11.7-14.0) Prothromb Time International Ratio 1.1 (0.8-1.1) Sodium Level 139 mmol/L (136-145) Potassium Level 4.3 mmol/L (3.5-5.1) Chloride Level 102 mmol/L (98-107) Carbon Dioxide Level 29 mmol/L (21-32) Anion Gap 8 (6-14) Blood Urea Nitrogen 17 mg/dL (8-26) Creatinine 1.2 mg/dL (0.7-1.3) Estimated GFR (Cockcroft-Gault) 58.7 BUN/Creatinine Ratio 14 (6-20) Glucose Level 138 mg/dL (70-99) Calcium Level 9.5 mg/dL (8.5-10.1) Magnesium Level 2.1 mg/dL (1.8-2.4) Total Bilirubin 0.5 mg/dL (0.2-1.0) Aspartate Amino Transf (AST/SGOT) 21 U/L (15-37) Alanine Aminotransferase (ALT/SGPT) 30 U/L (16-63) Alkaline Phosphatase 62 U/L (46-116) Creatine Kinase 87 U/L (39-308) Creatine Kinase MB (Mass) 1.0 ng/mL (0.0-3.6) Creatine Kinase MB Relative Index 1.1 % (0-4) Troponin I Quantitative < 0.017 ng/mL (0.000-0.055) CR-And-N-Type Natriuretic Peptide 333 pg/mL (0-449) Total Protein 7.7 g/dL (6.4-8.2) Albumin 3.8 g/dL (3.4-5.0) Albumin/Globulin Ratio 1.0 (1.0-1.7) Lipase 124 U/L (73-393) Laboratory Tests Test 06/21/18 12:39 White Blood Count 6.8 x10^3/uL (4.0-11.0) Red Blood Count 3.79 x10^6/uL (4.30-5.70) Hemoglobin 12.8 g/dL (13.0-17.5) Hematocrit 37.0 % (39.0-53.0) Mean Corpuscular Volume 98 fL (79-100) Mean Corpuscular Hemoglobin 34 pg (25-35) Mean Corpuscular Hemoglobin Concent 35 g/dL (31-37) Red Cell Distribution Width 12.6 % (11.5-14.5) Platelet Count 429 x10^3/uL (140-400) Neutrophils (%) (Auto) 68 % (31-73) Lymphocytes (%) (Auto) 19 % (24-48) Monocytes (%) (Auto) 9 % (0-9) Eosinophils (%) (Auto) 2 % (0-3) Basophils (%) (Auto) 1 % (0-3) Neutrophils # (Auto) 4.6 x10^3uL (1.8-7.7) Lymphocytes # (Auto) 1.3 x10^3/uL (1.0-4.8) Monocytes # (Auto) 0.6 x10^3/uL (0.0-1.1) Eosinophils # (Auto) 0.1 x10^3/uL (0.0-0.7) Basophils # (Auto) 0.1 x10^3/uL (0.0-0.2) Segmented Neutrophils % 60 % (35-66) Band Neutrophils % 5 % (0-9) Lymphocytes % 22 % (24-48) Monocytes % 10 % (0-10) Eosinophils % 2 % (0-5) Metamyelocytes % 1 % (0-0) Platelet Estimate Increased (ADEQUATE) Prothrombin Time 13.3 SEC (11.7-14.0) Prothromb Time International Ratio 1.1 (0.8-1.1) Sodium Level 139 mmol/L (136-145) Potassium Level 4.3 mmol/L (3.5-5.1) Chloride Level 102 mmol/L (98-107) Carbon Dioxide Level 29 mmol/L (21-32) Anion Gap 8 (6-14) Blood Urea Nitrogen 17 mg/dL (8-26) Creatinine 1.2 mg/dL (0.7-1.3) Estimated GFR (Cockcroft-Gault) 58.7 BUN/Creatinine Ratio 14 (6-20) Glucose Level 138 mg/dL (70-99) Calcium Level 9.5 mg/dL (8.5-10.1) Magnesium Level 2.1 mg/dL (1.8-2.4) Total Bilirubin 0.5 mg/dL (0.2-1.0) Aspartate Amino Transf (AST/SGOT) 21 U/L (15-37) Alanine Aminotransferase (ALT/SGPT) 30 U/L (16-63) Alkaline Phosphatase 62 U/L (46-116) Creatine Kinase 87 U/L (39-308) Creatine Kinase MB (Mass) 1.0 ng/mL (0.0-3.6) Creatine Kinase MB Relative Index 1.1 % (0-4) Troponin I Quantitative < 0.017 ng/mL (0.000-0.055) VS-Rza-D-Type Natriuretic Peptide 333 pg/mL (0-449) Total Protein 7.7 g/dL (6.4-8.2) Albumin 3.8 g/dL (3.4-5.0) Albumin/Globulin Ratio 1.0 (1.0-1.7) Lipase 124 U/L (73-393) VTE Prophylaxis Ordered VTE Prophylaxis Devices: Yes VTE Pharmacological Prophylaxi: Yes Assessment/Plan Assessment/Plan dizzyness with possible ICD shock recent CAD s/p PCI 1 stent at LAD IDOpathic ventricular dysrythmia s/p ICD PPM 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 ISATU GONGORA MD Jun 21, 2018 17:08
[2018-06-21] MEDS ORDERED: ENOXAPARIN 40 MG/0.4 ML SYRINGE. SQ SCH (18:00)
[2018-06-21 19:00] VITALS: BP 106/63
[2018-06-21] MEDS: AMIODARONE HCL 200 MG TABLET. PO SCH (21:00)
[2018-06-21] MEDS ORDERED: ASPIRIN ENTERIC COATED 81 MG TABLET.DR. PO SCH (21:00)
[2018-06-21] MEDS: MAGNESIUM OXIDE 400 MG TABLET PO SCH (21:47)
[2018-06-21] MEDS: ALPRAZolam 0.25 MG TABLET PO PRN (21:50)
[2018-06-21] MEDS: TICAGRELOR 90 MG TABLET. PO SCH (21:52)
[2018-06-21 23:00] VITALS: BP 137/66
[2018-06-22 05:21] LABS: BILIRUBIN,URINE NEGATIVE (NEG); CLARITY,URINE CLEAR; COLOR,URINE YELLOW; NITRITE,URINE NEGATIVE (NEG); PROTEIN,URINE NEGATIVE (NEG-TRACE); UROBILINOGEN,URINE 0.2 mg/dL (0.2 mg/dL)
[2018-06-22 05:26] LABS: BACTERIA,URINE 0 /HPF (0-FEW); RBC,URINE 0 /HPF (0-2); SQUAMOUS EPITHELIAL CELL,UR OCC /LPF; WBC,URINE OCC /HPF (0-4)
[2018-06-22] MEDS ORDERED: LEVOTHYROXINE 125 MCG TABLET PO SCH (06:00)
[2018-06-22 06:19] LABS: BASO # 0.1 x10^3/uL (0.0-0.2); BASO % 1 % (0-3); EOS # 0.2 x10^3/uL (0.0-0.7); EOS % 3 % (0-3); HEMATOCRIT 34.3 % (39.0-53.0); HEMOGLOBIN 11.9 g/dL (13.0-17.5); LYMPH # 1.6 x10^3/uL (1.0-4.8); LYMPH % 26 % (24-48); MEAN CORPUSCULAR HEMOGLOBIN 34 pg (25-35); MEAN CORPUSCULAR HGB CONC 35 g/dL (31-37); MEAN CORPUSCULAR VOLUME 98 fL (79-100); MONO # 0.6 x10^3/uL (0.0-1.1); MONO % 11 % (0-9); NEUT # 3.6 x10^3uL (1.8-7.7); NEUT % 59 % (31-73); PLATELET COUNT 373 x10^3/uL (140-400); RED BLOOD COUNT 3.51 x10^6/uL (4.30-5.70); RED CELL DISTRIBUTION WIDTH 12.6 % (11.5-14.5)
[2018-06-22 06:56] LABS: CALCIUM 8.8 mg/dL (8.5-10.1); CREATININE 1.1 mg/dL (0.7-1.3); GFR 64.9; POTASSIUM 4.4 mmol/L (3.5-5.1)
[2018-06-22 07:00] VITALS: BP 132/60
[2018-06-22] MEDS ORDERED: POTASSIUM CHLORIDE 20 MEQ TABLET.ER. PO SCH (08:00)
--- NOTE | 2018-06-22 08:08 | EKG ---
[facility] [address] [place] [address] Test Date: 2018-06-22 Test Time: 06:52:57 Pat Name: SALLY TY Department: Room: Gender: M Splunk Developer: LESLEY : 1940 Requested By: JAKOB HAGER Order Number: [id number] Reading MD: Measurements Intervals [place] Rate: 61 P: 56 RI: 190 QRS: -28 QRSD: 110 T: 29 QT: 426 QTc: 435 Interpretive Statements SINUS RHYTHM LEFTWARD AXIS QRS(T) CONTOUR ABNORMALITY CONSIDER ANTEROSEPTAL MYOCARDIAL DAMAGE POSSIBLY ABNORMAL ECG RI6.01 No previous ECG available for comparison
[2018-06-22] MEDS ORDERED: ASCORBIC ACID 500 MG TABLET PO SCH (09:00)
[2018-06-22] MEDS ORDERED: PRASTERONE PO SCH (09:00)
[2018-06-22] MEDS ORDERED: METOPROLOL SUCC 24HR ER 100 MG TAB.ER.24H. PO SCH (09:00)
[2018-06-22] MEDS ORDERED: NIACIN ER 500 MG TABLET.ER PO SCH (09:00)
[2018-06-22] MEDS ORDERED: VITAMIN B COMPLEX TABLET. PO SCH (09:00)
[2018-06-22] MEDS ORDERED: CHOLECALCIFEROL (VITAMIN D3) 5,000 UNIT CAPSULE PO SCH (09:00)
[2018-06-22] MEDS ORDERED: OMEGA-3 FATTY ACIDS/FISH OIL 1,000 MG CAPSULE. PO SCH (09:00)
[2018-06-22] MEDS ORDERED: CALCIUM CARBONATE 500 MG TABLET PO SCH (09:00)
--- NOTE | 2018-06-22 09:36 | PDOC ---
CARDIO Progress Notes Date and Time Date of Service 06/22/2018 Time of Evaluation 0900 Subjective Subjective: No Chest Pain, No shortness of breath Vitals Vitals Vital Signs Date Time Temp Pulse Resp B/P (MAP) Pulse Ox O2 Delivery O2 Flow Rate FiO2 06/22/18 03:00 63 18 98 Room Air 06/21/18 23:00 97.8 97.8 Weight Weight [ ] Input and Output Intake and Output Intake and Output 06/22/18 07:00 Output Total 900 ml Balance -900 ml Output Urine Total 900 ml # Voids 2 Laboratory Labs Laboratory Tests Test 06/21/18 12:39 06/21/18 18:00 06/22/18 00:15 06/22/18 04:43 White Blood Count 6.8 x10^3/uL (4.0-11.0) Red Blood Count 3.79 x10^6/uL (4.30-5.70) Hemoglobin 12.8 g/dL (13.0-17.5) Hematocrit 37.0 % (39.0-53.0) Mean Corpuscular Volume 98 fL (79-100) Mean Corpuscular Hemoglobin 34 pg (25-35) Mean Corpuscular Hemoglobin Concent 35 g/dL (31-37) Red Cell Distribution Width 12.6 % (11.5-14.5) Platelet Count 429 x10^3/uL (140-400) Neutrophils (%) (Auto) 68 % (31-73) Lymphocytes (%) (Auto) 19 % (24-48) Monocytes (%) (Auto) 9 % (0-9) Eosinophils (%) (Auto) 2 % (0-3) Basophils (%) (Auto) 1 % (0-3) Neutrophils # (Auto) 4.6 x10^3uL (1.8-7.7) Lymphocytes # (Auto) 1.3 x10^3/uL (1.0-4.8) Monocytes # (Auto) 0.6 x10^3/uL (0.0-1.1) Eosinophils # (Auto) 0.1 x10^3/uL (0.0-0.7) Basophils # (Auto) 0.1 x10^3/uL (0.0-0.2) Segmented Neutrophils % 60 % (35-66) Band Neutrophils % 5 % (0-9) Lymphocytes % 22 % (24-48) Monocytes % 10 % (0-10) Eosinophils % 2 % (0-5) Metamyelocytes % 1 % (0-0) Platelet Estimate Increased (ADEQUATE) Prothrombin Time 13.3 SEC (11.7-14.0) Prothromb Time International Ratio 1.1 (0.8-1.1) Sodium Level 139 mmol/L (136-145) Potassium Level 4.3 mmol/L (3.5-5.1) Chloride Level 102 mmol/L (98-107) Carbon Dioxide Level 29 mmol/L (21-32) Anion Gap 8 (6-14) Blood Urea Nitrogen 17 mg/dL (8-26) Creatinine 1.2 mg/dL (0.7-1.3) Estimated GFR (Cockcroft-Gault) 58.7 BUN/Creatinine Ratio 14 (6-20) Glucose Level 138 mg/dL (70-99) Calcium Level 9.5 mg/dL (8.5-10.1) Magnesium Level 2.1 mg/dL (1.8-2.4) Total Bilirubin 0.5 mg/dL (0.2-1.0) Aspartate Amino Transf (AST/SGOT) 21 U/L (15-37) Alanine Aminotransferase (ALT/SGPT) 30 U/L (16-63) Alkaline Phosphatase 62 U/L (46-116) Creatine Kinase 87 U/L (39-308) Creatine Kinase MB (Mass) 1.0 ng/mL (0.0-3.6) Creatine Kinase MB Relative Index 1.1 % (0-4) Troponin I Quantitative < 0.017 ng/mL (0.000-0.055) < 0.017 ng/mL (0.000-0.055) < 0.017 ng/mL (0.000-0.055) VU-Cva-H-Type Natriuretic Peptide 333 pg/mL (0-449) Total Protein 7.7 g/dL (6.4-8.2) Albumin 3.8 g/dL (3.4-5.0) Albumin/Globulin Ratio 1.0 (1.0-1.7) Lipase 124 U/L (73-393) Urine Collection Type Unknown Urine Color Yellow Urine Clarity Clear Urine pH 7.0 Urine Specific [place] 1.015 Urine Protein Negative mg/dL (NEG-TRACE) Urine Glucose (UA) Negative mg/dL (NEG) Urine Ketones (Stick) Negative mg/dL (NEG) Urine Blood Negative (NEG) Urine Nitrite Negative (NEG) Urine Bilirubin Negative (NEG) Urine Urobilinogen Dipstick 0.2 mg/dL (0.2 mg/dL) Urine Leukocyte Esterase Negative (NEG) Urine RBC 0 /HPF (0-2) Urine WBC Occ /HPF (0-4) Urine Squamous Epithelial Cells Occ /LPF Urine Bacteria 0 /HPF (0-FEW) Test 06/22/18 05:50 White Blood Count 6.0 x10^3/uL (4.0-11.0) Red Blood Count 3.51 x10^6/uL (4.30-5.70) Hemoglobin 11.9 g/dL (13.0-17.5) Hematocrit 34.3 % (39.0-53.0) Mean Corpuscular Volume 98 fL (79-100) Mean Corpuscular Hemoglobin 34 pg (25-35) Mean Corpuscular Hemoglobin Concent 35 g/dL (31-37) Red Cell Distribution Width 12.6 % (11.5-14.5) Platelet Count 373 x10^3/uL (140-400) Neutrophils (%) (Auto) 59 % (31-73) Lymphocytes (%) (Auto) 26 % (24-48) Monocytes (%) (Auto) 11 % (0-9) Eosinophils (%) (Auto) 3 % (0-3) Basophils (%) (Auto) 1 % (0-3) Neutrophils # (Auto) 3.6 x10^3uL (1.8-7.7) Lymphocytes # (Auto) 1.6 x10^3/uL (1.0-4.8) Monocytes # (Auto) 0.6 x10^3/uL (0.0-1.1) Eosinophils # (Auto) 0.2 x10^3/uL (0.0-0.7) Basophils # (Auto) 0.1 x10^3/uL (0.0-0.2) Sodium Level 143 mmol/L (136-145) Potassium Level 4.4 mmol/L (3.5-5.1) Chloride Level 107 mmol/L (98-107) Carbon Dioxide Level 27 mmol/L (21-32) Anion Gap 9 (6-14) Blood Urea Nitrogen 17 mg/dL (8-26) Creatinine 1.1 mg/dL (0.7-1.3) Estimated GFR (Cockcroft-Gault) 64.9 Glucose Level 104 mg/dL (70-99) Calcium Level 8.8 mg/dL (8.5-10.1) Troponin I Quantitative < 0.017 ng/mL (0.000-0.055) Triglycerides Level 97 mg/dL (0-150) Cholesterol Level 121 mg/dL (0-200) LDL Cholesterol, Calculated 62 mg/dL (0-100) VLDL Cholesterol, Calculated 19 mg/dL (0-40) Non-HDL Cholesterol Calculated 81 mg/dL (0-129) HDL Cholesterol 40 mg/dL (40-60) Cholesterol/HDL Ratio 3.0 Physical Exam HEENT: Neck Supple W Full Motion Chest: Symmetric LUNGS: Clear to Auscultation Heart: S1S2, RRR (SR) Abdomen: Soft N/T Extremities: No Edema, No Calf Tenderness Neurology: alert, oriented, follow commands Assessment Assessment Reason for consult: eval of AICD, CP, near syncope This is a pleasant 77 yo male admitted for complains of lightheadedness and anxiety Yesterday morning he flet that he was going to get shocked again and felt lightheaded and anxious about it. No chest pain per se but was hyperventilating. Denies any SOA or CP after his anxiety was relieved and his xanax from last night helped. Apparently he was given Rx for his anxiety and he has not taken it and trying to do without it. He was recently treated for CAD and VF. He was released on 06/14/2018. He had multiple appropriate shocks from his AICD at that time and was noted with significant lesion to his LAD per C and PCI/GABBY was was done. He was placed on amiodarone at that time as well. He follows regularly with [facility] cardiology/EP group. Anxiety: per PCP Presyncope: vasovagal due to anxiety Atypical chest pain: related to anxiety Hx of CAD and VT storm Recent PCI/GABBY to LAD, clinically stable. AICD with [employer] with no significant ectopies and recent shock treatment per interrogation, normal device. Arrhythmia: SR with PVCs. Recommendations 1. BP well controlled, no rhythm ectopies. Xanax per PCP, will likely need SSRI. 2. Continue with DAPT and secondary prevention measures and amiodarone 3. Follow up with [facility] cardiology/EP team as scheduled. 4. Check Mg and replace as warranted. EASTON MADRID APRN Jun 22, 2018 09:36
[2018-06-22] MEDS: ALPRAZolam 0.25 MG TABLET PO PRN (09:47)
[2018-06-22] MEDS: MAGNESIUM OXIDE 400 MG TABLET PO SCH (09:47)
[2018-06-22] MEDS: AMIODARONE HCL 200 MG TABLET. PO SCH (09:47)
[2018-06-22] MEDS: TICAGRELOR 90 MG TABLET. PO SCH (09:48)
--- NOTE | 2018-06-22 10:58 | PDOC ---
PROGRESS NOTES Chief Complaint Chief Complaint Near Syncope Evaluation of AICD Anxiety History of Present Illness History of Present Illness Pt was seen and examined at bedside in ICU today. He is a pleasant man who is able to carry on a conversation well and was discharged here on 06/14/2018. He admits that the "problems" with his ICD were "all in his head" and that he feels "extremely anxious." He had no overnight events and no new complaints. Cardiology is following. Vitals Vitals Vital Signs Date Time Temp Pulse Resp B/P (MAP) Pulse Ox O2 Delivery O2 Flow Rate FiO2 06/22/18 09:52 63 132/70 06/22/18 08:00 Room Air 06/22/18 07:00 97.5 18 97 97.5 Physical Exam General: Alert, Oriented X3, Cooperative, Other (Visibily anxious) Heart: Regular rate, Normal S1, Normal S2, No murmurs, Other (distant heart sounds) Lungs: Clear, Other (no crackles or wheezes) Abdomen: Normal bowel sounds, Soft Extremities: No clubbing, No cyanosis, No edema, No tenderness/swelling Skin: No breakdown, No significant lesion Labs LABS Laboratory Tests Test 06/21/18 12:39 06/21/18 18:00 06/22/18 00:15 06/22/18 04:43 White Blood Count 6.8 x10^3/uL (4.0-11.0) Red Blood Count 3.79 x10^6/uL (4.30-5.70) Hemoglobin 12.8 g/dL (13.0-17.5) Hematocrit 37.0 % (39.0-53.0) Mean Corpuscular Volume 98 fL (79-100) Mean Corpuscular Hemoglobin 34 pg (25-35) Mean Corpuscular Hemoglobin Concent 35 g/dL (31-37) Red Cell Distribution Width 12.6 % (11.5-14.5) Platelet Count 429 x10^3/uL (140-400) Neutrophils (%) (Auto) 68 % (31-73) Lymphocytes (%) (Auto) 19 % (24-48) Monocytes (%) (Auto) 9 % (0-9) Eosinophils (%) (Auto) 2 % (0-3) Basophils (%) (Auto) 1 % (0-3) Neutrophils # (Auto) 4.6 x10^3uL (1.8-7.7) Lymphocytes # (Auto) 1.3 x10^3/uL (1.0-4.8) Monocytes # (Auto) 0.6 x10^3/uL (0.0-1.1) Eosinophils # (Auto) 0.1 x10^3/uL (0.0-0.7) Basophils # (Auto) 0.1 x10^3/uL (0.0-0.2) Segmented Neutrophils % 60 % (35-66) Band Neutrophils % 5 % (0-9) Lymphocytes % 22 % (24-48) Monocytes % 10 % (0-10) Eosinophils % 2 % (0-5) Metamyelocytes % 1 % (0-0) Platelet Estimate Increased (ADEQUATE) Prothrombin Time 13.3 SEC (11.7-14.0) Prothromb Time International Ratio 1.1 (0.8-1.1) Sodium Level 139 mmol/L (136-145) Potassium Level 4.3 mmol/L (3.5-5.1) Chloride Level 102 mmol/L (98-107) Carbon Dioxide Level 29 mmol/L (21-32) Anion Gap 8 (6-14) Blood Urea Nitrogen 17 mg/dL (8-26) Creatinine 1.2 mg/dL (0.7-1.3) Estimated GFR (Cockcroft-Gault) 58.7 BUN/Creatinine Ratio 14 (6-20) Glucose Level 138 mg/dL (70-99) Calcium Level 9.5 mg/dL (8.5-10.1) Magnesium Level 2.1 mg/dL (1.8-2.4) Total Bilirubin 0.5 mg/dL (0.2-1.0) Aspartate Amino Transf (AST/SGOT) 21 U/L (15-37) Alanine Aminotransferase (ALT/SGPT) 30 U/L (16-63) Alkaline Phosphatase 62 U/L (46-116) Creatine Kinase 87 U/L (39-308) Creatine Kinase MB (Mass) 1.0 ng/mL (0.0-3.6) Creatine Kinase MB Relative Index 1.1 % (0-4) Troponin I Quantitative < 0.017 ng/mL (0.000-0.055) < 0.017 ng/mL (0.000-0.055) < 0.017 ng/mL (0.000-0.055) JV-Eil-K-Type Natriuretic Peptide 333 pg/mL (0-449) Total Protein 7.7 g/dL (6.4-8.2) Albumin 3.8 g/dL (3.4-5.0) Albumin/Globulin Ratio 1.0 (1.0-1.7) Lipase 124 U/L (73-393) Urine Collection Type Unknown Urine Color Yellow Urine Clarity Clear Urine pH 7.0 Urine Specific [place] 1.015 Urine Protein Negative mg/dL (NEG-TRACE) Urine Glucose (UA) Negative mg/dL (NEG) Urine Ketones (Stick) Negative mg/dL (NEG) Urine Blood Negative (NEG) Urine Nitrite Negative (NEG) Urine Bilirubin Negative (NEG) Urine Urobilinogen Dipstick 0.2 mg/dL (0.2 mg/dL) Urine Leukocyte Esterase Negative (NEG) Urine RBC 0 /HPF (0-2) Urine WBC Occ /HPF (0-4) Urine Squamous Epithelial Cells Occ /LPF Urine Bacteria 0 /HPF (0-FEW) Test 06/22/18 05:50 White Blood Count 6.0 x10^3/uL (4.0-11.0) Red Blood Count 3.51 x10^6/uL (4.30-5.70) Hemoglobin 11.9 g/dL (13.0-17.5) Hematocrit 34.3 % (39.0-53.0) Mean Corpuscular Volume 98 fL (79-100) Mean Corpuscular Hemoglobin 34 pg (25-35) Mean Corpuscular Hemoglobin Concent 35 g/dL (31-37) Red Cell Distribution Width 12.6 % (11.5-14.5) Platelet Count 373 x10^3/uL (140-400) Neutrophils (%) (Auto) 59 % (31-73) Lymphocytes (%) (Auto) 26 % (24-48) Monocytes (%) (Auto) 11 % (0-9) Eosinophils (%) (Auto) 3 % (0-3) Basophils (%) (Auto) 1 % (0-3) Neutrophils # (Auto) 3.6 x10^3uL (1.8-7.7) Lymphocytes # (Auto) 1.6 x10^3/uL (1.0-4.8) Monocytes # (Auto) 0.6 x10^3/uL (0.0-1.1) Eosinophils # (Auto) 0.2 x10^3/uL (0.0-0.7) Basophils # (Auto) 0.1 x10^3/uL (0.0-0.2) Sodium Level 143 mmol/L (136-145) Potassium Level 4.4 mmol/L (3.5-5.1) Chloride Level 107 mmol/L (98-107) Carbon Dioxide Level 27 mmol/L (21-32) Anion Gap 9 (6-14) Blood Urea Nitrogen 17 mg/dL (8-26) Creatinine 1.1 mg/dL (0.7-1.3) Estimated GFR (Cockcroft-Gault) 64.9 Glucose Level 104 mg/dL (70-99) Calcium Level 8.8 mg/dL (8.5-10.1) Magnesium Level 2.2 mg/dL (1.8-2.4) Troponin I Quantitative < 0.017 ng/mL (0.000-0.055) Triglycerides Level 97 mg/dL (0-150) Cholesterol Level 121 mg/dL (0-200) LDL Cholesterol, Calculated 62 mg/dL (0-100) VLDL Cholesterol, Calculated 19 mg/dL (0-40) Non-HDL Cholesterol Calculated 81 mg/dL (0-129) HDL Cholesterol 40 mg/dL (40-60) Cholesterol/HDL Ratio 3.0 Review of Systems Review of Systems PULM: No sob, cough GENERAL: No unexpected wt loss, fever/chills GI: No abd pain, n/v Assessment and Plan Assessmemt and Plan ASSESSMENT: Near Syncope Evaluation of AICD Anxiety PLAN: ICU Monitoring Subspecialty input appreciated Home meds Consult PT/OT Recheck labs in AM F/U with pcp in 2 weeks regarding anxiety management DVT Prophylaxis Comment Review of Relevant I have reviewed the following items guille (where applicable) has been applied. Labs Laboratory Tests Test 06/21/18 12:39 06/21/18 18:00 06/22/18 00:15 06/22/18 04:43 White Blood Count 6.8 x10^3/uL (4.0-11.0) Red Blood Count 3.79 x10^6/uL (4.30-5.70) Hemoglobin 12.8 g/dL (13.0-17.5) Hematocrit 37.0 % (39.0-53.0) Mean Corpuscular Volume 98 fL (79-100) Mean Corpuscular Hemoglobin 34 pg (25-35) Mean Corpuscular Hemoglobin Concent 35 g/dL (31-37) Red Cell Distribution Width 12.6 % (11.5-14.5) Platelet Count 429 x10^3/uL (140-400) Neutrophils (%) (Auto) 68 % (31-73) Lymphocytes (%) (Auto) 19 % (24-48) Monocytes (%) (Auto) 9 % (0-9) Eosinophils (%) (Auto) 2 % (0-3) Basophils (%) (Auto) 1 % (0-3) Neutrophils # (Auto) 4.6 x10^3uL (1.8-7.7) Lymphocytes # (Auto) 1.3 x10^3/uL (1.0-4.8) Monocytes # (Auto) 0.6 x10^3/uL (0.0-1.1) Eosinophils # (Auto) 0.1 x10^3/uL (0.0-0.7) Basophils # (Auto) 0.1 x10^3/uL (0.0-0.2) Segmented Neutrophils % 60 % (35-66) Band Neutrophils % 5 % (0-9) Lymphocytes % 22 % (24-48) Monocytes % 10 % (0-10) Eosinophils % 2 % (0-5) Metamyelocytes % 1 % (0-0) Platelet Estimate Increased (ADEQUATE) Prothrombin Time 13.3 SEC (11.7-14.0) Prothromb Time International Ratio 1.1 (0.8-1.1) Sodium Level 139 mmol/L (136-145) Potassium Level 4.3 mmol/L (3.5-5.1) Chloride Level 102 mmol/L (98-107) Carbon Dioxide Level 29 mmol/L (21-32) Anion Gap 8 (6-14) Blood Urea Nitrogen 17 mg/dL (8-26) Creatinine 1.2 mg/dL (0.7-1.3) Estimated GFR (Cockcroft-Gault) 58.7 BUN/Creatinine Ratio 14 (6-20) Glucose Level 138 mg/dL (70-99) Calcium Level 9.5 mg/dL (8.5-10.1) Magnesium Level 2.1 mg/dL (1.8-2.4) Total Bilirubin 0.5 mg/dL (0.2-1.0) Aspartate Amino Transf (AST/SGOT) 21 U/L (15-37) Alanine Aminotransferase (ALT/SGPT) 30 U/L (16-63) Alkaline Phosphatase 62 U/L (46-116) Creatine Kinase 87 U/L (39-308) Creatine Kinase MB (Mass) 1.0 ng/mL (0.0-3.6) Creatine Kinase MB Relative Index 1.1 % (0-4) Troponin I Quantitative < 0.017 ng/mL (0.000-0.055) < 0.017 ng/mL (0.000-0.055) < 0.017 ng/mL (0.000-0.055) PK-Fpu-Y-Type Natriuretic Peptide 333 pg/mL (0-449) Total Protein 7.7 g/dL (6.4-8.2) Albumin 3.8 g/dL (3.4-5.0) Albumin/Globulin Ratio 1.0 (1.0-1.7) Lipase 124 U/L (73-393) Urine Collection Type Unknown Urine Color Yellow Urine Clarity Clear Urine pH 7.0 Urine Specific [place] 1.015 Urine Protein Negative mg/dL (NEG-TRACE) Urine Glucose (UA) Negative mg/dL (NEG) Urine Ketones (Stick) Negative mg/dL (NEG) Urine Blood Negative (NEG) Urine Nitrite Negative (NEG) Urine Bilirubin Negative (NEG) Urine Urobilinogen Dipstick 0.2 mg/dL (0.2 mg/dL) Urine Leukocyte Esterase Negative (NEG) Urine RBC 0 /HPF (0-2) Urine WBC Occ /HPF (0-4) Urine Squamous Epithelial Cells Occ /LPF Urine Bacteria 0 /HPF (0-FEW) Test 06/22/18 05:50 White Blood Count 6.0 x10^3/uL (4.0-11.0) Red Blood Count 3.51 x10^6/uL (4.30-5.70) Hemoglobin 11.9 g/dL (13.0-17.5) Hematocrit 34.3 % (39.0-53.0) Mean Corpuscular Volume 98 fL (79-100) Mean Corpuscular Hemoglobin 34 pg (25-35) Mean Corpuscular Hemoglobin Concent 35 g/dL (31-37) Red Cell Distribution Width 12.6 % (11.5-14.5) Platelet Count 373 x10^3/uL (140-400) Neutrophils (%) (Auto) 59 % (31-73) Lymphocytes (%) (Auto) 26 % (24-48) Monocytes (%) (Auto) 11 % (0-9) Eosinophils (%) (Auto) 3 % (0-3) Basophils (%) (Auto) 1 % (0-3) Neutrophils # (Auto) 3.6 x10^3uL (1.8-7.7) Lymphocytes # (Auto) 1.6 x10^3/uL (1.0-4.8) Monocytes # (Auto) 0.6 x10^3/uL (0.0-1.1) Eosinophils # (Auto) 0.2 x10^3/uL (0.0-0.7) Basophils # (Auto) 0.1 x10^3/uL (0.0-0.2) Sodium Level 143 mmol/L (136-145) Potassium Level 4.4 mmol/L (3.5-5.1) Chloride Level 107 mmol/L (98-107) Carbon Dioxide Level 27 mmol/L (21-32) Anion Gap 9 (6-14) Blood Urea Nitrogen 17 mg/dL (8-26) Creatinine 1.1 mg/dL (0.7-1.3) Estimated GFR (Cockcroft-Gault) 64.9 Glucose Level 104 mg/dL (70-99) Calcium Level 8.8 mg/dL (8.5-10.1) Magnesium Level 2.2 mg/dL (1.8-2.4) Troponin I Quantitative < 0.017 ng/mL (0.000-0.055) Triglycerides Level 97 mg/dL (0-150) Cholesterol Level 121 mg/dL (0-200) LDL Cholesterol, Calculated 62 mg/dL (0-100) VLDL Cholesterol, Calculated 19 mg/dL (0-40) Non-HDL Cholesterol Calculated 81 mg/dL (0-129) HDL Cholesterol 40 mg/dL (40-60) Cholesterol/HDL Ratio 3.0 Laboratory Tests Test 06/21/18 12:39 06/21/18 18:00 06/22/18 00:15 06/22/18 04:43 White Blood Count 6.8 x10^3/uL (4.0-11.0) Red Blood Count 3.79 x10^6/uL (4.30-5.70) Hemoglobin 12.8 g/dL (13.0-17.5) Hematocrit 37.0 % (39.0-53.0) Mean Corpuscular Volume 98 fL (79-100) Mean Corpuscular Hemoglobin 34 pg (25-35) Mean Corpuscular Hemoglobin Concent 35 g/dL (31-37) Red Cell Distribution Width 12.6 % (11.5-14.5) Platelet Count 429 x10^3/uL (140-400) Neutrophils (%) (Auto) 68 % (31-73) Lymphocytes (%) (Auto) 19 % (24-48) Monocytes (%) (Auto) 9 % (0-9) Eosinophils (%) (Auto) 2 % (0-3) Basophils (%) (Auto) 1 % (0-3) Neutrophils # (Auto) 4.6 x10^3uL (1.8-7.7) Lymphocytes # (Auto) 1.3 x10^3/uL (1.0-4.8) Monocytes # (Auto) 0.6 x10^3/uL (0.0-1.1) Eosinophils # (Auto) 0.1 x10^3/uL (0.0-0.7) Basophils # (Auto) 0.1 x10^3/uL (0.0-0.2) Segmented Neutrophils % 60 % (35-66) Band Neutrophils % 5 % (0-9) Lymphocytes % 22 % (24-48) Monocytes % 10 % (0-10) Eosinophils % 2 % (0-5) Metamyelocytes % 1 % (0-0) Platelet Estimate Increased (ADEQUATE) Prothrombin Time 13.3 SEC (11.7-14.0) Prothromb Time International Ratio 1.1 (0.8-1.1) Sodium Level 139 mmol/L (136-145) Potassium Level 4.3 mmol/L (3.5-5.1) Chloride Level 102 mmol/L (98-107) Carbon Dioxide Level 29 mmol/L (21-32) Anion Gap 8 (6-14) Blood Urea Nitrogen 17 mg/dL (8-26) Creatinine 1.2 mg/dL (0.7-1.3) Estimated GFR (Cockcroft-Gault) 58.7 BUN/Creatinine Ratio 14 (6-20) Glucose Level 138 mg/dL (70-99) Calcium Level 9.5 mg/dL (8.5-10.1) Magnesium Level 2.1 mg/dL (1.8-2.4) Total Bilirubin 0.5 mg/dL (0.2-1.0) Aspartate Amino Transf (AST/SGOT) 21 U/L (15-37) Alanine Aminotransferase (ALT/SGPT) 30 U/L (16-63) Alkaline Phosphatase 62 U/L (46-116) Creatine Kinase 87 U/L (39-308) Creatine Kinase MB (Mass) 1.0 ng/mL (0.0-3.6) Creatine Kinase MB Relative Index 1.1 % (0-4) Troponin I Quantitative < 0.017 ng/mL (0.000-0.055) < 0.017 ng/mL (0.000-0.055) < 0.017 ng/mL (0.000-0.055) KJ-Vuh-F-Type Natriuretic Peptide 333 pg/mL (0-449) Total Protein 7.7 g/dL (6.4-8.2) Albumin 3.8 g/dL (3.4-5.0) Albumin/Globulin Ratio 1.0 (1.0-1.7) Lipase 124 U/L (73-393) Urine Collection Type Unknown Urine Color Yellow Urine Clarity Clear Urine pH 7.0 Urine Specific [place] 1.015 Urine Protein Negative mg/dL (NEG-TRACE) Urine Glucose (UA) Negative mg/dL (NEG) Urine Ketones (Stick) Negative mg/dL (NEG) Urine Blood Negative (NEG) Urine Nitrite Negative (NEG) Urine Bilirubin Negative (NEG) Urine Urobilinogen Dipstick 0.2 mg/dL (0.2 mg/dL) Urine Leukocyte Esterase Negative (NEG) Urine RBC 0 /HPF (0-2) Urine WBC Occ /HPF (0-4) Urine Squamous Epithelial Cells Occ /LPF Urine Bacteria 0 /HPF (0-FEW) Test 06/22/18 05:50 White Blood Count 6.0 x10^3/uL (4.0-11.0) Red Blood Count 3.51 x10^6/uL (4.30-5.70) Hemoglobin 11.9 g/dL (13.0-17.5) Hematocrit 34.3 % (39.0-53.0) Mean Corpuscular Volume 98 fL (79-100) Mean Corpuscular Hemoglobin 34 pg (25-35) Mean Corpuscular Hemoglobin Concent 35 g/dL (31-37) Red Cell Distribution Width 12.6 % (11.5-14.5) Platelet Count 373 x10^3/uL (140-400) Neutrophils (%) (Auto) 59 % (31-73) Lymphocytes (%) (Auto) 26 % (24-48) Monocytes (%) (Auto) 11 % (0-9) Eosinophils (%) (Auto) 3 % (0-3) Basophils (%) (Auto) 1 % (0-3) Neutrophils # (Auto) 3.6 x10^3uL (1.8-7.7) Lymphocytes # (Auto) 1.6 x10^3/uL (1.0-4.8) Monocytes # (Auto) 0.6 x10^3/uL (0.0-1.1) Eosinophils # (Auto) 0.2 x10^3/uL (0.0-0.7) Basophils # (Auto) 0.1 x10^3/uL (0.0-0.2) Sodium Level 143 mmol/L (136-145) Potassium Level 4.4 mmol/L (3.5-5.1) Chloride Level 107 mmol/L (98-107) Carbon Dioxide Level 27 mmol/L (21-32) Anion Gap 9 (6-14) Blood Urea Nitrogen 17 mg/dL (8-26) Creatinine 1.1 mg/dL (0.7-1.3) Estimated GFR (Cockcroft-Gault) 64.9 Glucose Level 104 mg/dL (70-99) Calcium Level 8.8 mg/dL (8.5-10.1) Magnesium Level 2.2 mg/dL (1.8-2.4) Troponin I Quantitative < 0.017 ng/mL (0.000-0.055) Triglycerides Level 97 mg/dL (0-150) Cholesterol Level 121 mg/dL (0-200) LDL Cholesterol, Calculated 62 mg/dL (0-100) VLDL Cholesterol, Calculated 19 mg/dL (0-40) Non-HDL Cholesterol Calculated 81 mg/dL (0-129) HDL Cholesterol 40 mg/dL (40-60) Cholesterol/HDL Ratio 3.0 Medications Current Medications Aspirin (Raj Aspirin) 325 mg 1X ONCE PO Last administered on 06/21/18 13:17 ; Start 06/21/18 at 13:15; Stop 06/21/18 at 13:16; Status DC Sodium Chloride 1,000 ml @ 1,000 mls/hr 1X ONCE IV Last administered on at 13:17; Start 06/21/18 at 13:15; Stop 06/21/18 at 14:14; Status DC Lorazepam (Ativan) 0.5 mg 1X ONCE IV Last administered on 06/21/18at 14:37; Start 06/21/18 at 14:45; Stop 06/21/18 at 14:46; Status DC Amiodarone HCl (Cordarone) 400 mg BID PO Last administered on 06/22/18 09:47; Start 06/21/18 at 21:00 Ascorbic Acid (Vitamin C) 500 mg DAILY PO Last administered on 06/22/18at 09:51 ; Start 06/22/18 at 09:00 Aspirin (Ecotrin) 81 mg HS PO Last administered on 06/21/18at 21:47; Start 06/21 at 21:00 Niacin (Slo-Niacin) 500 mg DAILY PO Last administered on 06/22/18 09:48; Start 06/22/18 at 09:00 Oxycodone/ Acetaminophen (Percocet 5/325) 1 tab PRN Q4HRS PRN PO SEVERE PAIN; Start 06/21/18 at 17:00 Potassium Chloride (Klor-Con) 20 meq DAILYWBKFT PO Last administered on at 09:46; Start 06/22/18 at 08:00 Ticagrelor (Brilinta) 90 mg BID PO Last administered on 06/22/18 09:48; Start 06/21/18 at 21:00 Vitamin B Complex ([place] B) 1 tab DAILY PO Last administered on 06/22/18at 09:47 ; Start 06/22/18 at 09:00 Calcium Carbonate/ Glycine (Oscal) 500 mg DAILY PO Last administered on at 09:48; Start 06/22/18 at 09:00 Vitamin D (Vitamin D3) 5,000 unit DAILY PO Last administered on 06/22/18at 09:47 ; Start 06/22/18 at 09:00 Levothyroxine Sodium (Synthroid) 125 mcg DAILY06 PO Last administered on 05:56; Start 06/22/18 at 06:00 Magnesium Oxide (Magnesium Oxide) 400 mg BID PO Last administered on 06/22/18at 09:47; Start 06/21/18 at 21:00 Metoprolol Succinate (Toprol Xl) 100 mg DAILY PO Last administered on at 09:52; Start 06/22/18 at 09:00 Fish Oil (Fish Oil) 1,000 mg DAILY PO ; Start 06/22/18 at 09:00 Non-Formulary Medication (Prasterone (Dhea) (Dhea)) 75 mg DAILY PO ; Start 06/22 at 09:00; Status UNV Acetaminophen (Tylenol) 650 mg PRN Q6HRS PRN PO FEVER; Start 06/21/18 at 17:00 Ondansetron HCl (Zofran) 4 mg PRN Q6HRS PRN IV NAUSEA/VOMITING; Start 06/21/18 at 17:00 Morphine Sulfate (Morphine Sulfate) 2 mg PRN Q2HR PRN IV MODERATE TO SEVERE PAIN; Start 06/21/18 at 17:00 Tramadol HCl (Ultram) 50 mg PRN Q6HRS PRN PO MILD TO MODERATE PAIN; Start 06/21 at 17:00 Docusate Sodium (Colace) 100 mg PRN DAILY PRN PO CONSTIPATION; Start 06/21/18 at 17:00 Enoxaparin Sodium (Lovenox 40mg Syringe) 40 mg Q24H SQ Last administered on 06/21/18at 18:20; Start 06/21/18 at 18:00 Alprazolam (Xanax) 0.25 mg PRN Q8HRS PRN PO ANXIETY / AGITATION Last administered on 06/22/18at 09:47; Start 06/21/18 at 21:45 Active Scripts Active Amiodarone Hcl 200 Mg Tablet 400 Mg PO BID 60 Days Brilinta (Ticagrelor) 90 Mg Tablet 90 Mg PO BID 90 Days Reported [estrodim] BID [pectacol] 6 Tab DAILY Green Tea Extract (Green Tea Avimor Extract) 250 Mg Capsule 350 Mg PO BID Glucosamine (Glucosamine Sulfate 2KCL) 1,000 Mg Tablet 2,000 Mg PO DAILY [berberine/grape seed] DAILY [D ribose] Unknown Dose Fish Oil 1,000 mg Softgel ([place]-3S/Dha/Epa/Fish Oil) 1 Each Capsule 1 Each PO DAILY Vitamin E (Vitamin E Mixed) 400 Unit Capsule 400 Unit PO DAILY Percocet 5-325 Mg Tablet (Oxycodone/Acetaminophen) 1 Each Tablet 1-2 Tab PO Q4HRS PRN Vitamin C (Ascorbic Acid) 500 Mg Tablet 500 Mg PO DAILY Vitamin D3 (Cholecalciferol (Vitamin D3)) 5,000 Unit Tablet 1 Tab PO DAILY Calcium (Calcium Carbonate) 500 Mg Tab.chew 600 Mg PO DAILY Niaspan (Niacin) 500 Mg Tab.er.24h 1 Tab PO DAILY B Complex (Vitamin B Complex) 1 Each Tablet 1 Each PO DAILY Dhea (Prasterone (Dhea)) 50 Mg Capsule 75 Mg PO DAILY Aspir 81 (Aspirin) 81 Mg Tablet.dr 1 Tab PO HS Magnesium (Magnesium Oxide) 400 Mg Capsule 1 Cap PO BID Klor-Con M20 (Potassium Chloride) 20 Meq Tab.er.prt DAILYWBKFT Metoprolol Succinate ( Xl ) (Metoprolol Succinate) 200 Mg Tab.er.24h 100 DAILY Synthroid (Levothyroxine Sodium) 125 Mcg Tablet 125 DAILY Vitals/I & O Vital Sign - Last 24 Hours 06/21/18 06/21/18 06/21/18 06/21/18 12:30 12:30 13:00 13:30 Temp 98.6 98.6 Pulse 61 60 61 61 Resp 18 18 18 17 B/P (MAP) 138/63 (88) 138/63 (88) 136/75 (95) 153/69 (97) Pulse Ox 98 98 99 98 O2 Delivery Room Air Room Air Room Air Room Air 06/21/18 06/21/18 06/21/18 06/21/18 14:00 14:30 15:00 18:31 Pulse 60 60 60 Resp 16 16 18 B/P (MAP) 126/71 (89) 142/78 (99) 115/63 (80) Pulse Ox 97 97 97 O2 Delivery Room Air Room Air Room Air Room Air 06/21/18 06/21/18 06/21/18 06/22/18 19:00 20:00 23:00 03:00 Temp 97.8 97.8 97.8 97.8 Pulse 63 60 63 Resp 16 16 18 B/P (MAP) 106/63 (77) 137/66 (89) Pulse Ox 100 100 98 O2 Delivery Room Air Room Air Room Air Room Air 06/22/18 06/22/18 06/22/18 06/22/18 07:00 08:00 09:47 09:52 Temp 97.5 97.5 Pulse 63 60 63 Resp 18 B/P (MAP) 132/60 (84) 132/70 132/70 Pulse Ox 97 O2 Delivery Room Air Room Air Intake and Output 06/21/18 06/21/18 06/22/18 15:00 23:00 07:00 Output Total 400 ml 500 ml Balance -400 ml -500 ml LM BRASWELL III DO Jun 22, 2018 10:58
[2018-06-22 11:00] VITALS: BP 126/58
[2018-06-22] MEDS ORDERED: ALPR0.254 PO (11:13)
== END 2018-06-22 11:00 | disposition home or self-care (01) ==
LOC: ER 12:10 → 1 WEST ICU 14:20
PROVIDERS: ADMIT Internal Medicine; ATTEND Internal Medicine
DX: R07.89 Other chest pain (principal); R55 Syncope and collapse; I25.10 Atherosclerotic heart disease of native coronary artery without angina pectoris; I10 Essential (primary) hypertension; G47.30 Sleep apnea, unspecified; F41.9 Anxiety disorder, unspecified; I49.3 Ventricular premature depolarization; Z45.02 Encounter for adjustment and management of automatic implantable cardiac defibrillator; Z85.46 Personal history of malignant neoplasm of prostate; Z87.891 Personal history of nicotine dependence; Z95.810 Presence of automatic (implantable) cardiac defibrillator; Z95.5 Presence of coronary angioplasty implant and graft; Z90.49 Acquired absence of other specified parts of digestive tract; Z82.49 Family history of ischemic heart disease and other diseases of the circulatory system
CPT/HCPCS: 36415; 71045; 80048; 80053; 80061; 81001; 82553; 83690; 83735; 83880; 84484; 85007; 85025; 85610; 87641; 93005; 96361; 96372; 96374; 99284; G0378; J1650; J2060; J7030; G0379

== ENCOUNTER 2018-07-02 10:28 | Emergency (ER) | payer MEDICARE, BC ==
[~2018-07-02] VITALS: Ht 177.8 cm; Wt 90.7 kg
[~2018-07-02 10:28] MED LIST changes: +ALPR0.254 PO
--- NOTE | 2018-07-02 10:59 | EKG ---
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
[2018-07-02] MEDS ORDERED: LORazepam 1 MG TABLET PO ONE (11:00)
--- NOTE | 2018-07-02 11:05 | PHYS DOC ---
Past Medical History Past Medical History: CAD, Cancer Additional Past Medical Histor: SLEEP APNEA, PROSTATE CANCER, IDIOVENTRICULAR DYSRYTHMIA Past Surgical History: Appendectomy, Pacemaker Additional Past Surgical Histo: SHOULDER, KNEE, Cardiac stent Alcohol Use: Occasionally Drug Use: None Adult General Chief Complaint Chief Complaint: Worried that his ICD will fire HPI HPI 77-year-old male presenting to the emergency department because he is worried that his ICD is going to go off this morning. He denies any symptoms. He denies chest pain shortness of breath lightheadedness feeling palpitations. onset today. location generalized. duration intermittent. Review of systems is negative for abdominal pain nausea vomiting fevers or chills. All other review of systems is negative unless otherwise noted in history of present illness. ED course: 77-year-old male presenting the emergency department out of concern that his ICD is going to go off. On arrival he is well-appearing with a normal heart rate. EKG obtained and reviewed by myself shows trigeminy pattern. ST segments are congruent. PVCs have appropriate repolarization. Not suggestive of ACS. Chest x-ray and blood work obtained along with interrogation of the device. The patient is mildly anxious appearing. He denies any acute symptoms. Pacemaker interrogation shows no therapy is delivered. I spoke with cardiology GUERO Martinez who stated the patient has an appointment with audiology today. We will discharge patient to refer her to cardiology later this afternoon.The patient has been examined and was not found to have an emergency medical condition. The patient was then discharged home in stable condition to follow up with their primary care physician over the next 1-2 days and cardiology today. They were to return if their symptoms worsened or if they were concerned for any reason. They were also instructed to return to the emergency department if they were unable to get the recommended and appropriate follow- up. Cqcy-xs-xudm discharge instructions and return precautions were given. Patient's questions were answered to their satisfaction. Patient is comfortable with plan. Review of Systems Review of Systems SEE ABOVE. Current Medications Current Medications Current Medications Medications (Trade) Dose Ordered Sig/Jl Start Time Stop Time Status Last Admin Dose Admin Lorazepam (Ativan) 1 mg 1X ONCE 07/02/18 11:15 07/02/18 11:16 DC Allergies Allergies Allergies Coded Allergies Type Severity Reaction Last Updated Verified mexiletine Allergy Severe 07/27/17 Yes Cephalosporins Allergy Intermediate itching and swelling 07/27/17 Yes amoxicillin Allergy Intermediate 07/27/17 Yes cefazolin Allergy Intermediate 07/27/17 Yes cephalexin Allergy Intermediate 07/27/17 Yes clavulanic acid Allergy Intermediate 07/27/17 Yes Physical Exam Physical Exam SEE ABOVE Constitutional: Well developed, well nourished, no acute distress, non-toxic appearance. HENT: Normocephalic, atraumatic, bilateral external ears normal, oropharynx moist, no oral exudates, nose normal. [] Eyes: PERRLA, EOMI, conjunctiva normal, no discharge. Neck: Normal range of motion, no tenderness, supple, no stridor. [] Cardiovascular: Heart rate regular rhythm, no murmur Lungs & Thorax: Bilateral breath sounds clear to auscultation Abdomen: Bowel sounds normal, soft, no tenderness, no masses, no pulsatile masses. [] Skin: Warm, dry, no erythema, no rash. Back: No tenderness, no CVA tenderness. [] Extremities: No tenderness, no cyanosis, no clubbing, ROM intact, no edema. Neurologic: Alert and oriented X 3, normal motor function, normal sensory function, no focal deficits noted. [] Psychologic: Affect normal, judgement normal, mood normal. [] Current Patient Data Vital Signs Vital Signs Date Time Temp Pulse Resp B/P (MAP) Pulse Ox O2 Delivery O2 Flow Rate FiO2 07/02/18 10:32 98.5 71 22 158/79 (105) 100 Room Air 98.5 Lab Values Laboratory Tests Test 07/02/18 10:44 White Blood Count 5.0 x10^3/uL (4.0-11.0) Red Blood Count 3.94 x10^6/uL (4.30-5.70) L Hemoglobin 13.3 g/dL (13.0-17.5) Hematocrit 38.3 % (39.0-53.0) L Mean Corpuscular Volume 97 fL (79-100) Mean Corpuscular Hemoglobin 34 pg (25-35) Mean Corpuscular Hemoglobin Concent 35 g/dL (31-37) Red Cell Distribution Width 13.3 % (11.5-14.5) Platelet Count 307 x10^3/uL (140-400) Neutrophils (%) (Auto) 59 % (31-73) Lymphocytes (%) (Auto) 26 % (24-48) Monocytes (%) (Auto) 12 % (0-9) H Eosinophils (%) (Auto) 1 % (0-3) Basophils (%) (Auto) 1 % (0-3) Neutrophils # (Auto) 3.0 x10^3uL (1.8-7.7) Lymphocytes # (Auto) 1.3 x10^3/uL (1.0-4.8) Monocytes # (Auto) 0.6 x10^3/uL (0.0-1.1) Eosinophils # (Auto) 0.1 x10^3/uL (0.0-0.7) Basophils # (Auto) 0.0 x10^3/uL (0.0-0.2) Prothrombin Time 13.7 SEC (11.7-14.0) Prothrombin Time INR 1.1 (0.8-1.1) PTT 26 SEC (24-38) Sodium Level 140 mmol/L (136-145) Potassium Level 4.2 mmol/L (3.5-5.1) Chloride Level 101 mmol/L (98-107) Carbon Dioxide Level 26 mmol/L (21-32) Anion Gap 13 (6-14) Blood Urea Nitrogen 18 mg/dL (8-26) Creatinine 1.4 mg/dL (0.7-1.3) H Estimated GFR (Cockcroft-Gault) 49.1 Glucose Level 129 mg/dL (70-99) H Calcium Level 9.6 mg/dL (8.5-10.1) Total Bilirubin 0.9 mg/dL (0.2-1.0) Direct Bilirubin 0.2 mg/dL (0.0-0.2) Aspartate Amino Transferase (AST) 24 U/L (15-37) Alanine Aminotransferase (ALT) 31 U/L (16-63) Alkaline Phosphatase 67 U/L (46-116) Troponin I Quantitative < 0.017 ng/mL (0.000-0.055) Total Protein 7.4 g/dL (6.4-8.2) Albumin 4.2 g/dL (3.4-5.0) Lipase 163 U/L (73-393) Laboratory Tests 07/02/18 10:44 Laboratory Tests 07/02/18 10:44 EKG EKG [] Radiology/Procedures Radiology/Procedures [] Course & Med Decision Making Course & Med Decision Making Pertinent Labs and Imaging studies reviewed. (See chart for details) [] Dragon Disclaimer Dragon Disclaimer This electronic medical record was generated, in whole or in part, using a voice recognition dictation system. Departure Departure Impression: Primary Impression: Encounter for medical screening examination Disposition: HOME, SELF-CARE Condition: STABLE Referrals: SCOTT MCGOVERN MD (PCP) Patient Instructions: Medical Screening Exam Additional Instructions: Thank you for allowing us to participate in your care today. Return to the emergency department you have any new or worsening symptoms, or if you are concerned for any reason. Return to emergency department if you have any new or concerning symptoms including but not limited to fever, chills, nausea, vomiting, intractable pain, any new rashes, chest pain, shortness of air , uncontrolled bleeding, difficulty breathing, and/or vision loss. Follow up with your primary care physician within 1-2 days and cardiology today in clinic. Call your Primary Doctor tomorrow and inform them of your visit today. If you do not have a primary care provider we are happy to provide you with a list of our primary care providers contact information. This condition should be evaluated by your primary care physician and any recommended consulting services for continued management within 2 days after discharge. If at any time, you are having difficulty getting into your primary care doctor or a specialist, return to the emergency department. MAYRA GARNER MD Jul 02, 2018 11:05
[2018-07-02 11:12] LABS: BASO % 1 % (0-3); CALCIUM 9.6 mg/dL (8.5-10.1); CREATININE 1.4 mg/dL (0.7-1.3); EOS # 0.1 x10^3/uL (0.0-0.7); EOS % 1 % (0-3); GFR 49.1; HEMATOCRIT 38.3 % (39.0-53.0); HEMOGLOBIN 13.3 g/dL (13.0-17.5); LYMPH # 1.3 x10^3/uL (1.0-4.8); LYMPH % 26 % (24-48); MEAN CORPUSCULAR HEMOGLOBIN 34 pg (25-35); MEAN CORPUSCULAR HGB CONC 35 g/dL (31-37); MEAN CORPUSCULAR VOLUME 97 fL (79-100); MONO # 0.6 x10^3/uL (0.0-1.1); MONO % 12 % (0-9); NEUT % 59 % (31-73); PLATELET COUNT 307 x10^3/uL (140-400); POTASSIUM 4.2 mmol/L (3.5-5.1); RED BLOOD COUNT 3.94 x10^6/uL (4.30-5.70); RED CELL DISTRIBUTION WIDTH 13.3 % (11.5-14.5)
[2018-07-02 11:17] LABS: ALBUMIN 4.2 g/dL (3.4-5.0); DIRECT BILIRUBIN 0.2 mg/dL (0.0-0.2); TOTAL BILIRUBIN 0.9 mg/dL (0.2-1.0); TOTAL PROTEIN 7.4 g/dL (6.4-8.2)
[2018-07-02 11:31] LABS: PROTHROMBIN TIME PATIENT 13.7 SEC (11.7-14.0)
[2018-07-02 12:01] VITALS: BP 114/55
--- NOTE | 2018-07-02 13:09 | RAD ---
Chest radiograph 07/02/2018 10:42 AM INDICATION: Chest pain COMPARISON: June 21, 2018 TECHNIQUE: Portable upright frontal view of the chest is provided. FINDINGS: The cardiomediastinal silhouette is within normal limits. Left chest wall cardiac device is in similar position. There are no pleural effusions. There is no pulmonary vascular congestion. There is no pneumothorax. The lungs are clear. No significant osseous abnormality is identified. IMPRESSION: No acute cardiopulmonary process. Electronically signed by: Olga Maldonado MD (07/02/2018 1:05 PM) [facility]
== END 2018-07-02 12:45 | disposition home or self-care (01) ==
LOC: ER 10:28
DX: Z45.018 Encounter for adjustment and management of other part of cardiac pacemaker (principal); I25.10 Atherosclerotic heart disease of native coronary artery without angina pectoris; Z88.1 Allergy status to other antibiotic agents; Z88.8 Allergy status to other drugs, medicaments and biological substances; Z95.5 Presence of coronary angioplasty implant and graft
CPT/HCPCS: 36415; 71045; 80048; 80076; 83690; 84484; 85025; 85610; 85730; 93005; 99284-25

== ENCOUNTER → 2018-10-20 | Outpatient (CLI) | payer MEDICARE, BC ==
--- NOTE | 2018-10-21 02:31 | PAIN ---
DATE OF SERVICE: DIAGNOSES: Cervical radiculopathy with cervical spinal stenosis and cervical degenerative disk disease. HISTORY OF PRESENT ILLNESS: The patient is a 78-year-old male who returns for followup status post cervical epidural steroid injection times 1, last done on 02/24/2018. The patient did very well with near 100% improvement until the last few weeks. The patient reports pain again returned about 3 weeks ago, but then it was gone after about 1 week. The patient reports the pain is 0 on a scale of 10 currently. Last week was one that was at its worst. He was playing some golf and the pain disappeared at the base of his neck and shoulders. The patient reports prior to that, it was becoming very painful when he made his appointment for today in the base of the neck, shoulders bilaterally, somewhat worse on the left as it had been about a year ago. The patient reports otherwise other than that doing very well with increased activity with greater ease and comfort, sleeping well at night, does not awaken him from sleep. He is doing great distance walking, doing activities at home, as well as recreational activities and traveling with good results and without difficulty. The patient reports that the pain now just a dull ache in the top of the shoulders, but is almost completely gone. The patient reports no new motor or sensory deficits, no new bowel or bladder incontinence or other complaints. PHYSICAL EXAMINATION: VITAL SIGNS: The patient's blood pressure is 111/66, pulse 70, respirations 18, temperature 97.7 degrees Fahrenheit, height 5 feet 10 inches and weight is 190 pounds. GENERAL: The patient is awake, alert, oriented, appropriate, very pleasant demeanor. HEENT: Shows normocephalic, atraumatic. Extraocular movements are intact and symmetrical. Oral cavity: Mucous membranes moist and pink. Dentition intact. NECK: Shows anterior throat supple without palpable lymphadenopathy noted. Swallow reflex symmetrical. CHEST: Shows normal with inspection. Breath sounds clear to auscultation bilaterally. HEART: Shows S1, S2 clear. No murmurs auscultated. ABDOMEN: Soft, nontender, nondistended. No palpable organomegaly is noted. No rebound or guarding demonstrated. BACK: The patient's back shows spine grossly in the midline, normal-appearing cervical lordotic curvature and thoracic kyphotic curvature. Cervical paraspinous muscle shows symmetrical on inspection and on palpation shows some very mild tenderness only with deeper palpation in the low lumbar distribution bilaterally without radiation. The patient has full rotational motion of cervical spine, both laterally; greater than 45 degrees, right and left with full extension, full forward flexion without significant pain reported. EXTREMITIES: Upper extremities show deep tendon reflexes 2+ in the biceps and triceps tendons. Motor exam is strong with rack cleaner strength rated at 5/5 at its biceps and triceps flexion. Peripheral pulses are 2+, radial distribution. No peripheral edema is noted bilaterally. ASSESSMENT AND PLAN: Options were discussed with the patient. The patient's old chart was reviewed as his current medication regimen updated. Current review of systems updated today as well. We will hold on any injections at this time, as the patient is currently doing quite well and also taking Brilinta for recent heart stent placement. The patient will be given Medrol Dosepak, which is called in for him to use in the future if necessary, as the patient does report he is having some traveling coming up with a vacation. He will be out of town for several weeks and might have it available in case it flares up while he is gone. The patient was given instruction, as well as side effects to be aware of with the medication and will follow up at this time on as needed basis. LILIAN PEREZ MD DR: SRINIVAS/elizabeth JOB#: [id number] / [id number]
== END | disposition home or self-care (01) ==
LOC: PNCL 11:35
PROVIDERS: ATTEND Anesthesiology
DX: M48.02 Spinal stenosis, cervical region (principal); M50.10 Cervical disc disorder with radiculopathy, unspecified cervical region
CPT/HCPCS: G0463

== ENCOUNTER → 2020-09-11 | Outpatient (CLI) | payer MEDICARE, BC ==
[~2020-09-11] MED LIST changes: -AMIO200T4; -AMIO200T4 PO; +AMIO200T6; +AMIO200T6 PO; -ASCO500T2 PO; +ASCO500T4 PO; +VITA-8 PO; -VITA400C36 PO
--- NOTE | 2020-09-11 22:01 | CARD ---
MR#: [id number] Date of Study: 09/11/2020 Ordering Physician: AURA LAFLEUR, Referring Physician: AURA LAFLEUR Tech: Summer Huston [facility] APPROVED REPORT EXAM: Two-dimensional and M-mode echocardiogram with Doppler and color Doppler. Other Information Quality : AverageHR: 60bpm Rhythm : Pacemaker INDICATION Cardiomyopathy 2D DIMENSIONS RVDd4.1 (2.9-3.5cm)Left Atrium(2D)3.7 (1.6-4.0cm) IVSd1.0 (0.7-1.1cm)Aortic Root(2D)3.9 (2.0-3.7cm) LVDd5.7 (3.9-5.9cm)LVOT Diameter2.8 (1.8-2.4cm) PWd0.8 (0.7-1.1cm)LVDs3.2 (2.5-4.0cm) FS (%) 44.4 %SV121.6 ml LVEF(%)75.0 (>50%) Aortic Valve AoV Peak Sim.107.1cm/sAoV VTI24.2cm AO Peak GR.4.6mmHgLVOT Peak Sim.90.0cm/s AO Mean GR.2mmHgAVA (VMAX)5.17cm2 Mitral Valve MV E Qzypahxs16.1cm/sMV DECEL [id number] MV A Iyevvcxz04.9cm/sE/A Ratio1.1 Tricuspid Valve TR P. Wztsmqkn817pr/sTR Peak Gr.26mmHg Pulmonary Vein S1 Qnvpcqxi11.1cm/sD2 Gglyaacx27.9cm/s PVa wsjemnci490cmei LEFT VENTRICLE The Left Ventricle is borderline dilated. There is normal left ventricular wall thickness. The left v entricular systolic function is normal and the ejection fraction is within normal range. Estimated ej ection fraction 50-55%. There is normal LV segmental wall motion. Transmitral Doppler flow pattern is Grade I-abnormal relaxation pattern. RIGHT VENTRICLE The right ventricle is normal size. There is normal right ventricular wall thickness. The right ventr icular systolic function is normal. ATRIA The left atrium is borderline dilated. The right atrium is borderline dilated. The interatrial septum is intact with no evidence for an atrial septal defect or patent foramen ovale as noted on 2-D or Do ppler imaging. AORTIC VALVE The aortic valve is normal in structure and function. Doppler and Color Flow revealed no significant aortic regurgitation. There is no significant aortic valvular stenosis. MITRAL VALVE The mitral valve is normal in structure and function. There is no evidence of mitral valve prolapse. There is no mitral valve stenosis. Doppler and Color-flow revealed mild mitral regurgitation. TRICUSPID VALVE The tricuspid valve is normal in structure and function. Doppler and Color Flow revealed mild tricusp id regurgitation. Estimated PAP 30 mmHg. There is no tricuspid valve stenosis. PULMONIC VALVE Doppler and Color Flow revealed no pulmonic valvular regurgitation. There is no pulmonic valvular tani nosis. GREAT VESSELS The aortic root is mildly enlarged. The ascending aorta is normal in size. The IVC is normal in size and collapses >50% with inspiration. PERICARDIAL EFFUSION There is no evidence of significant pericardial effusion. Critical Notification Critical Value: No <Conclusion> The left ventricular systolic function is normal and the ejection fraction is within normal range. E stimated ejection fraction 50-55%. There is normal LV segmental wall motion. Doppler and Color Flow revealed mild tricuspid regurgitation. Estimated PAP 30 mmHg. Signed by : Gavin Longoria, Electronically Approved : 09/11/2020 22:01:17
== END ==
LOC: ECHO 10:49
PROVIDERS: ATTEND Internal Medicine Cardiovascular Disease
DX: I08.1 Rheumatic disorders of both mitral and tricuspid valves (principal)
CPT/HCPCS: 93306

== ENCOUNTER → 2021-04-30 | Outpatient (CLI) | payer MEDICARE, BC ==
[~2021-04-30] MED LIST changes: +POTA-121; -POTA20TA4
--- NOTE | 2021-04-30 12:51 | CARD ---
MR#: [id number] Date of Study: 04/30/2021 Ordering Physician: CONSUELO FISCHER, Referring Physician: CONSUELO FISCHER, Tech: Andie Lima, [facility] APPROVED REPORT EXAM: Two-dimensional and M-mode echocardiogram with Doppler and color Doppler. Other Information Quality : AverageHR: 60bpm Rhythm : Pacemaker INDICATION Atrial Fibrillation LV Function:SystolicDiastolic Post Covid Surgery/Intervention ICD/Pacemaker: Date: 1996 2D DIMENSIONS RVDd3.1 (2.9-3.5cm)Left Atrium(2D)3.7 (1.6-4.0cm) IVSd1.0 (0.7-1.1cm)Aortic Root(2D)3.8 (2.0-3.7cm) LVDd4.8 (3.9-5.9cm)LVOT Diameter2.1 (1.8-2.4cm) PWd1.2 (0.7-1.1cm)LVDs3.5 (2.5-4.0cm) FS (%) 27.9 %SV58.7 ml LVEF(%)53.9 (>50%) Aortic Valve AoV Peak Sim.101.7cm/sAoV VTI24.8cm AO Peak GR.4.1mmHgLVOT Peak Sim.75.9cm/s LVOT VTI 17.54cmAO Mean GR.2mmHg CORBY (VMAX)1.32ux6SSE (VTI)2.48cm2 Mitral Valve MV E Rbfdocxj40.3cm/sMV DECEL XRZC671hc MV A Azolzpjg23.9cm/sMV E Mean Gr.1mmHg MV MXH43mpX/A Ratio1.3 MVA (PHT)3.47cm2 TDI E/Lateral E'9.6E/Medial E'8.9 Pulmonary Valve PV Peak Wruydetn07.3cm/sPV Peak Grad.2mmHg Tricuspid Valve TR P. Ypuctcif624pq/sRAP IPUHOCCL0pySc TR Peak Gr.94oeLaTAES68nvSh Pulmonary Vein S1 Putsemyc22.3cm/sD2 Dpsdpeuy50.4cm/s PVa iudofaoh183nsun LEFT VENTRICLE The left ventricle is normal size. There is mild concentric left ventricular hypertrophy. The left ve ntricular systolic function is normal. The Ejection Fraction is 55%. There is normal LV segmental wal l motion. Transmitral Doppler flow pattern is Grade II-pseudonormal filling dynamics. RIGHT VENTRICLE The right ventricle is mildly dilated. There is normal right ventricular wall thickness. The right ve ntricular systolic function is normal. There is a pacemaker lead in the right ventricle. ATRIA The left atrium size is normal. The right atrium is mildly dilated. The interatrial septum is intact with no evidence for an atrial septal defect or patent foramen ovale as noted on 2-D or Doppler imagi ng. AORTIC VALVE The aortic valve is normal in structure and function. Doppler and Color Flow revealed no significant aortic regurgitation. There is no significant aortic valvular stenosis. Calculated aortic valve area is 2.35 cm2 with maximum pressure gradient of 5 mmHg and mean pressure gradient of 3 mmHg. MITRAL VALVE The mitral valve is normal in structure and function. There is no evidence of mitral valve prolapse. There is no mitral valve stenosis. Doppler and Color-flow revealed trace to mild mitral regurgitation . TRICUSPID VALVE The tricuspid valve is normal in structure and function. Doppler and Color Flow revealed trace tricus pid regurgitation with an estimated PAP of 32 mmHg. There is no tricuspid valve stenosis. PULMONIC VALVE The pulmonic valve is not well visualized. Doppler and Color Flow revealed trace pulmonic valvular re gurgitation. GREAT VESSELS The aortic root is normal in size. The IVC is normal in size and collapses >50% with inspiration. PERICARDIAL EFFUSION There is no evidence of significant pericardial effusion. Critical Notification Critical Value: No <Conclusion> The left ventricular systolic function is normal. The Ejection Fraction is 55%. There is normal LV segmental wall motion. Pacer leads noted RA/RV. Trace to mild mitral regurgitation. Trace tricuspid regurgitation with an estimated PAP of 32 mmHg. There is no evidence of significant pericardial effusion. Signed by : Gopal Soliman, Electronically Approved : 04/30/2021 12:51:04
== END ==
LOC: ECHO 10:39
PROVIDERS: ATTEND Internal Medicine
DX: I34.0 Nonrheumatic mitral (valve) insufficiency (principal); I51.7 Cardiomegaly; B94.8 Sequelae of other specified infectious and parasitic diseases; G93.3 Postviral and related fatigue syndromes
CPT/HCPCS: 93306

== ENCOUNTER → 2021-09-12 | Outpatient (CLI) | payer MEDICARE, BC ==
[~2021-09-12] MED LIST changes: +AMIO200T53; +AMIO200T53 PO; -AMIO200T6; -AMIO200T6 PO; +DEXAMETHASONE PRES.FREE 10 MG/ML VIAL. ONE; +IOHEXOL 180 MG/ML 10 ML VIAL. ONE
--- NOTE | 2021-09-12 11:56 | PDOC ---
Progress Note - Pain Clinic Date of Service: DOS: DATE: 09/12/21 TIME: 11:51 Diagnosis: Dx: Cervical radiculopathy with cervical degenerative disc disease Lumbar radiculopathy lumbar degenerative disease lumbar spinal stenosis and lumbar spondylosis Osteoarthritis History or Present Illness: HPI: 80-year-old male returns last seen April 2020. Patient did very well with lumbar epidural steroid injection as well as radiofrequency ablation of the lumbar facet medial branches in 2017 patient returns today with pain in the base the neck and the right shoulder rating the right upper extremity for about 6 months or so worse over the past 2 to 3 months radiating to the left shoulder into the upper arm and forearm at times but his body in the arm and hand without any loss of motor function but significant radiation in the left arm patient reports an 8 on scale 10 is worse over the past week, 6 on average and 1 at its least and is a 6 today. Patient reports is worse with repetitive motions reaching with his right arm over his head lifting items or repetitive weight lifting reaching forward and driving a car using his right hand is noticeable patient reports is better with sitting or laying down supporting his arm on a armchair and does not generally awaken him from sleep at night. Patient reports he had a recent knee replacement on the left side as well and is still compensating with his gait for that. Patient reports that the pain in the neck and the shoulders aching and sharp shooting in the right arm with tingling and burning but without any loss of motor function or significant weakness at this time. Patient has been doing exercises also taking [id number] Tylenol which does help by about 40%. Physical Exam: VS: Blood pressure is 133/74 pulse 69 respirations 18 temperature 98.0 2 Fahrenheit height is 5 feet 8 inches weight is 210 pounds. PE: PHYSICAL EXAMINATION: GENERAL: The patient is awake, alert, oriented, appropriate, very pleasant in demeanor HEENT: Shows normocephalic, atraumatic. Extraocular movements are intact and symmetrical. Oral cavity: Mucous membranes moist and pink. Dentition is intact. NECK: Shows anterior throat supple without palpable lymphadenopathy noted. Swallow reflex symmetrical. CHEST: Shows normal on inspection. Breath sounds are clear bilaterally, no rales rhonchi or wheezes auscultated. HEART: Shows S1, S2 clear. No murmurs auscultated. ABDOMEN: Soft, nontender, nondistended. No palpable organomegaly is noted. No rebound or guarding demonstrated. BACK: Shows spine grossly in the midline. Normal-appearing cervical lordotic curvature. Cervical paraspinous muscles show symmetrical with inspection, on palpation some moderate tenderness diffusely bilaterally diffusely without significant radiation. Patient is good rotation motion cervical spine with some moderate tenderness with right lateral rotation but without difficulty with left lateral rotation as well as extension flexion performed without significant difficulty as well. There is slightly increased thoracic kyphosis, some minor flattening of the lumbar lordotic curvature. Lumbar paraspinous muscles show symmetrical on inspection, on palpation shows some moderate tenderness diffusely throughout the upper, middle and lower distribution of the paraspinous muscles without specific trigger points, without radiation of pain. The patient has good rotational motion of the lumbar spine, both laterally as well as extension and flexion without significant difficulty. No tenderness over the spinous processes, sacrum or sacroiliac regions. EXTREMITIES: Lower extremities show deep tendon reflexes 1+ in the patellar and tendo calcaneus tendons. Motor exam is 5 on a scale of 5 with right dorsiflexion, extension, quadriceps and hamstring flexion and 5/5 on the left. Peripheral pulses are 1 posterior tibial. No peripheral edema is noted bilaterally. Lower extremities are warm and dry to touch, equal in color and appearance. Upper extremity show deep tendon reflexes 2+ in the bicep tricep tendons, motor exam is 4 5 with right sales supervisor strength as well as 5 out of 5 on the left peripheral pulses are 2+ radial no peripheral edema is noted. Shoulder shrug strong and intact without loss of strength on resistance bilaterally. SKIN: Shows warm and dry, good turgor. No edema. No sores, rashes or bruising throughout. Procedure: Procedure: Options were discussed the patient. Patient's chart was reviewed his current medication regimen updated current review of systems updated today as well. We will proceed with a cervical epidural steroid injection today with fluoroscopic guidance. Risks were discussed including but not limited to: Bleeding, infection, possibility of epidural hematoma and subsequent neurological compromise, dural puncture, headaches, spinal cord and/or nerve damage, side effects of steroid medication, and poor results regarding pain control. Patient understands and wished to proceed. Patient will return to the clinic in approximately 2 weeks for follow-up, was counseled as to return appointment, activity level, and side effect to be aware of. Medication Injected: Med Injected: Procedure cervical epidural steroid injection at the C6-7 level, using local anesthetic under sterile prep and drape using C-arm fluoroscopic guidance under local anesthesia medications injected ; 20 mg dexamethasone +5 mL normal saline and 2 mL contrast; condition at discharge is stable patient tolerated procedure well. and had no complications Condition at Discharge: Condition at Discharge: Condition at discharge stable, patient tolerated procedure well and had no complications. LILIAN PEREZ MD Sep 12, 2021 11:56
--- NOTE | 2021-09-12 11:58 | PDOC4 ---
Procedure Note: ICD 10 Code: ICD 10 Code: M54.12 M50.30 Procedure Note: Patient was consented for cervical epidural steroid injection with fluoroscopic guidance. Risks were discussed including but not limited to: Bleeding, infection, possibility of epidural hematoma and subsequent neurological compromise, dural puncture, headaches, spinal cord and/or nerve damage, side effects of steroid medication, and poor results regarding pain control. Patient understands and wished to proceed. Procedure cervical epidural steroid injection at the C6-7 level, using local anesthetic under sterile prep and drape using C-arm fluoroscopic guidance under local anesthesia medications injected ; 20 mg dexamethasone +5 mL normal saline and 2 mL contrast; condition at discharge is stable patient tolerated procedure well. and had no complications LILIAN PEREZ MD Sep 12, 2021 11:58
== END | disposition home or self-care (01) ==
LOC: PNCL 10:48
PROVIDERS: ATTEND Anesthesiology
DX: M50.10 Cervical disc disorder with radiculopathy, unspecified cervical region (principal); M51.16 Intervertebral disc disorders with radiculopathy, lumbar region; M47.26 Other spondylosis with radiculopathy, lumbar region; M19.90 Unspecified osteoarthritis, unspecified site; I25.10 Atherosclerotic heart disease of native coronary artery without angina pectoris; I10 Essential (primary) hypertension; E78.00 Pure hypercholesterolemia, unspecified; E11.9 Type 2 diabetes mellitus without complications; K21.9 Gastro-esophageal reflux disease without esophagitis; G47.30 Sleep apnea, unspecified; Z87.891 Personal history of nicotine dependence; Z79.82 Long term (current) use of aspirin; Z79.899 Other long term (current) drug therapy; Z98.890 Other specified postprocedural states; Z88.1 Allergy status to other antibiotic agents; Z88.8 Allergy status to other drugs, medicaments and biological substances
CPT/HCPCS: 62321; J1100; Q9965

== ENCOUNTER → 2021-10-09 | Outpatient (CLI) | payer MEDICARE, BC ==
--- NOTE | 2021-10-09 11:32 | PDOC ---
Progress Note - Pain Clinic Date of Service: DOS: DATE: 10/09/21 TIME: 11:29 Diagnosis: Dx: Lumbar radiculopathy with lumbar degenerative disease lumbar spinal stenosis with lumbar spondylosis Cervical radiculopathy with cervical degenerative disc disease Left foot carpometacarpal osteoarthritis History or Present Illness: HPI: 81-year-old male returns for follow-up status post cervical epidural steroid injection last seen September 12, 2019 patient did very well with approximately 60% improvement overall pain in the base the neck and shoulders still more on the left than the right but present bilaterally patient reports that he was doing much better with distance walking doing household activities travel with greater ease and comfort sleeping better at night still sleeping without difficulty and about 8 hours without it awaken him from sleep patient reports the pain is returning on the base the neck and shoulders again more on the left than the right rated as a 7 on scale 10 is worst average and at its least describes aching and sharp can be constant with activity but again significantly improved since previous visit. Patient reports motor or sensory deficits or other complaints. Physical Exam: VS: Blood pressure is 160/110 pulse 77 respirations 18 temperature 98.2 F height 5 feet 8 inches weight 165 pounds. PE: PHYSICAL EXAMINATION: GENERAL: The patient is awake, alert, oriented, appropriate, very pleasant in demeanor HEENT: Shows normocephalic, atraumatic. Extraocular movements are intact and symmetrical. Oral cavity: Mucous membranes moist and pink. Dentition is intact. NECK: Shows anterior throat supple without palpable lymphadenopathy noted. Swallow reflex symmetrical. CHEST: Shows normal on inspection. Breath sounds are clear bilaterally, no rales or rhonchi. HEART: Shows S1, S2 clear. No murmurs auscultated. ABDOMEN: Soft, nontender, nondistended. No palpable organomegaly is noted. Well-healed surgical scarring noted BACK: Shows spine grossly in the midline. Normal-appearing cervical lordotic curvature. Cervical paraspinous muscles show symmetrical with inspection, palpation some moderate tenderness diffusely more on the left than the right inferior aspect the cervical paraspinous muscular as well as the superior medial trapezius bilaterally without trigger points or asymmetry. Patient shows full rotation motion cervical spine both laterally as well as full extension full forward flexion without significant increase in pain. There is slightly increased thoracic kyphosis, some minor flattening of the lumbar lordotic curvature. Lumbar paraspinous muscles show symmetrical on inspection, on palpation shows some moderate tenderness diffusely throughout the upper, middle and lower distribution of the paraspinous muscles without specific trigger points, without radiation of pain. The patient has good rotational motion of the lumbar spine, both laterally as well as extension and flexion without significant difficulty. No tenderness over the spinous processes, sacrum or sacroiliac regions. EXTREMITIES: Lower extremities show deep tendon reflexes 1+ in the patellar and tendo calcaneus tendons. Motor exam is 4 on a scale of 5 with right dorsiflexion, extension, quadriceps and hamstring flexion and 5/5 on the left. Peripheral pulses are 1+ posterior tibial. No peripheral edema is noted bilaterally. Lower extremities are warm and dry. Upper extremity show deep tendon reflexes 2+ in the bicep tricep tendons, motor exam is 4 scale 5 on the right and 5/5 on the left shoulder shrug strong intact without loss strength on resistance. Peripheral pulses are 2+ radial. SKIN: Shows warm and dry, good turgor. No edema. No sores, rashes or bruising throughout. Procedure: Procedure: Options were discussed with the patient. Patient's old heart was reviewed his current medication regimen updated current review of systems updated today as well. We will proceed with a cervical epidural steroid injection today with fluoroscopic guidance. Risks were discussed including but not limited to: Bleeding, infection, possibility of epidural hematoma and subsequent neurological compromise, dural puncture, headaches, spinal cord and/or nerve damage, side effects of steroid medication, and poor results regarding pain control. Patient understands and wished to proceed. Patient will return to the clinic in approximately 4 weeks for follow-up, was counseled as to return appointment, activity level, and side effects to be aware of. Medication Injected: Med Injected: Procedure cervical epidural steroid injection at the C6-7 level, using local anesthetic under sterile prep and drape using C-arm fluoroscopic guidance under local anesthesia medications injected ; 20 mg dexamethasone +5 mL normal saline and 2 mL contrast; condition at discharge is stable patient tolerated procedure well. and had no complications Condition at Discharge: Condition at Discharge: Condition at discharge is stable, patient tolerated the procedure well and had no complications. LILIAN PEREZ MD Oct 09, 2021 11:32
--- NOTE | 2021-10-09 11:33 | PDOC4 ---
Procedure Note: ICD 10 Code: ICD 10 Code: M54.12 M50.30 Procedure Note: Patient was consented for cervical epidural steroid injection with fluoroscopic guidance. Risks were discussed including but not limited to: Bleeding, infection, possibility of epidural hematoma and subsequent neurological compromise, dural puncture, headaches, spinal cord and/or nerve damage, side effects of steroid medication, and poor results regarding pain control. Patient understands and wished to proceed. Procedure cervical epidural steroid injection at the C6-7 level, using local anesthetic under sterile prep and drape using C-arm fluoroscopic guidance under local anesthesia medications injected ; 20 mg dexamethasone +5 mL normal saline and 2 mL contrast; condition at discharge is stable patient tolerated procedure well. and had no complications LILIAN PEREZ MD Oct 09, 2021 11:33
--- NOTE | 2021-10-15 12:49 | FMN ---
PT PROBLEMS Dictation dated October 09, 2021 was incorrectly dictated on wrong patient's chart, same first and last name however with different middle initial. LILIAN PEREZ MD Oct 15, 2021 12:49
== END | disposition home or self-care (01) ==
LOC: PNCL 10:42
PROVIDERS: ATTEND Anesthesiology
DX: M50.10 Cervical disc disorder with radiculopathy, unspecified cervical region (principal); M54.12 Radiculopathy, cervical region; M51.16 Intervertebral disc disorders with radiculopathy, lumbar region; M48.061 Spinal stenosis, lumbar region without neurogenic claudication; M47.26 Other spondylosis with radiculopathy, lumbar region; M19.072 Primary osteoarthritis, left ankle and foot; I10 Essential (primary) hypertension; E78.00 Pure hypercholesterolemia, unspecified; G47.30 Sleep apnea, unspecified; K21.9 Gastro-esophageal reflux disease without esophagitis; M19.90 Unspecified osteoarthritis, unspecified site; E11.9 Type 2 diabetes mellitus without complications; Z79.899 Other long term (current) drug therapy; Z98.890 Other specified postprocedural states; Z87.891 Personal history of nicotine dependence; Z72.89 Other problems related to lifestyle; Z88.1 Allergy status to other antibiotic agents; Z88.8 Allergy status to other drugs, medicaments and biological substances
CPT/HCPCS: 62321; J1100; Q9965

== ENCOUNTER → 2021-10-14 | Outpatient (CLI) | payer MEDICARE, BC ==
--- NOTE | 2021-10-14 14:30 | PDOC ---
Progress Note - Pain Clinic Date of Service: DOS: DATE: 10/14/21 TIME: 14:26 Diagnosis: Dx: Cervical radiculopathy with cervical degenerative disc disease and cervical spinal stenosis History or Present Illness: HPI: 81-year-old male returns status post cervical epidural steroid injection x1 last seen September 12, 2021 patient did very well with that 95% improvement for the first week pain the base the neck and the right shoulder and upper extremity patient reports beginning to return now mainly in the base of the neck on the right side rating the right upper extremity mostly the posterior aspect of the shoulder blade as well as in the deltoid and the upper triceps region of the right arm patient reports no motor loss but did have some numbness in the hand and thumb and fingers sometimes on the left hand as well patient reports his pain is a 5 on scale 10 is worse over the past week for an average 4 to [place] is a 4 today patient reports aching and tight can be dull as well worse with repetitive motions reaching over his head with his right hand occasionally disrupts his sleep but not most nights. Patient describes pain as aching and tight in the base the neck and shoulder as well. Patient reports no motor loss no bowel or bladder incontinence. Physical Exam: VS: Blood pressure is 147/68 pulse 72 respirations 16 temperature 90.3 F weight is 209 pounds. PE: PHYSICAL EXAMINATION: GENERAL: The patient is awake, alert, oriented, appropriate, very pleasant in demeanor HEENT: Shows normocephalic, atraumatic. Extraocular movements are intact and symmetrical. Oral cavity: Mucous membranes moist and pink. Dentition is intact. NECK: Shows anterior throat supple without palpable lymphadenopathy noted. Swallow reflex symmetrical. CHEST: Shows normal on inspection. Breath sounds are clear bilaterally, distant but no rales or rhonchi. HEART: Shows S1, S2 clear. No murmurs auscultated. ABDOMEN: Soft, nontender, nondistended. No palpable organomegaly is noted. BACK: Shows spine grossly in the midline. Normal-appearing cervical lordotic curvature. Cervical paraspinous muscles show symmetrical inspection, on palpation some moderate tenderness diffusely bilaterally diffusely without significant radiation. Patient does show good rotation of the cervical spine both laterally as well as extension and flexion with some moderate pain with far right lateral rotation but without radiation. There is slightly increased thoracic kyphosis, some flattening of the lumbar lordotic curvature. Lumbar paraspinous muscles show symmetrical on inspection, on palpation shows some moderate tenderness diffusely throughout the upper, middle and lower distribution of the paraspinous muscles bilaterally and also into the lower thoracic paraspinous musculature, firm and tender, but without specific trigger points, without radiation of pain. The patient has good rotational motion of the lumbar spine, both laterally as well as extension and flexion without significant difficulty. No tenderness over the spinous processes, sacrum or sacroiliac regions. EXTREMITIES: Lower extremities show deep tendon reflexes 2+ in the patellar and tendo calcaneus tendons. Motor exam is 5 on a scale of 5 with right dorsiflexion, extension, quadriceps and hamstring flexion and 5/5 on the left. Peripheral pulses are 1+ posterior tibial. No peripheral edema is noted bilaterally. Lower extremities are warm and dry to touch, equal in color and appearance. Upper extremity show deep tendon reflexes 2+/4 in the bilateral biceps and triceps tendons, motor exam strong with story analyst strength rated 5 out of 5 as is bicep tricep flexion and symmetrical. Shoulder shrug strong and intact without strength on resistance bilaterally. SKIN: Shows warm and dry, good turgor. No edema. No sores, rashes or bruising throughout. Procedure: Procedure: Options were discussed with the patient. Patient's chart was reviewed his current medication regimen updated current review of systems updated today as well. We will proceed with a cervical epidural steroid injection today with fluoroscopic guidance. Risks were discussed including but not limited to: Bleeding, infection, possibility of epidural hematoma and subsequent neurological compromise, dural puncture, headaches, spinal cord and/or nerve damage, side effects of steroid medication, and poor results regarding pain control. Patient understands and wished to proceed. Patient will return to clinic in approximately 2 weeks for follow-up, was counseled as to return farideh ointment, activity level, and side effects to be aware of. Medication Injected: Med Injected: Procedure cervical epidural steroid injection at the C6-7 level, using local anesthetic under sterile prep and drape using C-arm fluoroscopic guidance under local anesthesia medications injected ; 20 mg dexamethasone +5 mL normal saline and 2 mL contrast; condition at discharge is stable patient tolerated procedure well. and had no complications Condition at Discharge: Condition at Discharge: Condition at discharge stable, paced tolerated procedure well and had no complications. LILIAN PEREZ MD Oct 14, 2021 14:30
--- NOTE | 2021-10-14 14:31 | PDOC4 ---
Procedure Note: ICD 10 Code: ICD 10 Code: M54.12 M50.30 M4 8.02 Procedure Note: Patient was consented for cervical epidural steroid injection fluoroscopic guidance. Risks were discussed including but not limited to: Bleeding, infection, possibility of epidural hematoma and subsequent neurological compromise, dural puncture, headaches, spinal cord and/or nerve damage, side effects of steroid medication, and poor results regarding pain control. Patient understands and wished to proceed. Procedure cervical epidural steroid injection at the C6-7 level, using local anesthetic under sterile prep and drape using C-arm fluoroscopic guidance under local anesthesia medications injected ; 20 mg dexamethasone +5 mL normal saline and 2 mL contrast; condition at discharge is stable patient tolerated procedure well. and had no complications LILIAN PEREZ MD Oct 14, 2021 14:30
== END | disposition home or self-care (01) ==
LOC: PNCL 13:37
PROVIDERS: ATTEND Anesthesiology
DX: M50.10 Cervical disc disorder with radiculopathy, unspecified cervical region (principal); M48.02 Spinal stenosis, cervical region; M54.12 Radiculopathy, cervical region; I10 Essential (primary) hypertension; E78.00 Pure hypercholesterolemia, unspecified; G47.30 Sleep apnea, unspecified; K21.9 Gastro-esophageal reflux disease without esophagitis; M19.90 Unspecified osteoarthritis, unspecified site; E11.9 Type 2 diabetes mellitus without complications; Z87.891 Personal history of nicotine dependence; Z79.82 Long term (current) use of aspirin; Z79.899 Other long term (current) drug therapy; Z98.890 Other specified postprocedural states; Z72.89 Other problems related to lifestyle; Z88.1 Allergy status to other antibiotic agents; Z88.8 Allergy status to other drugs, medicaments and biological substances
CPT/HCPCS: 62321; J1100; Q9965